=== PATIENT | female | born 2000 | race Caucasian/White ===

== ENCOUNTER 2021-05-30 15:13 | Inpatient (IN) | payer MEDICAID ==
[~2021-05-30] VITALS: Ht 157.5 cm; Wt 65.0 kg
[2021-05-30 16:25] LABS: HEMATOCRIT 42.2 % (36.0-47.0); MEAN CORPUSCULAR HEMOGLOBIN 28.6 pg (27.0-33.0); MEAN CORPUSCULAR HGB CONC 33.2 g/dl (32.0-36.5); MEAN CORPUSCULAR VOLUME 86.3 fl (80.0-96.0); PLATELET COUNT, AUTOMATED 237 10^3/uL (150-450); RED BLOOD COUNT 4.89 10^6/uL (4.00-5.40); WHITE BLOOD COUNT 12.9 10^3/uL (4.0-10.0)
[2021-05-30 16:57] LABS: AMPHETAMINES LEVEL URINE NEGATIVE (NEGATIVE); BARBITURATES URINE NEGATIVE (NEGATIVE); BENZODIAZEPINES URINE NEGATIVE (NEGATIVE); CANNABINOIDS URINE POSITIVE (NEGATIVE); COCAINE METABOLITE URINE NEGATIVE (NEGATIVE); METHADONE URINE NEGATIVE (NEGATIVE); OPIATES URINE NEGATIVE (NEGATIVE); PHENCYCLIDINE URINE NEGATIVE (NEGATIVE)
[2021-05-30 16:58] LABS: HCG, SERUM QUALITATIVE NEGATIVE (NEGATIVE)
[2021-05-30 17:11] LABS: ACETAMINOPHEN LEVEL < 2.0 UG/ML (10.0-30.0); ALBUMIN 3.9 GM/DL (3.2-5.2); ALT/SGPT 17 U/L (12-78); BILIRUBIN,DIRECT < 0.1 MG/DL (0.0-0.2); BILIRUBIN,TOTAL 0.2 MG/DL (0.2-1.0); BLOOD UREA NITROGEN 7 MG/DL (7-18); CALCIUM LEVEL 9.8 MG/DL (8.5-10.1); CARBON DIOXIDE LEVEL 23 MEQ/L (21-32); CHLORIDE LEVEL 108 MEQ/L (98-107); CREATININE FOR GFR 0.73 MG/DL (0.55-1.30); ETHYL ALCOHOL (ETHANOL) < 0.003 % (0.000-0.010); GLOMERULAR FILTRATION RATE > 60.0 (>60); GLUCOSE, FASTING 108 MG/DL (70-100); SALICYLATE LEVEL 5.1 MG/DL (5.0-30.0); SODIUM LEVEL 140 MEQ/L (136-145); TOTAL PROTEIN 7.3 GM/DL (6.4-8.2)
[2021-05-30 18:04] LABS: RSV AMPLIFICATION NEGATIVE (NEGATIVE)
[2021-05-30] MEDS ORDERED: HOME MED LIST COMPLETE! XX SCH (19:35)
[2021-05-30] MEDS ORDERED: CLAR10CA3 PO (19:35)
[2021-05-30] MEDS ORDERED: ZOLO100T PO (19:35)
[2021-05-30] MEDS ORDERED: D31000TA2 PO (19:35)
[2021-05-30] MEDS ORDERED: RISP3TAB20 PO (19:35)
[2021-05-30] MEDS ORDERED: PRAZ1CAP PO (19:35)
[2021-05-30] MEDS ORDERED: SENN-111 PO (19:35)
[2021-05-30] MEDS ORDERED: BENZ0.5T23 PO (19:35)
[2021-05-30] MEDS ORDERED: ACETAMINOPHEN TAB 650MG DOSE (2X325MG) PO PRN (22:35)
[2021-05-30] MEDS ORDERED: MAALOX 30 ML SUSP *UDC PO PRN (22:35)
[2021-05-30] MEDS ORDERED: MOM 30ML SUSPENSION UDC PO PRN (22:35)
[2021-05-30 23:12] VITALS: BP 136/77
[2021-05-30] MEDS: risperiDONE 3 MG TAB PO SCH (23:37)
[2021-05-30] MEDS: BENZTROPINE 0.5 MG TAB PO SCH (23:37)
[2021-05-30] MEDS: PRAZOSIN 1 MG CAP PO SCH (23:37)
[2021-05-30] MEDS: SENNA 8.6 MG TAB (SENOKOT) PO SCH (23:37)
[2021-05-31 06:55] VITALS: BP 120/77
[2021-05-31] MEDS: BENZTROPINE 0.5 MG TAB PO SCH ×2 (08:09→20:02)
[2021-05-31] MEDS: risperiDONE 3 MG TAB PO SCH ×2 (08:09→20:02)
[2021-05-31] MEDS: VITAMIN D 1,000 INTERNATIONAL UNITS TABLET PO SCH (08:09)
[2021-05-31] MEDS: LORATADINE 10 MG TAB PO SCH (08:10)
[2021-05-31] MEDS ORDERED: SERTRALINE HCL 50 MG TAB PO SCH (09:00)
[2021-05-31 12:34] LABS: HEMOGLOBIN 13.4 g/dl (12.0-15.5); MEAN CORPUSCULAR HEMOGLOBIN 28.2 pg (27.0-33.0); MEAN CORPUSCULAR HGB CONC 32.7 g/dl (32.0-36.5); MEAN CORPUSCULAR VOLUME 86.1 fl (80.0-96.0); PLATELET COUNT, AUTOMATED 241 10^3/uL (150-450); RED BLOOD COUNT 4.76 10^6/uL (4.00-5.40); WHITE BLOOD COUNT 7.3 10^3/uL (4.0-10.0)
[2021-05-31 16:45] VITALS: BP 139/87
[2021-05-31] MEDS: traZODone 50 MG TAB PO PRN (20:02)
[2021-05-31] MEDS: SENNA 8.6 MG TAB (SENOKOT) PO SCH (20:02)
[2021-05-31] MEDS: PRAZOSIN 1 MG CAP PO SCH (20:02)
[2021-06-01 06:52] VITALS: BP 116/66
[2021-06-01 07:39] LABS: CHOLESTEROL RISK RATIO 3.304 (<5)
[2021-06-01] MEDS: ESCITALOPRAM OXALATE 10 MG TAB (LEXAPRO) PO SCH (08:04)
[2021-06-01] MEDS: VITAMIN D 1,000 INTERNATIONAL UNITS TABLET PO SCH (08:04)
[2021-06-01] MEDS: risperiDONE 3 MG TAB PO SCH ×2 (08:04→20:44)
[2021-06-01] MEDS: LORATADINE 10 MG TAB PO SCH (08:04)
[2021-06-01] MEDS: BENZTROPINE 0.5 MG TAB PO SCH ×2 (08:04→20:43)
[2021-06-01 17:52] VITALS: BP 133/80
[2021-06-01 20:41] VITALS: BP 125/78
[2021-06-01] MEDS: PRAZOSIN 1 MG CAP PO SCH (20:41)
[2021-06-01] MEDS: SENNA 8.6 MG TAB (SENOKOT) PO SCH (20:43)
[2021-06-01] MEDS: traZODone 50 MG TAB PO PRN (20:44)
[2021-06-02 06:53] VITALS: BP 115/72
[2021-06-02] MEDS: BENZTROPINE 0.5 MG TAB PO SCH (08:30)
[2021-06-02] MEDS: LORATADINE 10 MG TAB PO SCH (08:30)
[2021-06-02] MEDS: VITAMIN D 1,000 INTERNATIONAL UNITS TABLET PO SCH (08:30)
[2021-06-02] MEDS: ESCITALOPRAM OXALATE 10 MG TAB (LEXAPRO) PO SCH (08:30)
[2021-06-02] MEDS: risperiDONE 3 MG TAB PO SCH (08:30)
[2021-06-02] MEDS ORDERED: TRAZ-252 PO (10:13)
[2021-06-02] MEDS ORDERED: LEXA1TAB PO (13:33)
== END 2021-06-02 13:10 | disposition home or self-care (01) | DRG 755 ==
LOC: M ED 15:13 → M ED INP 15:14 → M PSY 23:02
PROVIDERS: ADMIT Psychiatry & Neurology Psychiatry; ATTEND Psychiatry & Neurology Psychiatry
DX: F43.23 Adjustment disorder with mixed anxiety and depressed mood (principal); F20.9 Schizophrenia, unspecified; F43.10 Post-traumatic stress disorder, unspecified; Z79.899 Other long term (current) drug therapy; F17.200 Nicotine dependence, unspecified, uncomplicated; F12.90 Cannabis use, unspecified, uncomplicated

== ENCOUNTER 2021-07-20 12:22 | Inpatient (IN) | payer MEDICAID, OTHER ==
[~2021-07-20] VITALS: Ht 152.4 cm; Wt 70.5 kg
[~2021-07-20 12:22] MED LIST: BENZ0.5T23 PO; CLAR10CA3 PO; LEXA1TAB PO; PRAZ1CAP PO; RISP3TAB20 PO; SENN-111 PO; TRAZ-252 PO; VITA100093 PO; ZOLO100T PO
[2021-07-20] MEDS ORDERED: SERO1TAB3 (12:34)
[2021-07-20 13:32] LABS: HEMATOCRIT 44.4 % (36.0-47.0); HEMOGLOBIN 14.9 g/dl (12.0-15.5); MEAN CORPUSCULAR HEMOGLOBIN 29.2 pg (27.0-33.0); MEAN CORPUSCULAR HGB CONC 33.6 g/dl (32.0-36.5); MEAN CORPUSCULAR VOLUME 86.9 fl (80.0-96.0); PLATELET COUNT, AUTOMATED 231 10^3/uL (150-450); RED BLOOD COUNT 5.11 10^6/uL (4.00-5.40); WHITE BLOOD COUNT 9.7 10^3/uL (4.0-10.0)
[2021-07-20 14:07] LABS: ACETAMINOPHEN LEVEL < 2.0 UG/ML (10.0-30.0); ALT/SGPT 12 U/L (12-78); BILIRUBIN,DIRECT < 0.1 MG/DL (0.0-0.2); BILIRUBIN,TOTAL 0.2 MG/DL (0.2-1.0); BLOOD UREA NITROGEN 6 MG/DL (7-18); CARBON DIOXIDE LEVEL 25 MEQ/L (21-32); CHLORIDE LEVEL 111 MEQ/L (98-107); CREATININE FOR GFR 0.75 MG/DL (0.55-1.30); ETHYL ALCOHOL (ETHANOL) < 0.003 % (0.000-0.010); GLOMERULAR FILTRATION RATE > 60.0 (>60); GLUCOSE, FASTING 91 MG/DL (70-100); POTASSIUM SERUM 3.9 MEQ/L (3.5-5.1); SALICYLATE LEVEL 6.6 MG/DL (5.0-30.0); SODIUM LEVEL 141 MEQ/L (136-145); TOTAL PROTEIN 7.4 GM/DL (6.4-8.2)
[2021-07-20 14:13] LABS: AMPHETAMINES LEVEL URINE NEGATIVE (NEGATIVE); BARBITURATES URINE NEGATIVE (NEGATIVE); BENZODIAZEPINES URINE NEGATIVE (NEGATIVE); CANNABINOIDS URINE POSITIVE (NEGATIVE); COCAINE METABOLITE URINE NEGATIVE (NEGATIVE); METHADONE URINE NEGATIVE (NEGATIVE); OPIATES URINE NEGATIVE (NEGATIVE); PHENCYCLIDINE URINE NEGATIVE (NEGATIVE)
[2021-07-20] MEDS ORDERED: LORazepam 1 MG TAB PO STA (16:40)
[2021-07-20] MEDS ORDERED: MAALOX 30 ML SUSP *UDC PO PRN (17:35)
[2021-07-20] MEDS ORDERED: MOM 30ML SUSPENSION UDC PO PRN (17:35)
[2021-07-20] MEDS ORDERED: TRAZ-186 PO (19:14)
[2021-07-20] MEDS ORDERED: LEXA1TAB PO (19:14)
[2021-07-20] MEDS ORDERED: SERO1TAB3 PO (19:14)
[2021-07-20] MEDS ORDERED: HOME MED LIST COMPLETE! XX SCH (19:15)
[2021-07-20 20:59] LABS: RSV AMPLIFICATION NEGATIVE (NEGATIVE)
[2021-07-20 21:50] VITALS: BP 136/68
[2021-07-20] MEDS: QUEtiapine FUMARATE 25 MG TAB PO SCH (21:54)
[2021-07-21 06:40] VITALS: BP 120/73
[2021-07-21] MEDS ORDERED: BENZTROPINE 0.5 MG TAB PO PRN (12:10)
[2021-07-21] MEDS ORDERED: NICOTINE 21MG/24HR 1 EA TRANSDERMAL TD PRN (12:15)
[2021-07-21] MEDS: LORATADINE 10 MG TAB PO SCH (13:05)
[2021-07-21] MEDS: VITAMIN D 1,000 INTERNATIONAL UNITS TABLET PO SCH (13:05)
[2021-07-21] MEDS: traZODone 50 MG TAB PO PRN (20:32)
[2021-07-21] MEDS: QUEtiapine FUMARATE 25 MG TAB PO SCH (20:33)
[2021-07-21] MEDS ORDERED: BENZTROPINE 0.5 MG TAB PO ONE (21:00)
[2021-07-21] MEDS ORDERED: PRAZOSIN 1 MG CAP PO SCH (21:00)
[2021-07-22] MEDS: OLANZapine ORAL DISINTEGRATING TAB 5MG PO PRN (01:12)
[2021-07-22] MEDS ORDERED: LORazepam 2 MG TAB PO STA (01:56)
[2021-07-22] MEDS ORDERED: diphenhydrAMINE 50MG CAP PO STA (01:56)
[2021-07-22] MEDS: VITAMIN D 1,000 INTERNATIONAL UNITS TABLET PO SCH (09:13)
[2021-07-22] MEDS: LORATADINE 10 MG TAB PO SCH (09:13)
[2021-07-22] MEDS: ACETAMINOPHEN TAB 650MG DOSE (2X325MG) PO PRN (13:33)
[2021-07-22] MEDS: ESCITALOPRAM OXALATE 5MG TABLET (LEXAPRO) PO SCH (14:24)
[2021-07-22 18:55] VITALS: BP 140/80
[2021-07-22] MEDS: QUEtiapine FUMARATE 25 MG TAB PO SCH (20:13)
[2021-07-22] MEDS: traZODone 50 MG TAB PO PRN (20:13)
[2021-07-22] MEDS: PRAZOSIN 1 MG CAP PO SCH (20:14)
[2021-07-23 06:00] VITALS: BP 130/74
[2021-07-23] MEDS: ESCITALOPRAM OXALATE 5MG TABLET (LEXAPRO) PO SCH (09:29)
[2021-07-23] MEDS: VITAMIN D 1,000 INTERNATIONAL UNITS TABLET PO SCH (09:29)
[2021-07-23] MEDS: LORATADINE 10 MG TAB PO SCH (09:29)
[2021-07-23] MEDS ORDERED: diphenhydrAMINE 50MG CAP PO STA (14:14)
[2021-07-23] MEDS: OLANZapine ORAL DISINTEGRATING TAB 5MG PO PRN (14:14)
[2021-07-23] MEDS ORDERED: LORazepam 2 MG TAB PO STA (14:14)
[2021-07-23 18:58] VITALS: BP 140/80
[2021-07-23] MEDS: PRAZOSIN 1 MG CAP PO SCH (20:58)
[2021-07-23] MEDS: QUEtiapine FUMARATE 25 MG TAB PO SCH (20:58)
[2021-07-24 06:48] VITALS: BP 109/68
[2021-07-24] MEDS: ESCITALOPRAM OXALATE 5MG TABLET (LEXAPRO) PO SCH (08:51)
[2021-07-24] MEDS: VITAMIN D 1,000 INTERNATIONAL UNITS TABLET PO SCH (08:51)
[2021-07-24] MEDS: LORATADINE 10 MG TAB PO SCH (08:51)
[2021-07-24] MEDS: OLANZapine ORAL DISINTEGRATING TAB 5MG PO PRN (08:51)
[2021-07-24] MEDS: QUEtiapine FUMARATE 25 MG TAB PO SCH (20:43)
[2021-07-24 20:45] VITALS: BP 146/83
[2021-07-24] MEDS: PRAZOSIN 1 MG CAP PO SCH (20:45)
[2021-07-24] MEDS: ACETAMINOPHEN TAB 650MG DOSE (2X325MG) PO PRN (21:27)
[2021-07-25 06:33] VITALS: BP 145/83
[2021-07-25] MEDS: ESCITALOPRAM OXALATE 5MG TABLET (LEXAPRO) PO SCH (08:02)
[2021-07-25] MEDS: VITAMIN D 1,000 INTERNATIONAL UNITS TABLET PO SCH (08:02)
[2021-07-25] MEDS: LORATADINE 10 MG TAB PO SCH (08:02)
[2021-07-25] MEDS ORDERED: PRAZ2CAP PO (09:22)
[2021-07-25] MEDS ORDERED: LEXA5TAB13 PO (09:22)
[2021-07-25] MEDS ORDERED: NICO21PAT TD (09:22)
[2021-07-25] MEDS ORDERED: BENZ0.5T23 PO (09:22)
[2021-07-25] MEDS ORDERED: TRAZ-186 PO (09:22)
[2021-07-25] MEDS ORDERED: CLAR10TA7 PO (09:22)
[2021-07-25] MEDS ORDERED: QUET1TAB17 PO (09:22)
[2021-07-25] MEDS ORDERED: VITAD1000T PO (09:22)
== END 2021-07-25 10:45 | disposition home or self-care (01) | DRG 750 ==
LOC: M ED 12:22 → M ED INP 17:33 → M PSY 21:32
PROVIDERS: ADMIT Psychiatry & Neurology Psychiatry; ATTEND Psychiatry & Neurology Psychiatry
DX: F25.1 Schizoaffective disorder, depressive type (principal); F79 Unspecified intellectual disabilities; R45.851 Suicidal ideations; F32.9 Major depressive disorder, single episode, unspecified; F17.210 Nicotine dependence, cigarettes, uncomplicated; F12.90 Cannabis use, unspecified, uncomplicated; Z79.899 Other long term (current) drug therapy

== ENCOUNTER 2021-08-04 15:42 | Inpatient (IN) | payer MEDICAID, OTHER, SELFPAY ==
[~2021-08-04] VITALS: Ht 157.5 cm; Wt 72.9 kg
[~2021-08-04 15:42] MED LIST changes: +CLAR10TA7 PO; +LEXA5TAB13 PO; +NICO21PAT TD; +PRAZ2CAP PO; +QUET1TAB17 PO; +SERO1TAB3; +SERO1TAB3 PO; +TRAZ-186 PO; +VITAD1000T PO
[2021-08-04 16:33] LABS: HEMATOCRIT 41.5 % (36.0-47.0); HEMOGLOBIN 14.1 g/dl (12.0-15.5); MEAN CORPUSCULAR HEMOGLOBIN 29.6 pg (27.0-33.0); MEAN CORPUSCULAR VOLUME 87.2 fl (80.0-96.0); PLATELET COUNT, AUTOMATED 250 10^3/uL (150-450); RED BLOOD COUNT 4.76 10^6/uL (4.00-5.40); WHITE BLOOD COUNT 10.6 10^3/uL (4.0-10.0)
[2021-08-04 17:01] LABS: AMPHETAMINES LEVEL URINE NEGATIVE (NEGATIVE); BARBITURATES URINE NEGATIVE (NEGATIVE); BENZODIAZEPINES URINE NEGATIVE (NEGATIVE); CANNABINOIDS URINE NEGATIVE (NEGATIVE); COCAINE METABOLITE URINE NEGATIVE (NEGATIVE); METHADONE URINE NEGATIVE (NEGATIVE); OPIATES URINE NEGATIVE (NEGATIVE); PHENCYCLIDINE URINE NEGATIVE (NEGATIVE)
[2021-08-04 17:08] LABS: ACETAMINOPHEN LEVEL < 2.0 UG/ML (10.0-30.0); ALBUMIN 3.9 GM/DL (3.2-5.2); ALT/SGPT 13 U/L (12-78); BILIRUBIN,DIRECT < 0.1 MG/DL (0.0-0.2); BILIRUBIN,TOTAL 0.2 MG/DL (0.2-1.0); BLOOD UREA NITROGEN 8 MG/DL (7-18); CALCIUM LEVEL 9.8 MG/DL (8.5-10.1); CARBON DIOXIDE LEVEL 24 MEQ/L (21-32); CHLORIDE LEVEL 109 MEQ/L (98-107); CREATININE FOR GFR 0.74 MG/DL (0.55-1.30); ETHYL ALCOHOL (ETHANOL) < 0.003 % (0.000-0.010); GLOMERULAR FILTRATION RATE > 60.0 (>60); GLUCOSE, FASTING 112 MG/DL (70-100); POTASSIUM SERUM 3.7 MEQ/L (3.5-5.1); SALICYLATE LEVEL 4.8 MG/DL (5.0-30.0); SODIUM LEVEL 141 MEQ/L (136-145); THYROID STIMULATING HORMONE 0.523 uIU/ML (0.358-3.740); TOTAL PROTEIN 7.1 GM/DL (6.4-8.2)
[2021-08-04 17:13] LABS: HCG, SERUM QUALITATIVE NEGATIVE (NEGATIVE)
[2021-08-04 17:51] LABS: RSV AMPLIFICATION NEGATIVE (NEGATIVE)
[2021-08-04] MEDS ORDERED: OLANZapine ORAL DISINTEGRATING TAB 5MG PO ONE (20:40)
[2021-08-04] MEDS ORDERED: LORazepam 2 MG TAB PO STA (21:54)
[2021-08-04] MEDS ORDERED: LEXA5TAB13 PO (22:05)
[2021-08-04] MEDS ORDERED: PRAZ2CAP PO (22:05)
[2021-08-04] MEDS ORDERED: VITA100093 PO (22:05)
[2021-08-04] MEDS ORDERED: TRAZ-252 PO (22:05)
[2021-08-04] MEDS ORDERED: LORA-674 PO (22:05)
[2021-08-04] MEDS ORDERED: NICO21DI38 TOP (22:05)
[2021-08-04] MEDS ORDERED: BENZ0.5T23 PO (22:05)
[2021-08-04] MEDS ORDERED: QUET1TAB17 PO (22:05)
[2021-08-04] MEDS ORDERED: MED REC COMMENT (22:27)
[2021-08-04] MEDS ORDERED: HOME MED LIST COMPLETE! XX SCH (22:30)
[2021-08-05] MEDS ORDERED: OLANZapine 10 MG TAB PO ONE (19:50)
[2021-08-05] MEDS ORDERED: LORazepam 2 MG TAB PO STA (20:26)
[2021-08-06] MEDS ORDERED: OLANZapine ORAL DISINTEGRATING TAB 5MG PO ONE (18:05)
[2021-08-07] MEDS ORDERED: LORazepam 2 MG TAB PO STA (11:40)
[2021-08-07] MEDS ORDERED: LORazepam 1 MG TAB PO PRN (14:05)
[2021-08-07] MEDS ORDERED: diphenhydrAMINE 25MG CAP PO PRN (14:05)
[2021-08-07] MEDS ORDERED: traZODone 50 MG TAB PO PRN (14:05)
[2021-08-07] MEDS ORDERED: BENZTROPINE 0.5 MG TAB PO PRN (14:05)
[2021-08-07] MEDS: NICOTINE 14 MG/24 HR TRANSDERMAL TD SCH (16:38)
[2021-08-07] MEDS: LORATADINE 10 MG TAB PO SCH (16:38)
[2021-08-07] MEDS: VITAMIN D 1,000 INTERNATIONAL UNITS TABLET PO SCH (16:39)
[2021-08-07] MEDS ORDERED: QUEtiapine FUMARATE 25 MG TAB PO SCH (21:00)
[2021-08-08] MEDS: PRAZOSIN 1 MG CAP PO SCH ×2 (00:52→20:14)
[2021-08-08 01:04] VITALS: BP 138/79
[2021-08-08] MEDS: VITAMIN D 1,000 INTERNATIONAL UNITS TABLET PO SCH (10:56)
[2021-08-08] MEDS: NICOTINE 14 MG/24 HR TRANSDERMAL TD SCH (10:57)
[2021-08-08] MEDS: LORATADINE 10 MG TAB PO SCH (10:57)
[2021-08-08] MEDS: ESCITALOPRAM OXALATE 5MG TABLET (LEXAPRO) PO SCH (12:59)
[2021-08-08] MEDS: ACETAMINOPHEN TAB 650MG DOSE (2X325MG) PO PRN (15:45)
[2021-08-08 18:00] VITALS: BP 134/67
[2021-08-08] MEDS ORDERED: CETIRIZINE (ZyrTEC) 10 MG TAB PO ONE (20:05)
[2021-08-08] MEDS ORDERED: ALBUTEROL 90 MCG/ACT 8GM HFA INHALER INH PRN (20:05)
[2021-08-08] MEDS ORDERED: MONTELUKAST 10 MG TAB PO ONE (20:05)
[2021-08-08] MEDS: QUEtiapine FUMARATE 200 MG TAB PO SCH (20:14)
[2021-08-08] MEDS: MICONAZOLE-7 VAGINAL 2% CREAM 47.7GM PV SCH (22:43)
[2021-08-09 06:59] VITALS: BP 118/60
[2021-08-09] MEDS: ESCITALOPRAM OXALATE 5MG TABLET (LEXAPRO) PO SCH (07:49)
[2021-08-09] MEDS: LORATADINE 10 MG TAB PO SCH (07:49)
[2021-08-09] MEDS: CETIRIZINE (ZyrTEC) 10 MG TAB PO SCH (07:49)
[2021-08-09] MEDS: VITAMIN D 1,000 INTERNATIONAL UNITS TABLET PO SCH (07:49)
[2021-08-09 08:21] LABS: CHOLESTEROL RISK RATIO 5.692 (<5)
[2021-08-09 08:30] VITALS: BP 118/60
[2021-08-09] MEDS: NICOTINE 21MG/24HR 1 EA TRANSDERMAL TD SCH (12:10)
[2021-08-09 16:28] VITALS: BP 129/77
[2021-08-09] MEDS: QUEtiapine FUMARATE 200 MG TAB PO SCH (20:09)
[2021-08-09] MEDS: traZODone 50 MG TAB PO PRN (20:09)
[2021-08-09] MEDS: PRAZOSIN 1 MG CAP PO SCH (20:09)
[2021-08-09] MEDS: MICONAZOLE-7 VAGINAL 2% CREAM 47.7GM PV SCH (20:56)
[2021-08-10 06:28] VITALS: BP 136/60
[2021-08-10] MEDS: VITAMIN D 1,000 INTERNATIONAL UNITS TABLET PO SCH (08:17)
[2021-08-10] MEDS: LORATADINE 10 MG TAB PO SCH (08:18)
[2021-08-10] MEDS: ESCITALOPRAM OXALATE 5MG TABLET (LEXAPRO) PO SCH (08:18)
[2021-08-10] MEDS: CETIRIZINE (ZyrTEC) 10 MG TAB PO SCH (08:18)
[2021-08-10] MEDS: NICOTINE 21MG/24HR 1 EA TRANSDERMAL TD SCH (08:18)
[2021-08-10] MEDS: BENZTROPINE 0.5 MG TAB PO SCH ×2 (11:37→20:17)
[2021-08-10] MEDS: MOM 30ML SUSPENSION UDC PO PRN (12:40)
[2021-08-10 18:30] VITALS: BP 132/80
[2021-08-10] MEDS: traZODone 50 MG TAB PO PRN (20:17)
[2021-08-10] MEDS: PRAZOSIN 1 MG CAP PO SCH (20:17)
[2021-08-10] MEDS: QUEtiapine FUMARATE 200 MG TAB PO SCH (20:18)
[2021-08-10] MEDS: MICONAZOLE-7 VAGINAL 2% CREAM 47.7GM PV SCH (20:18)
[2021-08-11 07:09] VITALS: BP 131/64
[2021-08-11] MEDS: CETIRIZINE (ZyrTEC) 10 MG TAB PO SCH (08:32)
[2021-08-11] MEDS: NICOTINE 21MG/24HR 1 EA TRANSDERMAL TD SCH (08:32)
[2021-08-11] MEDS: BENZTROPINE 0.5 MG TAB PO SCH ×2 (08:33→20:09)
[2021-08-11] MEDS: ESCITALOPRAM OXALATE 5MG TABLET (LEXAPRO) PO SCH (08:33)
[2021-08-11] MEDS: VITAMIN D 1,000 INTERNATIONAL UNITS TABLET PO SCH (08:33)
[2021-08-11] MEDS: LORATADINE 10 MG TAB PO SCH (08:33)
[2021-08-11 16:17] VITALS: BP 124/79
[2021-08-11] MEDS: MOM 30ML SUSPENSION UDC PO PRN (19:02)
[2021-08-11] MEDS: PRAZOSIN 1 MG CAP PO SCH (20:09)
[2021-08-11] MEDS: MICONAZOLE-7 VAGINAL 2% CREAM 47.7GM PV SCH (20:09)
[2021-08-11] MEDS: QUEtiapine FUMARATE 200 MG TAB PO SCH (20:09)
[2021-08-12] MEDS: NICOTINE 21MG/24HR 1 EA TRANSDERMAL TD SCH (08:13)
[2021-08-12] MEDS: ESCITALOPRAM OXALATE 5MG TABLET (LEXAPRO) PO SCH (08:16)
[2021-08-12] MEDS: LORATADINE 10 MG TAB PO SCH (08:16)
[2021-08-12] MEDS: BENZTROPINE 0.5 MG TAB PO SCH ×2 (08:16→20:06)
[2021-08-12] MEDS: CETIRIZINE (ZyrTEC) 10 MG TAB PO SCH (08:16)
[2021-08-12] MEDS: VITAMIN D 1,000 INTERNATIONAL UNITS TABLET PO SCH (08:16)
[2021-08-12] MEDS: SENNA 8.6 MG TAB (SENOKOT) PO PRN ×2 (14:03→20:07)
[2021-08-12 17:06] VITALS: BP 124/56
[2021-08-12] MEDS: PRAZOSIN 1 MG CAP PO SCH (20:06)
[2021-08-12] MEDS: MICONAZOLE-7 VAGINAL 2% CREAM 47.7GM PV SCH (20:06)
[2021-08-12] MEDS: QUEtiapine FUMARATE 200 MG TAB PO SCH (20:06)
[2021-08-12] MEDS: traZODone 50 MG TAB PO PRN (20:09)
[2021-08-12] MEDS: ACETAMINOPHEN TAB 650MG DOSE (2X325MG) PO PRN (21:42)
[2021-08-13] MEDS: BENZTROPINE 0.5 MG TAB PO SCH ×2 (07:51→20:00)
[2021-08-13] MEDS: CETIRIZINE (ZyrTEC) 10 MG TAB PO SCH (07:51)
[2021-08-13] MEDS: LORATADINE 10 MG TAB PO SCH (07:51)
[2021-08-13] MEDS: VITAMIN D 1,000 INTERNATIONAL UNITS TABLET PO SCH (07:51)
[2021-08-13] MEDS: NICOTINE 21MG/24HR 1 EA TRANSDERMAL TD SCH (07:52)
[2021-08-13] MEDS: ESCITALOPRAM OXALATE 5MG TABLET (LEXAPRO) PO SCH (07:52)
[2021-08-13] MEDS: SENNA 8.6 MG TAB (SENOKOT) PO PRN (14:01)
[2021-08-13 16:41] VITALS: BP 135/68
[2021-08-13 20:01] VITALS: BP 134/73
[2021-08-13] MEDS: PRAZOSIN 1 MG CAP PO SCH (20:01)
[2021-08-13] MEDS: QUEtiapine FUMARATE 200 MG TAB PO SCH (20:01)
[2021-08-13] MEDS: traZODone 50 MG TAB PO PRN (20:02)
[2021-08-13] MEDS: MAALOX 30 ML SUSP *UDC PO PRN (20:37)
[2021-08-14 06:20] VITALS: BP 129/60
[2021-08-14] MEDS: CETIRIZINE (ZyrTEC) 10 MG TAB PO SCH (08:01)
[2021-08-14] MEDS: SENNA 8.6 MG TAB (SENOKOT) PO PRN (08:01)
[2021-08-14] MEDS: VITAMIN D 1,000 INTERNATIONAL UNITS TABLET PO SCH (08:03)
[2021-08-14] MEDS: BENZTROPINE 0.5 MG TAB PO SCH (08:03)
[2021-08-14] MEDS: LORATADINE 10 MG TAB PO SCH (08:03)
[2021-08-14] MEDS: NICOTINE 21MG/24HR 1 EA TRANSDERMAL TD SCH (08:03)
[2021-08-14] MEDS: ESCITALOPRAM OXALATE 5MG TABLET (LEXAPRO) PO SCH (08:03)
[2021-08-14] MEDS ORDERED: LEXA5TAB13 PO (08:56)
[2021-08-14] MEDS ORDERED: QUET200T2 PO (08:56)
[2021-08-14] MEDS ORDERED: BENZ0.5T23 PO (08:56)
[2021-08-14] MEDS ORDERED: SENN18TA PO (08:56)
[2021-08-14] MEDS ORDERED: HALO5TAB33 PO (08:56)
[2021-08-14] MEDS ORDERED: PRAZ2CAP PO (08:56)
[2021-08-14] MEDS ORDERED: TRAZ-252 PO (08:56)
[2021-08-14] MEDS ORDERED: LEXA1TAB PO (08:56)
[2021-08-14] MEDS: MAALOX 30 ML SUSP *UDC PO PRN (13:01)
== END 2021-08-14 14:00 | disposition home or self-care (01) | DRG 750 ==
LOC: M ED 15:42 → M ED INP 08-07 14:40 → M PSY 08-08 00:29
PROVIDERS: ADMIT Student in an Organized Health Care Education/Training Program; ATTEND Student in an Organized Health Care Education/Training Program
DX: F20.9 Schizophrenia, unspecified (principal); F79 Unspecified intellectual disabilities; R45.851 Suicidal ideations; F41.9 Anxiety disorder, unspecified; N76.0 Acute vaginitis; G24.01 Drug induced subacute dyskinesia; Z88.8 Allergy status to other drugs, medicaments and biological substances; F43.10 Post-traumatic stress disorder, unspecified; J45.909 Unspecified asthma, uncomplicated; F17.200 Nicotine dependence, unspecified, uncomplicated; Z79.899 Other long term (current) drug therapy; Z91.410 Personal history of adult physical and sexual abuse

== ENCOUNTER 2021-08-17 11:23 | Inpatient (IN) | payer MEDICAID, SELFPAY ==
[~2021-08-17] VITALS: Ht 157.5 cm; Wt 56.8 kg
[2021-08-17] MEDS: NICOTINE 21MG/24HR 1 EA TRANSDERMAL TD SCH (09:00)
[~2021-08-17 11:23] MED LIST changes: +HALO5TAB33 PO; +LORA-674 PO; +MED REC COMMENT; +NICO21DI38 TOP; +QUET200T2 PO; +SENN18TA PO
[2021-08-17] MEDS ORDERED: PRAZ1CAP (11:35)
[2021-08-17 12:02] LABS: HEMATOCRIT 40.8 % (36.0-47.0); HEMOGLOBIN 13.4 g/dl (12.0-15.5); MEAN CORPUSCULAR HEMOGLOBIN 28.6 pg (27.0-33.0); MEAN CORPUSCULAR HGB CONC 32.8 g/dl (32.0-36.5); PLATELET COUNT, AUTOMATED 216 10^3/uL (150-450); RED BLOOD COUNT 4.69 10^6/uL (4.00-5.40); WHITE BLOOD COUNT 8.3 10^3/uL (4.0-10.0)
[2021-08-17 12:26] LABS: AMPHETAMINES LEVEL URINE NEGATIVE (NEGATIVE); BARBITURATES URINE NEGATIVE (NEGATIVE); BENZODIAZEPINES URINE NEGATIVE (NEGATIVE); CANNABINOIDS URINE NEGATIVE (NEGATIVE); COCAINE METABOLITE URINE NEGATIVE (NEGATIVE); METHADONE URINE NEGATIVE (NEGATIVE); OPIATES URINE NEGATIVE (NEGATIVE); PHENCYCLIDINE URINE NEGATIVE (NEGATIVE)
[2021-08-17 12:36] LABS: ACETAMINOPHEN LEVEL < 2.0 UG/ML (10.0-30.0); ALBUMIN 3.6 GM/DL (3.2-5.2); ALT/SGPT 23 U/L (12-78); BILIRUBIN,DIRECT < 0.1 MG/DL (0.0-0.2); BILIRUBIN,TOTAL < 0.1 MG/DL (0.2-1.0); BLOOD UREA NITROGEN 11 MG/DL (7-18); CALCIUM LEVEL 9.9 MG/DL (8.5-10.1); CARBON DIOXIDE LEVEL 25 MEQ/L (21-32); CHLORIDE LEVEL 111 MEQ/L (98-107); CREATININE FOR GFR 0.58 MG/DL (0.55-1.30); ETHYL ALCOHOL (ETHANOL) < 0.003 % (0.000-0.010); GLOMERULAR FILTRATION RATE > 60.0 (>60); GLUCOSE, FASTING 86 MG/DL (70-100); POTASSIUM SERUM 4.1 MEQ/L (3.5-5.1); SALICYLATE LEVEL 2.3 MG/DL (5.0-30.0); SODIUM LEVEL 142 MEQ/L (136-145); TOTAL PROTEIN 6.6 GM/DL (6.4-8.2)
[2021-08-17 12:45] LABS: HCG, SERUM QUALITATIVE NEGATIVE (NEGATIVE)
[2021-08-17] MEDS ORDERED: MOM 30ML SUSPENSION UDC PO PRN (14:40)
[2021-08-17] MEDS ORDERED: MAALOX 30 ML SUSP *UDC PO PRN (14:40)
[2021-08-17] MEDS ORDERED: NICO21DI38 TD (14:46)
[2021-08-17] MEDS ORDERED: LORA-674 PO (14:46)
[2021-08-17] MEDS ORDERED: PRAZ2CAP PO (14:46)
[2021-08-17] MEDS ORDERED: VITA100093 PO (14:46)
[2021-08-17] MEDS ORDERED: BENZ0.5T23 PO (14:46)
[2021-08-17] MEDS ORDERED: LEXA5TAB13 PO (14:46)
[2021-08-17] MEDS ORDERED: SENN-80 PO (14:46)
[2021-08-17] MEDS ORDERED: TRAZ-186 PO (14:46)
[2021-08-17] MEDS ORDERED: HALO5TAB33 PO (14:46)
[2021-08-17] MEDS ORDERED: QUET200T2 PO (14:46)
[2021-08-17] MEDS ORDERED: HOME MED LIST COMPLETE! XX SCH (14:50)
[2021-08-17] MEDS ORDERED: BENZTROPINE 0.5 MG TAB PO PRN (15:15)
[2021-08-17 15:24] LABS: RSV AMPLIFICATION NEGATIVE (NEGATIVE)
[2021-08-17 17:10] VITALS: BP 132/63
[2021-08-17] MEDS: QUEtiapine FUMARATE 200 MG TAB PO SCH (20:03)
[2021-08-17] MEDS: PRAZOSIN 1 MG CAP PO SCH (20:04)
[2021-08-17] MEDS: traZODone 50 MG TAB PO PRN (22:12)
[2021-08-18 06:31] VITALS: BP 124/61
[2021-08-18] MEDS: SENNA 8.6 MG TAB (SENOKOT) PO PRN (08:15)
[2021-08-18] MEDS: ESCITALOPRAM OXALATE 5MG TABLET (LEXAPRO) PO SCH (08:16)
[2021-08-18] MEDS: VITAMIN D 1,000 INTERNATIONAL UNITS TABLET PO SCH (08:16)
[2021-08-18] MEDS: NICOTINE 21MG/24HR 1 EA TRANSDERMAL TD SCH (08:16)
[2021-08-18] MEDS: LORATADINE 10 MG TAB PO SCH (10:04)
[2021-08-18] MEDS: ACETAMINOPHEN TAB 650MG DOSE (2X325MG) PO PRN (16:58)
[2021-08-18 18:30] VITALS: BP 134/73
[2021-08-18] MEDS: QUEtiapine FUMARATE 200 MG TAB PO SCH (20:02)
[2021-08-18] MEDS: traZODone 50 MG TAB PO PRN (20:03)
[2021-08-18] MEDS: PRAZOSIN 1 MG CAP PO SCH (20:03)
[2021-08-19 07:08] VITALS: BP 117/64
[2021-08-19] MEDS: NICOTINE 21MG/24HR 1 EA TRANSDERMAL TD SCH (08:09)
[2021-08-19] MEDS: VITAMIN D 1,000 INTERNATIONAL UNITS TABLET PO SCH (08:09)
[2021-08-19] MEDS: LORATADINE 10 MG TAB PO SCH (08:10)
[2021-08-19] MEDS: ESCITALOPRAM OXALATE 5MG TABLET (LEXAPRO) PO SCH (08:10)
[2021-08-19] MEDS ORDERED: OLANZapine ORAL DISINTEGRATING TAB 5MG PO PRN (15:55)
[2021-08-19 18:09] VITALS: BP 124/66
[2021-08-19] MEDS: QUEtiapine FUMARATE 200 MG TAB PO SCH (21:22)
[2021-08-19] MEDS: traZODone 50 MG TAB PO PRN (21:22)
[2021-08-19] MEDS: PRAZOSIN 1 MG CAP PO SCH (21:22)
[2021-08-20 06:54] VITALS: BP 127/79
[2021-08-20] MEDS: ESCITALOPRAM OXALATE 5MG TABLET (LEXAPRO) PO SCH (08:17)
[2021-08-20] MEDS: LORATADINE 10 MG TAB PO SCH (08:17)
[2021-08-20] MEDS: VITAMIN D 1,000 INTERNATIONAL UNITS TABLET PO SCH (08:17)
[2021-08-20] MEDS: NICOTINE 21MG/24HR 1 EA TRANSDERMAL TD SCH (08:17)
[2021-08-20 08:50] VITALS: BP 140/88
[2021-08-20] MEDS ORDERED: HALOPERIDOL DECANOATE 100 MG/ML VIAL (J1631) IM SCH (09:00)
[2021-08-20] MEDS ORDERED: buPROPion **XL** TABLET 150MG (WELLBUTRIN XL) PO SCH (09:00)
[2021-08-20 18:12] VITALS: BP 143/61
[2021-08-20] MEDS: QUEtiapine FUMARATE 200 MG TAB PO SCH (20:08)
[2021-08-20] MEDS: traZODone 50 MG TAB PO PRN (20:08)
[2021-08-20] MEDS: PRAZOSIN 1 MG CAP PO SCH (20:08)
[2021-08-21 06:49] VITALS: BP 108/61
[2021-08-21] MEDS: VITAMIN D 1,000 INTERNATIONAL UNITS TABLET PO SCH (08:39)
[2021-08-21] MEDS: ESCITALOPRAM OXALATE 5MG TABLET (LEXAPRO) PO SCH (08:39)
[2021-08-21] MEDS: buPROPion **XL** TABLET 150MG (WELLBUTRIN XL) PO SCH (08:39)
[2021-08-21] MEDS: SENNA 8.6 MG TAB (SENOKOT) PO PRN (08:39)
[2021-08-21] MEDS: NICOTINE 21MG/24HR 1 EA TRANSDERMAL TD SCH ×2 (08:40→11:30)
[2021-08-21] MEDS: LORATADINE 10 MG TAB PO SCH ×2 (09:00→11:30)
[2021-08-21 16:08] VITALS: BP 130/73
[2021-08-21] MEDS: traZODone 50 MG TAB PO PRN (20:29)
[2021-08-21 20:30] VITALS: BP 124/76
[2021-08-21] MEDS: PRAZOSIN 1 MG CAP PO SCH (20:30)
[2021-08-21] MEDS: QUEtiapine FUMARATE 200 MG TAB PO SCH (20:30)
[2021-08-22 06:13] VITALS: BP 139/74
[2021-08-22] MEDS ORDERED: BUPR150T12 PO (08:07)
[2021-08-22] MEDS ORDERED: NICO21PAT TD (08:07)
[2021-08-22] MEDS ORDERED: NICO21DI38 TD (08:07)
[2021-08-22] MEDS ORDERED: TRAZ-186 PO (08:07)
[2021-08-22] MEDS ORDERED: HALO10AM IM (08:07)
[2021-08-22] MEDS ORDERED: BENZ0.5T23 PO (08:07)
[2021-08-22] MEDS ORDERED: QUET200T2 PO (08:07)
[2021-08-22] MEDS ORDERED: PRAZ2CAP PO (08:07)
[2021-08-22] MEDS ORDERED: LEXA5TAB13 PO (08:07)
[2021-08-22] MEDS: ESCITALOPRAM OXALATE 5MG TABLET (LEXAPRO) PO SCH (08:11)
[2021-08-22] MEDS: SENNA 8.6 MG TAB (SENOKOT) PO PRN (08:11)
[2021-08-22] MEDS: buPROPion **XL** TABLET 150MG (WELLBUTRIN XL) PO SCH (08:11)
[2021-08-22] MEDS: NICOTINE 21MG/24HR 1 EA TRANSDERMAL TD SCH (08:11)
[2021-08-22] MEDS: LORATADINE 10 MG TAB PO SCH (08:11)
[2021-08-22] MEDS: VITAMIN D 1,000 INTERNATIONAL UNITS TABLET PO SCH (08:11)
[2021-08-22] MEDS: ACETAMINOPHEN TAB 650MG DOSE (2X325MG) PO PRN (08:50)
== END 2021-08-22 12:01 | disposition home or self-care (01) | DRG 750 ==
LOC: M ED 11:23 → M ED INP 14:36 → M PSY 16:29
PROVIDERS: ADMIT Student in an Organized Health Care Education/Training Program; ATTEND Student in an Organized Health Care Education/Training Program
DX: F20.9 Schizophrenia, unspecified (principal); R45.851 Suicidal ideations; F43.10 Post-traumatic stress disorder, unspecified; F41.9 Anxiety disorder, unspecified; F17.200 Nicotine dependence, unspecified, uncomplicated; Z79.899 Other long term (current) drug therapy; Z88.8 Allergy status to other drugs, medicaments and biological substances; J45.909 Unspecified asthma, uncomplicated; F12.90 Cannabis use, unspecified, uncomplicated; E55.9 Vitamin D deficiency, unspecified

== ENCOUNTER 2021-08-25 16:53 | Inpatient (IN) | payer MEDICAID ==
[~2021-08-25] VITALS: Ht 157.5 cm; Wt 75.2 kg
[~2021-08-25 16:53] MED LIST changes: +BUPR150T12 PO; +HALO10AM IM; +NICO21DI38 TD; +PRAZ1CAP; +SENN-80 PO
[2021-08-25 18:21] LABS: HEMATOCRIT 40.2 % (36.0-47.0); HEMOGLOBIN 13.4 g/dl (12.0-15.5); MEAN CORPUSCULAR HEMOGLOBIN 28.8 pg (27.0-33.0); MEAN CORPUSCULAR HGB CONC 33.3 g/dl (32.0-36.5); MEAN CORPUSCULAR VOLUME 86.3 fl (80.0-96.0); PLATELET COUNT, AUTOMATED 224 10^3/uL (150-450); RED BLOOD COUNT 4.66 10^6/uL (4.00-5.40); WHITE BLOOD COUNT 8.3 10^3/uL (4.0-10.0)
[2021-08-25 18:46] LABS: AMPHETAMINES LEVEL URINE NEGATIVE (NEGATIVE); BARBITURATES URINE NEGATIVE (NEGATIVE); BENZODIAZEPINES URINE NEGATIVE (NEGATIVE); CANNABINOIDS URINE NEGATIVE (NEGATIVE); COCAINE METABOLITE URINE NEGATIVE (NEGATIVE); METHADONE URINE NEGATIVE (NEGATIVE); OPIATES URINE NEGATIVE (NEGATIVE); PHENCYCLIDINE URINE NEGATIVE (NEGATIVE)
[2021-08-25 19:02] LABS: HCG, SERUM QUALITATIVE NEGATIVE (NEGATIVE)
[2021-08-25 19:03] LABS: RSV AMPLIFICATION NEGATIVE (NEGATIVE)
[2021-08-25 19:09] LABS: ACETAMINOPHEN LEVEL < 2.0 UG/ML (10.0-30.0); ALBUMIN 3.5 GM/DL (3.2-5.2); ALT/SGPT 25 U/L (12-78); BILIRUBIN,DIRECT < 0.1 MG/DL (0.0-0.2); BILIRUBIN,TOTAL 0.2 MG/DL (0.2-1.0); BLOOD UREA NITROGEN 6 MG/DL (7-18); CALCIUM LEVEL 9.4 MG/DL (8.5-10.1); CARBON DIOXIDE LEVEL 28 MEQ/L (21-32); CHLORIDE LEVEL 107 MEQ/L (98-107); CREATININE FOR GFR 0.66 MG/DL (0.55-1.30); ETHYL ALCOHOL (ETHANOL) < 0.003 % (0.000-0.010); GLOMERULAR FILTRATION RATE > 60.0 (>60); GLUCOSE, FASTING 88 MG/DL (70-100); POTASSIUM SERUM 4.1 MEQ/L (3.5-5.1); SALICYLATE LEVEL 1.8 MG/DL (5.0-30.0); SODIUM LEVEL 139 MEQ/L (136-145); THYROID STIMULATING HORMONE 0.954 uIU/ML (0.358-3.740); TOTAL PROTEIN 6.6 GM/DL (6.4-8.2)
[2021-08-25] MEDS ORDERED: BENZ0.5T23 PO (20:06)
[2021-08-25] MEDS ORDERED: LEXA5TAB13 PO (20:06)
[2021-08-25] MEDS ORDERED: PRAZ2CAP PO (20:06)
[2021-08-25] MEDS ORDERED: QUET200T2 PO (20:06)
[2021-08-25] MEDS ORDERED: BUPR150T12 PO (20:06)
[2021-08-25] MEDS ORDERED: TRAZ-252 PO (20:07)
[2021-08-25] MEDS ORDERED: HOME MED LIST COMPLETE! XX SCH (20:10)
[2021-08-25] MEDS ORDERED: BENZTROPINE 0.5 MG TAB PO ONE (22:40)
[2021-08-25] MEDS ORDERED: QUEtiapine FUMARATE 200 MG TAB PO ONE (22:45)
[2021-08-25] MEDS ORDERED: PRAZOSIN 1 MG CAP PO ONE (22:45)
[2021-08-25] MEDS ORDERED: traZODone 50 MG TAB PO ONE (22:45)
[2021-08-26] MEDS ORDERED: buPROPion **XL** TABLET 150MG (WELLBUTRIN XL) PO SCH ×2 (08:55→09:00)
[2021-08-26] MEDS ORDERED: buPROPion 75 MG TAB PO SCH (09:00)
[2021-08-26] MEDS: LORATADINE 10 MG TAB PO SCH (09:28)
[2021-08-26] MEDS: buPROPion **XL** TABLET 150MG (WELLBUTRIN XL) PO SCH (09:29)
[2021-08-26] MEDS: SENNA 8.6 MG TAB (SENOKOT) PO SCH (09:29)
[2021-08-26] MEDS: ESCITALOPRAM OXALATE 5MG TABLET (LEXAPRO) PO SCH (09:29)
[2021-08-26] MEDS ORDERED: BENZTROPINE 0.5 MG TAB PO ONE (19:05)
[2021-08-26] MEDS ORDERED: QUEtiapine FUMARATE 200 MG TAB PO ONE (19:05)
[2021-08-26] MEDS ORDERED: traZODone 50 MG TAB PO ONE (19:05)
[2021-08-27] MEDS: SENNA 8.6 MG TAB (SENOKOT) PO SCH (09:17)
[2021-08-27] MEDS: ESCITALOPRAM OXALATE 5MG TABLET (LEXAPRO) PO SCH (09:17)
[2021-08-27] MEDS: buPROPion **XL** TABLET 150MG (WELLBUTRIN XL) PO SCH (09:17)
[2021-08-27] MEDS: LORATADINE 10 MG TAB PO SCH (09:17)
[2021-08-27] MEDS ORDERED: QUEtiapine FUMARATE 200 MG TAB PO ONE (20:40)
[2021-08-27] MEDS ORDERED: traZODone 50 MG TAB PO ONE (20:40)
[2021-08-27] MEDS ORDERED: PRAZOSIN 1 MG CAP PO SCH (21:00)
[2021-08-28] MEDS: ESCITALOPRAM OXALATE 5MG TABLET (LEXAPRO) PO SCH (09:45)
[2021-08-28] MEDS: SENNA 8.6 MG TAB (SENOKOT) PO SCH (09:45)
[2021-08-28] MEDS: buPROPion **XL** TABLET 150MG (WELLBUTRIN XL) PO SCH (09:45)
[2021-08-28] MEDS: LORATADINE 10 MG TAB PO SCH (09:45)
[2021-08-28] MEDS ORDERED: NICOTINE 21MG/24HR 1 EA TRANSDERMAL TD ONE (11:10)
[2021-08-28] MEDS ORDERED: LORazepam 1 MG TAB PO PRN (14:15)
[2021-08-28] MEDS ORDERED: MAALOX 30 ML SUSP *UDC PO PRN (14:15)
[2021-08-28] MEDS ORDERED: MOM 30ML SUSPENSION UDC PO PRN (14:15)
[2021-08-28] MEDS ORDERED: IBUPROFEN 400MG TAB PO PRN (14:15)
[2021-08-28] MEDS ORDERED: SENNA 8.6 MG TAB (SENOKOT) PO PRN (14:15)
[2021-08-28] MEDS: VITAMIN D 1,000 INTERNATIONAL UNITS TABLET PO SCH (16:37)
[2021-08-28] MEDS: traZODone 50 MG TAB PO SCH (20:44)
[2021-08-28] MEDS: BENZTROPINE 0.5 MG TAB PO SCH (20:44)
[2021-08-28] MEDS: QUEtiapine FUMARATE 200 MG TAB PO SCH (20:44)
[2021-08-28] MEDS: PRAZOSIN 1 MG CAP PO SCH (20:46)
[2021-08-28 22:07] VITALS: BP 131/80
[2021-08-29 07:08] VITALS: BP 138/64
[2021-08-29] MEDS: ESCITALOPRAM OXALATE 5MG TABLET (LEXAPRO) PO SCH (09:14)
[2021-08-29] MEDS: buPROPion **XL** TABLET 150MG (WELLBUTRIN XL) PO SCH (09:14)
[2021-08-29] MEDS: LORATADINE 10 MG TAB PO SCH (09:14)
[2021-08-29] MEDS: BENZTROPINE 0.5 MG TAB PO SCH ×2 (09:14→20:04)
[2021-08-29] MEDS: VITAMIN D 1,000 INTERNATIONAL UNITS TABLET PO SCH (09:14)
[2021-08-29] MEDS: NICOTINE 21MG/24HR 1 EA TRANSDERMAL TD SCH (09:15)
[2021-08-29 19:17] VITALS: BP 142/86
[2021-08-29] MEDS: QUEtiapine FUMARATE 200 MG TAB PO SCH (20:04)
[2021-08-29] MEDS: traZODone 50 MG TAB PO SCH (20:04)
[2021-08-29] MEDS: PRAZOSIN 1 MG CAP PO SCH (20:05)
[2021-08-30 06:45] VITALS: BP 124/68
[2021-08-30] MEDS ORDERED: PROPRANOLOL 10 MG TAB PO PRN (07:55)
[2021-08-30] MEDS: BENZTROPINE 0.5 MG TAB PO SCH ×2 (08:01→20:01)
[2021-08-30] MEDS: ESCITALOPRAM OXALATE 5MG TABLET (LEXAPRO) PO SCH (08:01)
[2021-08-30] MEDS: buPROPion **XL** TABLET 150MG (WELLBUTRIN XL) PO SCH (08:01)
[2021-08-30] MEDS: VITAMIN D 1,000 INTERNATIONAL UNITS TABLET PO SCH (08:01)
[2021-08-30] MEDS: NICOTINE 21MG/24HR 1 EA TRANSDERMAL TD SCH (08:01)
[2021-08-30] MEDS: LORATADINE 10 MG TAB PO SCH (08:01)
[2021-08-30 17:53] VITALS: BP 145/29
[2021-08-30 20:01] VITALS: BP 130/74
[2021-08-30] MEDS: traZODone 50 MG TAB PO SCH (20:01)
[2021-08-30] MEDS: PRAZOSIN 1 MG CAP PO SCH (20:01)
[2021-08-30] MEDS: QUEtiapine FUMARATE 200 MG TAB PO SCH (20:01)
[2021-08-31 06:19] VITALS: BP 131/64
[2021-08-31] MEDS: VITAMIN D 1,000 INTERNATIONAL UNITS TABLET PO SCH (08:20)
[2021-08-31] MEDS: LORATADINE 10 MG TAB PO SCH (08:20)
[2021-08-31] MEDS: buPROPion **XL** TABLET 150MG (WELLBUTRIN XL) PO SCH (08:20)
[2021-08-31] MEDS: NICOTINE 21MG/24HR 1 EA TRANSDERMAL TD SCH (08:21)
[2021-08-31] MEDS: ESCITALOPRAM OXALATE 5MG TABLET (LEXAPRO) PO SCH (08:21)
[2021-08-31] MEDS: BENZTROPINE 0.5 MG TAB PO SCH (08:21)
[2021-08-31] MEDS ORDERED: QUET200T2 PO (09:28)
[2021-08-31] MEDS ORDERED: HALO5TAB33 PO (09:28)
[2021-08-31] MEDS ORDERED: TRAZ-252 PO (09:28)
[2021-08-31] MEDS ORDERED: ATIV1TAB7 PO (09:28)
[2021-08-31] MEDS ORDERED: PROP10TA56 PO (09:28)
[2021-08-31] MEDS ORDERED: HALO10AM IM (09:28)
[2021-08-31] MEDS ORDERED: LEXA5TAB13 PO ×2 (09:28→15:30)
[2021-08-31] MEDS ORDERED: NICO21PAT TD (09:28)
[2021-08-31] MEDS ORDERED: BUPR150T12 PO (09:28)
[2021-08-31] MEDS ORDERED: BENZ0.5T23 PO (09:28)
[2021-08-31] MEDS ORDERED: PRAZ2CAP PO (09:28)
[2021-08-31] MEDS ORDERED: LEXA1TAB PO (15:30)
== END 2021-08-31 13:15 | disposition home or self-care (01) | DRG 750 ==
LOC: M ED 16:53 → M ED INP 08-28 14:14 → M PSY 08-28 22:00
PROVIDERS: ADMIT Student in an Organized Health Care Education/Training Program; ATTEND Student in an Organized Health Care Education/Training Program
DX: F20.9 Schizophrenia, unspecified (principal); F17.200 Nicotine dependence, unspecified, uncomplicated; F12.90 Cannabis use, unspecified, uncomplicated; F43.10 Post-traumatic stress disorder, unspecified; F60.89 Other specific personality disorders; Z79.899 Other long term (current) drug therapy; Z88.8 Allergy status to other drugs, medicaments and biological substances; J45.909 Unspecified asthma, uncomplicated

== ENCOUNTER 2021-09-16 13:46 | Inpatient (IN) | payer MEDICAID ==
[~2021-09-16] VITALS: Ht 157.5 cm; Wt 76.2 kg
[~2021-09-16 13:46] MED LIST changes: +ATIV1TAB7 PO; +PROP10TA56 PO
[2021-09-16 15:02] LABS: HEMATOCRIT 40.2 % (36.0-47.0); HEMOGLOBIN 13.4 g/dl (12.0-15.5); MEAN CORPUSCULAR HEMOGLOBIN 29.1 pg (27.0-33.0); MEAN CORPUSCULAR HGB CONC 33.3 g/dl (32.0-36.5); MEAN CORPUSCULAR VOLUME 87.2 fl (80.0-96.0); PLATELET COUNT, AUTOMATED 223 10^3/uL (150-450); RED BLOOD COUNT 4.61 10^6/uL (4.00-5.40); WHITE BLOOD COUNT 7.7 10^3/uL (4.0-10.0)
[2021-09-16 15:18] LABS: AMPHETAMINES LEVEL URINE NEGATIVE (NEGATIVE); BARBITURATES URINE NEGATIVE (NEGATIVE); BENZODIAZEPINES URINE NEGATIVE (NEGATIVE); CANNABINOIDS URINE NEGATIVE (NEGATIVE); COCAINE METABOLITE URINE NEGATIVE (NEGATIVE); METHADONE URINE NEGATIVE (NEGATIVE); OPIATES URINE NEGATIVE (NEGATIVE); PHENCYCLIDINE URINE NEGATIVE (NEGATIVE)
[2021-09-16 15:21] LABS: HCG, SERUM QUALITATIVE NEGATIVE (NEGATIVE)
[2021-09-16 15:28] LABS: RSV AMPLIFICATION NEGATIVE (NEGATIVE)
[2021-09-16 15:31] LABS: ACETAMINOPHEN LEVEL < 2.0 UG/ML (10.0-30.0); ALBUMIN 3.6 GM/DL (3.2-5.2); ALT/SGPT 14 U/L (12-78); BILIRUBIN,DIRECT < 0.1 MG/DL (0.0-0.2); BILIRUBIN,TOTAL 0.3 MG/DL (0.2-1.0); BLOOD UREA NITROGEN 8 MG/DL (7-18); CALCIUM LEVEL 9.2 MG/DL (8.5-10.1); CARBON DIOXIDE LEVEL 24 MEQ/L (21-32); CHLORIDE LEVEL 110 MEQ/L (98-107); CREATININE FOR GFR 0.68 MG/DL (0.55-1.30); ETHYL ALCOHOL (ETHANOL) < 0.003 % (0.000-0.010); GLOMERULAR FILTRATION RATE > 60.0 (>60); GLUCOSE, FASTING 90 MG/DL (70-100); POTASSIUM SERUM 4.1 MEQ/L (3.5-5.1); SALICYLATE LEVEL 2.1 MG/DL (5.0-30.0); SODIUM LEVEL 141 MEQ/L (136-145); TOTAL PROTEIN 7.1 GM/DL (6.4-8.2)
[2021-09-16] MEDS ORDERED: NICOTINE 7 MG/24 HR TRANSDERMAL TD ONE (18:10)
[2021-09-16] MEDS ORDERED: LEXA5TAB13 PO (18:41)
[2021-09-16] MEDS ORDERED: VITA100093 PO (18:41)
[2021-09-16] MEDS ORDERED: BUPR150T12 PO (18:41)
[2021-09-16] MEDS ORDERED: LORA1TAB4 PO (18:41)
[2021-09-16] MEDS ORDERED: QUET200T2 PO (18:41)
[2021-09-16] MEDS ORDERED: HALD100I2 IM (18:41)
[2021-09-16] MEDS ORDERED: PRAZ2CAP PO (18:41)
[2021-09-16] MEDS ORDERED: LORA-930 PO (18:41)
[2021-09-16] MEDS ORDERED: TRAZ-252 PO (18:41)
[2021-09-16] MEDS ORDERED: PROP10TA56 PO (18:41)
[2021-09-16] MEDS ORDERED: BENZ0.5T23 PO (18:41)
[2021-09-16] MEDS ORDERED: HALO5TAB33 PO (18:41)
[2021-09-16] MEDS ORDERED: HOME MED LIST COMPLETE! XX SCH (18:45)
[2021-09-16] MEDS ORDERED: OLANZapine ORAL DISINTEGRATING TAB 5MG PO PRN (20:15)
[2021-09-16] MEDS ORDERED: MAALOX 30 ML SUSP *UDC PO PRN (20:15)
[2021-09-16] MEDS ORDERED: MOM 30ML SUSPENSION UDC PO PRN (20:15)
[2021-09-16] MEDS ORDERED: ACETAMINOPHEN TAB 650MG DOSE (2X325MG) PO PRN (20:15)
[2021-09-16] MEDS ORDERED: QUEtiapine FUMARATE 200 MG TAB PO ONE (21:00)
[2021-09-16] MEDS ORDERED: traZODone 50 MG TAB PO ONE (21:00)
[2021-09-16] MEDS ORDERED: SENNA 8.6 MG TAB (SENOKOT) PO SCH (21:00)
[2021-09-16] MEDS ORDERED: PRAZOSIN 1 MG CAP PO SCH ×2 (21:00)
[2021-09-16] MEDS: BENZTROPINE 0.5 MG TAB PO SCH (21:00)
[2021-09-16] MEDS ORDERED: ESCITALOPRAM OXALATE 5MG TABLET (LEXAPRO) PO ONE (21:00)
[2021-09-16 21:02] VITALS: BP 134/86
[2021-09-16] MEDS ORDERED: PROPRANOLOL 10 MG TAB PO PRN (22:50)
[2021-09-17 07:06] VITALS: BP 136/84
[2021-09-17] MEDS: BENZTROPINE 0.5 MG TAB PO SCH ×2 (08:03→20:03)
[2021-09-17] MEDS: buPROPion **XL** TABLET 150MG (WELLBUTRIN XL) PO SCH (08:03)
[2021-09-17] MEDS: VITAMIN D 1,000 INTERNATIONAL UNITS TABLET PO SCH (08:03)
[2021-09-17] MEDS: NICOTINE 7 MG/24 HR TRANSDERMAL TD SCH (08:04)
[2021-09-17] MEDS ORDERED: SENNA 8.6 MG TAB (SENOKOT) PO PRN (09:00)
[2021-09-17] MEDS: LORATADINE 10 MG TAB PO SCH (14:07)
[2021-09-17 18:00] VITALS: BP 145/83
[2021-09-17] MEDS ORDERED: MIRALAX *UNIT DOSE* 17GM PACKET PO PRN (18:55)
[2021-09-17] MEDS: DOCUSATE SODIUM 100MG CAPSULE PO SCH (20:02)
[2021-09-17] MEDS: ESCITALOPRAM OXALATE 5MG TABLET (LEXAPRO) PO SCH (20:02)
[2021-09-17] MEDS: PRAZOSIN 1 MG CAP PO SCH (20:03)
[2021-09-17] MEDS: QUEtiapine FUMARATE 200 MG TAB PO SCH (20:03)
[2021-09-17] MEDS: traZODone 50 MG TAB PO PRN (20:06)
[2021-09-18 00:53] LABS: GC DNA AMPLIFICATION NEGATIVE (NEGATIVE)
[2021-09-18 07:08] VITALS: BP 141/82
[2021-09-18] MEDS: LORATADINE 10 MG TAB PO SCH (08:30)
[2021-09-18] MEDS: NICOTINE 7 MG/24 HR TRANSDERMAL TD SCH (08:31)
[2021-09-18] MEDS: buPROPion **XL** TABLET 150MG (WELLBUTRIN XL) PO SCH (08:31)
[2021-09-18] MEDS: DOCUSATE SODIUM 100MG CAPSULE PO SCH ×2 (08:31→20:03)
[2021-09-18] MEDS: VITAMIN D 1,000 INTERNATIONAL UNITS TABLET PO SCH (08:31)
[2021-09-18] MEDS: BENZTROPINE 0.5 MG TAB PO SCH ×2 (09:48→20:03)
[2021-09-18 11:50] LABS: HIV 1&2 SCREEN CENTAUR NEGATIVE (NEGATIVE)
[2021-09-18 16:15] VITALS: BP 124/73
[2021-09-18] MEDS: QUEtiapine FUMARATE 200 MG TAB PO SCH (20:03)
[2021-09-18] MEDS: ESCITALOPRAM OXALATE 5MG TABLET (LEXAPRO) PO SCH (20:03)
[2021-09-18] MEDS: traZODone 50 MG TAB PO PRN (20:03)
[2021-09-18] MEDS: PRAZOSIN 1 MG CAP PO SCH (20:04)
[2021-09-19 06:29] VITALS: BP 148/65
[2021-09-19] MEDS: LORATADINE 10 MG TAB PO SCH (08:27)
[2021-09-19] MEDS: NICOTINE 7 MG/24 HR TRANSDERMAL TD SCH (08:27)
[2021-09-19] MEDS: VITAMIN D 1,000 INTERNATIONAL UNITS TABLET PO SCH (08:27)
[2021-09-19] MEDS: buPROPion **XL** TABLET 150MG (WELLBUTRIN XL) PO SCH (08:27)
[2021-09-19] MEDS: DOCUSATE SODIUM 100MG CAPSULE PO SCH ×2 (08:27→20:05)
[2021-09-19] MEDS: BENZTROPINE 0.5 MG TAB PO SCH ×2 (08:27→20:05)
[2021-09-19 16:50] VITALS: BP 135/83
[2021-09-19] MEDS: LORazepam 1 MG TAB PO PRN (19:48)
[2021-09-19] MEDS: ESCITALOPRAM OXALATE 5MG TABLET (LEXAPRO) PO SCH (20:04)
[2021-09-19 20:05] VITALS: BP 148/90
[2021-09-19] MEDS: traZODone 50 MG TAB PO PRN (20:05)
[2021-09-19] MEDS: QUEtiapine FUMARATE 200 MG TAB PO SCH (20:05)
[2021-09-19] MEDS: PRAZOSIN 1 MG CAP PO SCH (20:05)
[2021-09-20 06:29] VITALS: BP 105/56
[2021-09-20] MEDS: DOCUSATE SODIUM 100MG CAPSULE PO SCH (07:57)
[2021-09-20] MEDS: BENZTROPINE 0.5 MG TAB PO SCH (07:57)
[2021-09-20] MEDS: VITAMIN D 1,000 INTERNATIONAL UNITS TABLET PO SCH (07:57)
[2021-09-20] MEDS: buPROPion **XL** TABLET 150MG (WELLBUTRIN XL) PO SCH (07:57)
[2021-09-20] MEDS: LORATADINE 10 MG TAB PO SCH (07:57)
[2021-09-20] MEDS: NICOTINE 7 MG/24 HR TRANSDERMAL TD SCH (07:57)
[2021-09-20] MEDS ORDERED: HALOPERIDOL DECANOATE 100 MG/ML VIAL (J1631) IM ONE (12:05)
[2021-09-20] MEDS ORDERED: LEXA5TAB13 PO (12:59)
[2021-09-20] MEDS ORDERED: BUPR150T12 PO (12:59)
[2021-09-20] MEDS ORDERED: PRAZ5CAP PO (12:59)
[2021-09-20] MEDS ORDERED: BENZ0.5T23 PO (12:59)
[2021-09-20] MEDS ORDERED: QUET200T2 PO (12:59)
[2021-09-20] MEDS ORDERED: SENN-80 PO (12:59)
[2021-09-20] MEDS ORDERED: PROP10TA56 PO (12:59)
[2021-09-20] MEDS ORDERED: NICO1KIT TOP (12:59)
[2021-09-20] MEDS ORDERED: TRAZ-252 PO (12:59)
[2021-09-20] MEDS ORDERED: HALO5TAB33 PO (12:59)
[2021-09-20] MEDS ORDERED: HALD100I2 IM (12:59)
[2021-09-20] MEDS ORDERED: VITA100093 PO (12:59)
[2021-09-20] MEDS ORDERED: LORA1TAB4 PO (12:59)
[2021-09-20] MEDS: LORazepam 1 MG TAB PO PRN (13:30)
[2021-09-22 07:09] LABS: HEPATITIS C QUANTITATION HCV Not Detected IU/mL (.); HSV-1 DNA Negative (Negative); HSV-2 DNA Negative (Negative)
== END 2021-09-20 14:00 | disposition home or self-care (01) | DRG 750 ==
LOC: M ED 13:46 → M ED INP 20:15 → M PSY 20:56
PROVIDERS: ADMIT Psychiatry & Neurology Psychiatry; ATTEND Psychiatry & Neurology Psychiatry
DX: F20.9 Schizophrenia, unspecified (principal); F12.90 Cannabis use, unspecified, uncomplicated; F79 Unspecified intellectual disabilities; F17.210 Nicotine dependence, cigarettes, uncomplicated; F60.89 Other specific personality disorders; R45.851 Suicidal ideations; R45.850 Homicidal ideations; F43.10 Post-traumatic stress disorder, unspecified; Z79.899 Other long term (current) drug therapy; Z88.8 Allergy status to other drugs, medicaments and biological substances; K59.00 Constipation, unspecified

== ENCOUNTER 2021-09-29 10:56 | Inpatient (IN) | payer MEDICAID ==
[~2021-09-29] VITALS: Ht 157.5 cm; Wt 54.5 kg
[~2021-09-29 10:56] MED LIST changes: +HALD100I2 IM; +LORA-930 PO; +LORA1TAB4 PO; +NICO1KIT TOP; +PRAZ5CAP PO
[2021-09-29 11:44] LABS: HEMATOCRIT 40.8 % (36.0-47.0); HEMOGLOBIN 13.7 g/dl (12.0-15.5); MEAN CORPUSCULAR HGB CONC 33.6 g/dl (32.0-36.5); MEAN CORPUSCULAR VOLUME 86.4 fl (80.0-96.0); PLATELET COUNT, AUTOMATED 227 10^3/uL (150-450); RED BLOOD COUNT 4.72 10^6/uL (4.00-5.40)
[2021-09-29 12:21] LABS: RSV AMPLIFICATION NEGATIVE (NEGATIVE)
[2021-09-29 12:22] LABS: ACETAMINOPHEN LEVEL < 2.0 UG/ML (10.0-30.0); ALBUMIN 3.6 GM/DL (3.2-5.2); ALT/SGPT 13 U/L (12-78); BILIRUBIN,DIRECT < 0.1 MG/DL (0.0-0.2); BILIRUBIN,TOTAL 0.3 MG/DL (0.2-1.0); BLOOD UREA NITROGEN 12 MG/DL (7-18); CALCIUM LEVEL 9.5 MG/DL (8.5-10.1); CARBON DIOXIDE LEVEL 23 MEQ/L (21-32); CHLORIDE LEVEL 107 MEQ/L (98-107); CREATININE FOR GFR 0.89 MG/DL (0.55-1.30); ETHYL ALCOHOL (ETHANOL) < 0.003 % (0.000-0.010); GLOMERULAR FILTRATION RATE > 60.0 (>60); GLUCOSE, FASTING 108 MG/DL (70-100); POTASSIUM SERUM 4.3 MEQ/L (3.5-5.1); SALICYLATE LEVEL < 1.7 MG/DL (5.0-30.0); SODIUM LEVEL 138 MEQ/L (136-145); THYROID STIMULATING HORMONE 0.559 uIU/ML (0.358-3.740)
[2021-09-29 12:23] LABS: HCG, SERUM QUALITATIVE NEGATIVE (NEGATIVE)
[2021-09-29 13:02] LABS: AMPHETAMINES LEVEL URINE NEGATIVE (NEGATIVE); BARBITURATES URINE NEGATIVE (NEGATIVE); BENZODIAZEPINES URINE NEGATIVE (NEGATIVE); CANNABINOIDS URINE NEGATIVE (NEGATIVE); COCAINE METABOLITE URINE NEGATIVE (NEGATIVE); METHADONE URINE NEGATIVE (NEGATIVE); OPIATES URINE NEGATIVE (NEGATIVE); PHENCYCLIDINE URINE NEGATIVE (NEGATIVE)
[2021-09-29 13:59] LABS: HIV 1&2 SCREEN CENTAUR NEGATIVE (NEGATIVE)
[2021-09-29 14:16] LABS: GC DNA AMPLIFICATION NEGATIVE (NEGATIVE)
[2021-09-29] MEDS ORDERED: MOM 30ML SUSPENSION UDC PO PRN (15:30)
[2021-09-29] MEDS ORDERED: traZODone 50 MG TAB PO PRN (15:30)
[2021-09-29] MEDS ORDERED: MAALOX 30 ML SUSP *UDC PO PRN (15:30)
[2021-09-29] MEDS ORDERED: HALO5TAB33 PO (18:24)
[2021-09-29] MEDS ORDERED: SENN-80 PO (18:24)
[2021-09-29] MEDS ORDERED: VITA100093 PO (18:24)
[2021-09-29] MEDS ORDERED: QUET200T2 PO (18:24)
[2021-09-29] MEDS ORDERED: HALD100I2 IM (18:24)
[2021-09-29] MEDS ORDERED: BUPR150T12 PO (18:24)
[2021-09-29] MEDS ORDERED: PRAZ5CAP PO (18:24)
[2021-09-29] MEDS ORDERED: LEXA5TAB13 PO (18:24)
[2021-09-29] MEDS ORDERED: BENZ0.5T23 PO (18:24)
[2021-09-29] MEDS ORDERED: LORA-930 PO (18:24)
[2021-09-29] MEDS ORDERED: TRAZ-252 PO (18:24)
[2021-09-29] MEDS ORDERED: PROP10TA56 PO (18:24)
[2021-09-29] MEDS ORDERED: LORA1TAB4 PO (18:24)
[2021-09-29] MEDS ORDERED: HOME MED LIST COMPLETE! XX SCH (18:25)
[2021-09-29 21:48] VITALS: BP 138/86
[2021-09-30] MEDS: LORazepam 1 MG TAB PO PRN ×2 (02:29→09:30)
[2021-09-30] MEDS: diphenhydrAMINE 25MG CAP PO PRN ×2 (02:29→21:12)
[2021-09-30] MEDS: IBUPROFEN 400MG TAB PO PRN (09:29)
[2021-09-30] MEDS ORDERED: traZODone 100 MG TAB PO PRN (15:10)
[2021-09-30] MEDS: VENLAFAXINE **XR** 75MG CAPSULE PO SCH (16:21)
[2021-09-30 18:00] VITALS: BP 139/78
[2021-09-30] MEDS: PRAZOSIN 1 MG CAP PO SCH (19:54)
[2021-09-30] MEDS ORDERED: ARIPiprazole 10 MG TAB PO SCH (21:00)
[2021-10-01 07:11] VITALS: BP 121/59
[2021-10-01] MEDS: VENLAFAXINE **XR** 75MG CAPSULE PO SCH (07:41)
[2021-10-01] MEDS ORDERED: traZODone 50 MG TAB PO PRN (11:10)
[2021-10-01] MEDS: LORATADINE 10 MG TAB PO SCH (11:28)
[2021-10-01] MEDS ORDERED: SENNA 8.6 MG TAB (SENOKOT) PO PRN (16:25)
[2021-10-01] MEDS: IBUPROFEN 400MG TAB PO PRN (19:17)
[2021-10-01] MEDS: DOCUSATE SODIUM 100MG CAPSULE PO SCH (20:00)
[2021-10-01] MEDS: PRAZOSIN 1 MG CAP PO SCH (20:01)
[2021-10-02] MEDS: CALCIUM CARBONATE 500 MG CHEW U/D PO PRN (00:23)
[2021-10-02 06:15] VITALS: BP 129/58
[2021-10-02] MEDS: LORATADINE 10 MG TAB PO SCH (07:50)
[2021-10-02] MEDS: VENLAFAXINE **XR** 75MG CAPSULE PO SCH (07:50)
[2021-10-02] MEDS: DOCUSATE SODIUM 100MG CAPSULE PO SCH ×2 (07:50→20:05)
[2021-10-02 16:14] VITALS: BP 115/58
[2021-10-02 16:16] VITALS: BP 142/66
[2021-10-02] MEDS: IBUPROFEN 400MG TAB PO PRN (17:04)
[2021-10-02] MEDS: diphenhydrAMINE 25MG CAP PO PRN (20:04)
[2021-10-02] MEDS: traZODone 100 MG TAB PO PRN (20:05)
[2021-10-02] MEDS: PRAZOSIN 1 MG CAP PO SCH (20:05)
[2021-10-03 06:19] VITALS: BP 107/55
[2021-10-03] MEDS: VENLAFAXINE **XR** 75MG CAPSULE PO SCH (08:15)
[2021-10-03] MEDS: LORATADINE 10 MG TAB PO SCH (08:15)
[2021-10-03] MEDS: DOCUSATE SODIUM 100MG CAPSULE PO SCH ×2 (08:15→21:14)
[2021-10-03] MEDS: IBUPROFEN 400MG TAB PO PRN (10:54)
[2021-10-03] MEDS: CALCIUM CARBONATE 500 MG CHEW U/D PO PRN ×2 (13:42→22:09)
[2021-10-03] MEDS: LORazepam 1 MG TAB PO PRN (13:43)
[2021-10-03 16:26] VITALS: BP 120/61
[2021-10-03 21:14] VITALS: BP 120/61
[2021-10-03] MEDS: PRAZOSIN 1 MG CAP PO SCH (21:14)
[2021-10-03] MEDS: diphenhydrAMINE 25MG CAP PO PRN (21:14)
[2021-10-03] MEDS: traZODone 100 MG TAB PO PRN (21:14)
[2021-10-04 06:40] VITALS: BP 118/53
[2021-10-04] MEDS ORDERED: MINI1CAP PO (08:17)
[2021-10-04] MEDS ORDERED: TRAZ-257 PO (08:17)
[2021-10-04] MEDS ORDERED: VENL75CA47 PO (08:17)
[2021-10-04] MEDS ORDERED: ABIL1TAB11 PO (08:17)
[2021-10-04] MEDS ORDERED: COLA100C5 PO (08:17)
[2021-10-04] MEDS: VENLAFAXINE **XR** 75MG CAPSULE PO SCH (08:59)
[2021-10-04] MEDS: DOCUSATE SODIUM 100MG CAPSULE PO SCH (08:59)
[2021-10-04] MEDS: LORATADINE 10 MG TAB PO SCH (08:59)
== END 2021-10-04 11:45 | disposition home or self-care (01) | DRG 750 ==
LOC: M ED 10:56 → M ED INP 15:28 → M PSY 21:44
PROVIDERS: ADMIT Psychiatry & Neurology Psychiatry; ATTEND Psychiatry & Neurology Psychiatry
DX: F20.9 Schizophrenia, unspecified (principal); F79 Unspecified intellectual disabilities; R45.851 Suicidal ideations; F43.10 Post-traumatic stress disorder, unspecified; Z79.899 Other long term (current) drug therapy; Z88.8 Allergy status to other drugs, medicaments and biological substances; F41.9 Anxiety disorder, unspecified; F12.90 Cannabis use, unspecified, uncomplicated; J45.909 Unspecified asthma, uncomplicated; F17.200 Nicotine dependence, unspecified, uncomplicated; K21.9 Gastro-esophageal reflux disease without esophagitis

== ENCOUNTER 2021-10-06 15:02 | Inpatient (IN) | payer MEDICAID ==
[~2021-10-06] VITALS: Ht 157.5 cm; Wt 54.5 kg
[~2021-10-06 15:02] MED LIST changes: +ABIL1TAB11 PO; +COLA100C5 PO; +MINI1CAP PO; +TRAZ-257 PO; +VENL75CA47 PO
[2021-10-06 16:32] LABS: HEMATOCRIT 40.9 % (36.0-47.0); HEMOGLOBIN 13.6 g/dl (12.0-15.5); MEAN CORPUSCULAR HEMOGLOBIN 29.1 pg (27.0-33.0); MEAN CORPUSCULAR HGB CONC 33.3 g/dl (32.0-36.5); MEAN CORPUSCULAR VOLUME 87.4 fl (80.0-96.0); PLATELET COUNT, AUTOMATED 278 10^3/uL (150-450); RED BLOOD COUNT 4.68 10^6/uL (4.00-5.40); WHITE BLOOD COUNT 13.6 10^3/uL (4.0-10.0)
[2021-10-06 16:48] LABS: AMPHETAMINES LEVEL URINE NEGATIVE (NEGATIVE); BARBITURATES URINE NEGATIVE (NEGATIVE); BENZODIAZEPINES URINE NEGATIVE (NEGATIVE); CANNABINOIDS URINE NEGATIVE (NEGATIVE); COCAINE METABOLITE URINE NEGATIVE (NEGATIVE); HCG, SERUM QUALITATIVE NEGATIVE (NEGATIVE); METHADONE URINE NEGATIVE (NEGATIVE); OPIATES URINE NEGATIVE (NEGATIVE); PHENCYCLIDINE URINE NEGATIVE (NEGATIVE)
[2021-10-06 16:57] LABS: RSV AMPLIFICATION NEGATIVE (NEGATIVE)
[2021-10-06 16:58] LABS: ALBUMIN 3.9 GM/DL (3.2-5.2); ALT/SGPT 9 U/L (12-78); BILIRUBIN,DIRECT < 0.1 MG/DL (0.0-0.2); BILIRUBIN,TOTAL 0.2 MG/DL (0.2-1.0); BLOOD UREA NITROGEN 8 MG/DL (7-18); CALCIUM LEVEL 9.8 MG/DL (8.5-10.1); CARBON DIOXIDE LEVEL 27 MEQ/L (21-32); CHLORIDE LEVEL 107 MEQ/L (98-107); CREATININE FOR GFR 0.78 MG/DL (0.55-1.30); ETHYL ALCOHOL (ETHANOL) 0.007 % (0.000-0.010); GLOMERULAR FILTRATION RATE > 60.0 (>60); GLUCOSE, FASTING 89 MG/DL (70-100); POTASSIUM SERUM 4.2 MEQ/L (3.5-5.1); SALICYLATE LEVEL < 1.7 MG/DL (5.0-30.0); SODIUM LEVEL 141 MEQ/L (136-145)
[2021-10-06 18:16] LABS: ACETAMINOPHEN LEVEL < 2.0 UG/ML (0.0-30.0)
[2021-10-06] MEDS ORDERED: ARIP1TAB10 PO (19:32)
[2021-10-06] MEDS ORDERED: TRAZ-189 PO (19:32)
[2021-10-06] MEDS ORDERED: COLA100C5 PO (19:32)
[2021-10-06] MEDS ORDERED: PRAZ1CAP PO (19:32)
[2021-10-06] MEDS ORDERED: VENL75CA2 PO (19:32)
[2021-10-06] MEDS ORDERED: HOME MED LIST COMPLETE! XX SCH (19:35)
[2021-10-06] MEDS ORDERED: BACITRACIN OINTMENT 30GM TUBE TOP ONE (22:30)
[2021-10-07] MEDS ORDERED: traZODone 100 MG TAB PO ONE (00:10)
[2021-10-07] MEDS: VITAMIN D 1,000 INTERNATIONAL UNITS TABLET PO SCH (11:05)
[2021-10-07] MEDS: LORATADINE 10 MG TAB PO SCH (11:05)
[2021-10-07] MEDS: VENLAFAXINE **XR** 75MG CAPSULE PO SCH (11:05)
[2021-10-07] MEDS ORDERED: LORazepam 2 MG TAB PO STA (13:22)
[2021-10-07] MEDS ORDERED: ARIPiprazole 15 MG TAB (AbiLIFY) PO SCH (21:00)
[2021-10-07] MEDS ORDERED: traZODone 100 MG TAB PO SCH (21:00)
[2021-10-07] MEDS ORDERED: PRAZOSIN 1 MG CAP PO SCH (21:00)
[2021-10-07] MEDS ORDERED: LORazepam 1 MG TAB PO STA (23:50)
[2021-10-08] MEDS: VITAMIN D 1,000 INTERNATIONAL UNITS TABLET PO SCH (11:33)
[2021-10-08] MEDS: VENLAFAXINE **XR** 75MG CAPSULE PO SCH (11:33)
[2021-10-08] MEDS: LORATADINE 10 MG TAB PO SCH (11:33)
[2021-10-08 12:17] VITALS: BP 167/97
[2021-10-08 12:30] VITALS: BP 127/64
[2021-10-08] MEDS ORDERED: SENNA 8.6 MG TAB (SENOKOT) PO PRN (16:40)
[2021-10-08] MEDS: DOCUSATE SODIUM 100MG CAPSULE PO SCH (20:13)
[2021-10-08] MEDS: ARIPiprazole 15 MG TAB (AbiLIFY) PO SCH (20:14)
[2021-10-08] MEDS: PRAZOSIN 1 MG CAP PO SCH (20:14)
[2021-10-08] MEDS ORDERED: traZODone 100 MG TAB PO SCH (21:00)
[2021-10-08] MEDS: FIORICET TAB PO PRN (22:02)
[2021-10-09] MEDS: LORazepam 1 MG TAB PO PRN (01:47)
[2021-10-09 07:13] VITALS: BP 145/92
[2021-10-09] MEDS: VENLAFAXINE **XR** 75MG CAPSULE PO SCH (09:46)
[2021-10-09] MEDS: LORATADINE 10 MG TAB PO SCH (09:46)
[2021-10-09] MEDS: DOCUSATE SODIUM 100MG CAPSULE PO SCH ×2 (09:46→20:02)
[2021-10-09] MEDS: VITAMIN D 1,000 INTERNATIONAL UNITS TABLET PO SCH (09:46)
[2021-10-09 18:00] VITALS: BP 136/86
[2021-10-09] MEDS: ARIPiprazole 15 MG TAB (AbiLIFY) PO SCH (20:02)
[2021-10-09] MEDS: traZODone 50 MG TAB PO PRN (20:02)
[2021-10-09] MEDS: PRAZOSIN 1 MG CAP PO SCH (20:02)
[2021-10-10 06:00] VITALS: BP 123/65
[2021-10-10] MEDS: LORATADINE 10 MG TAB PO SCH (08:08)
[2021-10-10] MEDS: VITAMIN D 1,000 INTERNATIONAL UNITS TABLET PO SCH (08:09)
[2021-10-10] MEDS: DOCUSATE SODIUM 100MG CAPSULE PO SCH ×2 (08:09→20:01)
[2021-10-10] MEDS: VENLAFAXINE **XR** 75MG CAPSULE PO SCH (08:09)
[2021-10-10 19:03] VITALS: BP 138/90
[2021-10-10] MEDS: traZODone 50 MG TAB PO PRN (20:01)
[2021-10-10] MEDS: PRAZOSIN 1 MG CAP PO SCH (20:01)
[2021-10-10] MEDS ORDERED: ARIPiprazole 15 MG TAB (AbiLIFY) PO SCH (21:00)
[2021-10-11] MEDS: LORazepam 1 MG TAB PO PRN ×2 (00:17→17:20)
[2021-10-11 06:00] VITALS: BP 143/73
[2021-10-11] MEDS: VITAMIN D 1,000 INTERNATIONAL UNITS TABLET PO SCH (10:13)
[2021-10-11] MEDS: DOCUSATE SODIUM 100MG CAPSULE PO SCH ×2 (10:13→20:06)
[2021-10-11] MEDS: VENLAFAXINE **XR** 75MG CAPSULE PO SCH (10:14)
[2021-10-11] MEDS: LORATADINE 10 MG TAB PO SCH (10:15)
[2021-10-11 18:05] VITALS: BP 146/84
[2021-10-11] MEDS: PRAZOSIN 1 MG CAP PO SCH (20:06)
[2021-10-11] MEDS: traZODone 50 MG TAB PO PRN (20:06)
[2021-10-11] MEDS: ARIPiprazole 10 MG TAB PO SCH (20:06)
[2021-10-12 06:57] VITALS: BP 96/55
[2021-10-12] MEDS: DOCUSATE SODIUM 100MG CAPSULE PO SCH ×2 (08:20→20:01)
[2021-10-12] MEDS: VENLAFAXINE **XR** 75MG CAPSULE PO SCH (08:20)
[2021-10-12] MEDS: LORATADINE 10 MG TAB PO SCH (08:20)
[2021-10-12] MEDS: VITAMIN D 1,000 INTERNATIONAL UNITS TABLET PO SCH (08:20)
[2021-10-12 18:10] VITALS: BP 154/80
[2021-10-12] MEDS: MIRTAZAPINE 7.5MG PER 1/2 TABLET PO SCH (20:01)
[2021-10-12] MEDS: traZODone 50 MG TAB PO PRN (20:02)
[2021-10-12] MEDS: PRAZOSIN 1 MG CAP PO SCH (20:02)
[2021-10-12] MEDS: ARIPiprazole 10 MG TAB PO SCH (20:02)
[2021-10-13 06:29] VITALS: BP 129/73
[2021-10-13] MEDS: LORATADINE 10 MG TAB PO SCH (09:19)
[2021-10-13] MEDS: VENLAFAXINE **XR** 75MG CAPSULE PO SCH (09:19)
[2021-10-13] MEDS: VITAMIN D 1,000 INTERNATIONAL UNITS TABLET PO SCH (09:19)
[2021-10-13] MEDS: DOCUSATE SODIUM 100MG CAPSULE PO SCH ×2 (09:19→20:03)
[2021-10-13 13:51] LABS: BASO # 0.1 10^3/uL (0.0-0.2); BASO % 0.6 % (0.0-1.0); EOS # 0.3 10^3/uL (0.0-0.5); HEMATOCRIT 39.2 % (36.0-47.0); HEMOGLOBIN 13.1 g/dl (12.0-15.5); LYMPH # 2.3 10^3/uL (1.5-5.0); LYMPH % 29.1 % (24.0-44.0); MEAN CORPUSCULAR HEMOGLOBIN 29.4 pg (27.0-33.0); MEAN CORPUSCULAR HGB CONC 33.4 g/dl (32.0-36.5); MEAN CORPUSCULAR VOLUME 87.9 fl (80.0-96.0); MONO # 0.5 10^3/uL (0.0-0.8); MONO % 6.7 % (2.0-8.0); NEUTROPHILS # 4.7 10^3/uL (1.5-8.5); NEUTROPHILS % 59.1 % (36.0-66.0); PLATELET COUNT, AUTOMATED 263 10^3/uL (150-450); RED BLOOD COUNT 4.46 10^6/uL (4.00-5.40); WHITE BLOOD COUNT 7.9 10^3/uL (4.0-10.0)
[2021-10-13] MEDS: CEFDINIR 300 MG CAP (OMNICEF) PO SCH (16:32)
[2021-10-13 18:00] VITALS: BP 130/78
[2021-10-13] MEDS: MIRTAZAPINE 7.5MG PER 1/2 TABLET PO SCH (20:02)
[2021-10-13] MEDS: ARIPiprazole 10 MG TAB PO SCH (20:03)
[2021-10-13] MEDS: PRAZOSIN 1 MG CAP PO SCH (20:03)
[2021-10-13] MEDS: traZODone 50 MG TAB PO PRN (20:03)
[2021-10-13] MEDS: FIORICET TAB PO PRN (20:57)
[2021-10-13] MEDS: LORazepam 1 MG TAB PO PRN (23:10)
[2021-10-14 07:09] VITALS: BP 126/60
[2021-10-14] MEDS: DOCUSATE SODIUM 100MG CAPSULE PO SCH ×2 (08:04→20:03)
[2021-10-14] MEDS: CEFDINIR 300 MG CAP (OMNICEF) PO SCH ×2 (08:04→20:02)
[2021-10-14] MEDS: VITAMIN D 1,000 INTERNATIONAL UNITS TABLET PO SCH (08:04)
[2021-10-14] MEDS: LORATADINE 10 MG TAB PO SCH (08:05)
[2021-10-14] MEDS: VENLAFAXINE **XR** 75MG CAPSULE PO SCH (08:05)
[2021-10-14] MEDS: LORazepam 1 MG TAB PO PRN (17:09)
[2021-10-14 18:08] VITALS: BP 144/73
[2021-10-14] MEDS: traZODone 50 MG TAB PO PRN (20:02)
[2021-10-14] MEDS: ARIPiprazole 10 MG TAB PO SCH (20:03)
[2021-10-14] MEDS: PRAZOSIN 1 MG CAP PO SCH (20:03)
[2021-10-14] MEDS: MIRTAZAPINE 7.5MG PER 1/2 TABLET PO SCH (20:03)
[2021-10-14] MEDS ORDERED: OLANZapine ORAL DISINTEGRATING TAB 5MG PO ONE (21:00)
[2021-10-15 06:00] VITALS: BP 104/58
[2021-10-15] MEDS: CEFDINIR 300 MG CAP (OMNICEF) PO SCH ×2 (08:26→20:02)
[2021-10-15] MEDS: VITAMIN D 1,000 INTERNATIONAL UNITS TABLET PO SCH (08:26)
[2021-10-15] MEDS: VENLAFAXINE **XR** 75MG CAPSULE PO SCH (08:26)
[2021-10-15] MEDS: LORATADINE 10 MG TAB PO SCH (08:26)
[2021-10-15] MEDS: DOCUSATE SODIUM 100MG CAPSULE PO SCH ×2 (08:26→20:02)
[2021-10-15 15:43] VITALS: BP 124/82
[2021-10-15] MEDS: LORazepam 1 MG TAB PO PRN (17:30)
[2021-10-15] MEDS: ARIPiprazole 10 MG TAB PO SCH (20:02)
[2021-10-15] MEDS: MIRTAZAPINE 7.5MG PER 1/2 TABLET PO SCH (20:02)
[2021-10-15] MEDS: PRAZOSIN 1 MG CAP PO SCH (20:02)
[2021-10-15] MEDS: traZODone 50 MG TAB PO PRN (20:04)
[2021-10-16 06:45] VITALS: BP 118/58
[2021-10-16] MEDS: DOCUSATE SODIUM 100MG CAPSULE PO SCH ×2 (08:01→20:33)
[2021-10-16] MEDS: VITAMIN D 1,000 INTERNATIONAL UNITS TABLET PO SCH (08:01)
[2021-10-16] MEDS: LORATADINE 10 MG TAB PO SCH (08:01)
[2021-10-16] MEDS: VENLAFAXINE **XR** 75MG CAPSULE PO SCH (08:01)
[2021-10-16] MEDS: CEFDINIR 300 MG CAP (OMNICEF) PO SCH ×2 (08:01→20:33)
[2021-10-16] MEDS: LORazepam 1 MG TAB PO PRN (14:30)
[2021-10-16 18:28] VITALS: BP 131/70
[2021-10-16 20:33] VITALS: BP 131/70
[2021-10-16] MEDS: PRAZOSIN 1 MG CAP PO SCH (20:33)
[2021-10-16] MEDS: ARIPiprazole 10 MG TAB PO SCH (20:33)
[2021-10-16] MEDS: traZODone 50 MG TAB PO PRN (20:33)
[2021-10-16] MEDS: MIRTAZAPINE 7.5MG PER 1/2 TABLET PO SCH (20:33)
[2021-10-17 06:41] VITALS: BP 135/80
[2021-10-17] MEDS: CEFDINIR 300 MG CAP (OMNICEF) PO SCH (08:27)
[2021-10-17] MEDS: DOCUSATE SODIUM 100MG CAPSULE PO SCH (08:27)
[2021-10-17] MEDS: VITAMIN D 1,000 INTERNATIONAL UNITS TABLET PO SCH (08:27)
[2021-10-17] MEDS: LORATADINE 10 MG TAB PO SCH (08:27)
[2021-10-17] MEDS: VENLAFAXINE **XR** 75MG CAPSULE PO SCH (08:27)
[2021-10-17] MEDS ORDERED: TRAZ-252 PO (08:55)
[2021-10-17] MEDS ORDERED: ABIL10TA9 PO (08:55)
[2021-10-17] MEDS ORDERED: MIRT-10 PO (08:55)
[2021-10-17] MEDS ORDERED: CEFD300CAP PO (08:55)
[2021-10-17] MEDS ORDERED: MIRT1TAB PO (09:00)
[2021-10-17] MEDS: LORazepam 1 MG TAB PO PRN (12:27)
== END 2021-10-17 13:10 | disposition home or self-care (01) | DRG 750 ==
LOC: M ED 15:02 → M ED INP 10-08 09:58 → M PSY 10-08 12:09
PROVIDERS: ADMIT Psychiatry & Neurology Psychiatry; ATTEND Psychiatry & Neurology Psychiatry
DX: F20.9 Schizophrenia, unspecified (principal); R45.850 Homicidal ideations; R45.851 Suicidal ideations; F43.10 Post-traumatic stress disorder, unspecified; Z88.8 Allergy status to other drugs, medicaments and biological substances; Z79.899 Other long term (current) drug therapy; F41.9 Anxiety disorder, unspecified; J45.909 Unspecified asthma, uncomplicated; F17.200 Nicotine dependence, unspecified, uncomplicated; F12.90 Cannabis use, unspecified, uncomplicated; K21.9 Gastro-esophageal reflux disease without esophagitis; F32.A Depression, unspecified; D72.829 Elevated white blood cell count, unspecified

== ENCOUNTER 2021-10-23 13:11 | Inpatient (IN) | payer MEDICAID ==
[~2021-10-23] VITALS: Ht 157.5 cm; Wt 76.2 kg
[~2021-10-23 13:11] MED LIST changes: +ABIL10TA9 PO; +ARIP1TAB10 PO; +CEFD300CAP PO; +MIRT-10 PO; +MIRT1TAB PO; +TRAZ-189 PO; +VENL75CA2 PO
[2021-10-23 13:54] LABS: HEMATOCRIT 39.3 % (36.0-47.0); MEAN CORPUSCULAR HEMOGLOBIN 28.9 pg (27.0-33.0); MEAN CORPUSCULAR HGB CONC 33.1 g/dl (32.0-36.5); MEAN CORPUSCULAR VOLUME 87.3 fl (80.0-96.0); PLATELET COUNT, AUTOMATED 271 10^3/uL (150-450); WHITE BLOOD COUNT 8.2 10^3/uL (4.0-10.0)
[2021-10-23 14:32] LABS: HCG, SERUM QUALITATIVE NEGATIVE (NEGATIVE)
[2021-10-23 14:33] LABS: RSV AMPLIFICATION NEGATIVE (NEGATIVE)
[2021-10-23] MEDS ORDERED: LORazepam 1 MG TAB PO ONE ×2 (15:00→23:05)
[2021-10-23 15:01] LABS: ACETAMINOPHEN LEVEL < 2.0 UG/ML (10.0-30.0); ALBUMIN 3.6 GM/DL (3.2-5.2); ALT/SGPT 12 U/L (12-78); BILIRUBIN,DIRECT < 0.1 MG/DL (0.0-0.2); BILIRUBIN,TOTAL 0.2 MG/DL (0.2-1.0); BLOOD UREA NITROGEN 7 MG/DL (7-18); CALCIUM LEVEL 9.1 MG/DL (8.5-10.1); CARBON DIOXIDE LEVEL 24 MEQ/L (21-32); CHLORIDE LEVEL 110 MEQ/L (98-107); CREATININE FOR GFR 0.63 MG/DL (0.55-1.30); ETHYL ALCOHOL (ETHANOL) < 0.003 % (0.000-0.010); GLOMERULAR FILTRATION RATE > 60.0 (>60); GLUCOSE, FASTING 94 MG/DL (70-100); SALICYLATE LEVEL < 1.7 MG/DL (5.0-30.0); SODIUM LEVEL 138 MEQ/L (136-145); THYROID STIMULATING HORMONE 0.781 uIU/ML (0.358-3.740); TOTAL PROTEIN 6.9 GM/DL (6.4-8.2)
[2021-10-23 18:21] LABS: AMPHETAMINES LEVEL URINE NEGATIVE (NEGATIVE); BARBITURATES URINE NEGATIVE (NEGATIVE); BENZODIAZEPINES URINE NEGATIVE (NEGATIVE); CANNABINOIDS URINE NEGATIVE (NEGATIVE); COCAINE METABOLITE URINE NEGATIVE (NEGATIVE); METHADONE URINE NEGATIVE (NEGATIVE); OPIATES URINE NEGATIVE (NEGATIVE); PHENCYCLIDINE URINE NEGATIVE (NEGATIVE)
[2021-10-23] MEDS ORDERED: MIRT1TAB PO (20:51)
[2021-10-23] MEDS ORDERED: TRAZ-252 PO (20:51)
[2021-10-23] MEDS ORDERED: ARIP1TAB43 PO (20:51)
[2021-10-23] MEDS ORDERED: HOME MED LIST COMPLETE! XX SCH ×2 (20:55)
[2021-10-23] MEDS: ARIPiprazole 10 MG TAB PO SCH (21:00)
[2021-10-23] MEDS: PRAZOSIN 1 MG CAP PO SCH (21:00)
[2021-10-23] MEDS: MIRTAZAPINE 7.5MG PER 1/2 TABLET PO SCH (21:00)
[2021-10-23] MEDS ORDERED: traZODone 50 MG TAB PO ONE (23:05)
[2021-10-23] MEDS ORDERED: SENNA 8.6 MG TAB (SENOKOT) PO PRN (23:20)
[2021-10-23] MEDS ORDERED: MOM 30ML SUSPENSION UDC PO PRN (23:55)
[2021-10-23] MEDS ORDERED: MAALOX 30 ML SUSP *UDC PO PRN (23:55)
[2021-10-23] MEDS ORDERED: ACETAMINOPHEN TAB 650MG DOSE (2X325MG) PO PRN (23:55)
[2021-10-24 04:33] VITALS: BP 147/96
[2021-10-24 05:27] VITALS: BP 133/92
[2021-10-24] MEDS: VITAMIN D 1,000 INTERNATIONAL UNITS TABLET PO SCH (09:43)
[2021-10-24] MEDS: DOCUSATE SODIUM 100MG CAPSULE PO SCH ×2 (09:43→20:02)
[2021-10-24] MEDS: VENLAFAXINE **XR** 75MG CAPSULE PO SCH (09:43)
[2021-10-24] MEDS: LORATADINE 10 MG TAB PO SCH (09:43)
[2021-10-24 18:22] VITALS: BP 136/75
[2021-10-24] MEDS: ARIPiprazole 10 MG TAB PO SCH (20:01)
[2021-10-24] MEDS: traZODone 50 MG TAB PO SCH (20:02)
[2021-10-24] MEDS: PRAZOSIN 1 MG CAP PO SCH (20:02)
[2021-10-24] MEDS: MIRTAZAPINE 7.5MG PER 1/2 TABLET PO SCH (20:02)
[2021-10-25 06:44] VITALS: BP 138/83
[2021-10-25] MEDS: LORATADINE 10 MG TAB PO SCH (08:51)
[2021-10-25] MEDS: DOCUSATE SODIUM 100MG CAPSULE PO SCH ×2 (08:52→20:31)
[2021-10-25] MEDS: VENLAFAXINE **XR** 75MG CAPSULE PO SCH (08:52)
[2021-10-25] MEDS: VITAMIN D 1,000 INTERNATIONAL UNITS TABLET PO SCH (08:52)
[2021-10-25 19:20] VITALS: BP 127/89
[2021-10-25] MEDS: traZODone 50 MG TAB PO SCH (20:31)
[2021-10-25] MEDS: ARIPiprazole 10 MG TAB PO SCH (20:31)
[2021-10-25] MEDS: PRAZOSIN 1 MG CAP PO SCH (20:31)
[2021-10-25] MEDS: MIRTAZAPINE 7.5MG PER 1/2 TABLET PO SCH (20:31)
[2021-10-25] MEDS: LORazepam 1 MG TAB PO PRN (22:07)
[2021-10-26 06:32] VITALS: BP 115/65
[2021-10-26] MEDS: DOCUSATE SODIUM 100MG CAPSULE PO SCH ×2 (08:15→20:03)
[2021-10-26] MEDS: VENLAFAXINE **XR** 37.5 MG CAPSULE PO SCH (08:15)
[2021-10-26] MEDS: LORATADINE 10 MG TAB PO SCH (08:15)
[2021-10-26] MEDS: VITAMIN D 1,000 INTERNATIONAL UNITS TABLET PO SCH (08:15)
[2021-10-26] MEDS: LORazepam 1 MG TAB PO PRN (15:30)
[2021-10-26] MEDS: ARIPiprazole 10 MG TAB PO SCH (20:05)
[2021-10-26] MEDS: PRAZOSIN 1 MG CAP PO SCH (20:05)
[2021-10-26] MEDS: traZODone 50 MG TAB PO SCH (20:06)
[2021-10-26] MEDS: MIRTAZAPINE 7.5MG PER 1/2 TABLET PO SCH (20:06)
[2021-10-27 06:35] VITALS: BP 136/67
[2021-10-27] MEDS: LORATADINE 10 MG TAB PO SCH (07:58)
[2021-10-27] MEDS: VITAMIN D 1,000 INTERNATIONAL UNITS TABLET PO SCH (07:58)
[2021-10-27] MEDS: DOCUSATE SODIUM 100MG CAPSULE PO SCH ×2 (07:58→20:02)
[2021-10-27] MEDS: VENLAFAXINE **XR** 37.5 MG CAPSULE PO SCH (07:59)
[2021-10-27 17:48] VITALS: BP 146/81
[2021-10-27] MEDS: traZODone 50 MG TAB PO SCH (20:03)
[2021-10-27] MEDS: MIRTAZAPINE 7.5MG PER 1/2 TABLET PO SCH (20:03)
[2021-10-27] MEDS: PRAZOSIN 1 MG CAP PO SCH (20:03)
[2021-10-27] MEDS: ARIPiprazole 10 MG TAB PO SCH (20:03)
[2021-10-28 06:50] VITALS: BP 130/59
[2021-10-28] MEDS: DOCUSATE SODIUM 100MG CAPSULE PO SCH ×2 (08:09→20:02)
[2021-10-28] MEDS: VENLAFAXINE **XR** 37.5 MG CAPSULE PO SCH (08:10)
[2021-10-28] MEDS: VITAMIN D 1,000 INTERNATIONAL UNITS TABLET PO SCH (08:10)
[2021-10-28] MEDS: LORATADINE 10 MG TAB PO SCH (08:10)
[2021-10-28] MEDS: LORazepam 1 MG TAB PO PRN (14:02)
[2021-10-28 17:24] VITALS: BP 142/76
[2021-10-28] MEDS: PRAZOSIN 1 MG CAP PO SCH (20:02)
[2021-10-28] MEDS: traZODone 50 MG TAB PO SCH (20:03)
[2021-10-28] MEDS: MIRTAZAPINE 7.5MG PER 1/2 TABLET PO SCH (20:03)
[2021-10-28] MEDS: ARIPiprazole 10 MG TAB PO SCH (20:03)
[2021-10-29 06:39] VITALS: BP 135/79
[2021-10-29] MEDS: VITAMIN D 1,000 INTERNATIONAL UNITS TABLET PO SCH (07:58)
[2021-10-29] MEDS: DOCUSATE SODIUM 100MG CAPSULE PO SCH ×2 (07:58→20:14)
[2021-10-29] MEDS: VENLAFAXINE **XR** 37.5 MG CAPSULE PO SCH (07:58)
[2021-10-29] MEDS: LORATADINE 10 MG TAB PO SCH (07:58)
[2021-10-29 18:39] VITALS: BP 132/68
[2021-10-29 20:15] VITALS: BP 132/68
[2021-10-29] MEDS: traZODone 50 MG TAB PO SCH (20:15)
[2021-10-29] MEDS: PRAZOSIN 1 MG CAP PO SCH (20:15)
[2021-10-29] MEDS: ARIPiprazole 10 MG TAB PO SCH (20:15)
[2021-10-29] MEDS: MIRTAZAPINE 7.5MG PER 1/2 TABLET PO SCH (20:16)
[2021-10-29] MEDS: LORazepam 1 MG TAB PO PRN (23:27)
[2021-10-30 07:13] VITALS: BP 123/69
[2021-10-30] MEDS: VITAMIN D 1,000 INTERNATIONAL UNITS TABLET PO SCH (08:27)
[2021-10-30] MEDS: DOCUSATE SODIUM 100MG CAPSULE PO SCH (08:27)
[2021-10-30] MEDS: VENLAFAXINE **XR** 37.5 MG CAPSULE PO SCH (08:27)
[2021-10-30] MEDS: LORATADINE 10 MG TAB PO SCH (08:27)
[2021-10-30] MEDS ORDERED: VENL37.598 PO (09:15)
[2021-10-30] MEDS ORDERED: ABIL10TA9 PO (09:15)
[2021-10-30] MEDS: LORazepam 1 MG TAB PO PRN (10:48)
== END 2021-10-30 13:14 | disposition home or self-care (01) | DRG 750 ==
LOC: M ED 13:11 → M ED INP 23:52 → M PSY 10-24 04:35
PROVIDERS: ADMIT Student in an Organized Health Care Education/Training Program; ATTEND Psychiatry & Neurology Psychiatry
DX: F20.9 Schizophrenia, unspecified (principal); F41.9 Anxiety disorder, unspecified; F43.10 Post-traumatic stress disorder, unspecified; Z79.899 Other long term (current) drug therapy; Z88.8 Allergy status to other drugs, medicaments and biological substances; J45.909 Unspecified asthma, uncomplicated; F12.90 Cannabis use, unspecified, uncomplicated; K21.9 Gastro-esophageal reflux disease without esophagitis; F17.200 Nicotine dependence, unspecified, uncomplicated

== ENCOUNTER 2021-11-15 09:36 | Emergency (ER) | payer MEDICAID, OTHER ==
[~2021-11-15] VITALS: Ht 157.5 cm; Wt 54.5 kg
[~2021-11-15 09:36] MED LIST changes: +ARIP1TAB43 PO; +VENL37.598 PO
[2021-11-15 10:08] VITALS: BP 130/84
[2021-11-15 11:10] LABS: HEMATOCRIT 42.5 % (36.0-47.0); HEMOGLOBIN 14.1 g/dl (12.0-15.5); MEAN CORPUSCULAR HGB CONC 33.2 g/dl (32.0-36.5); MEAN CORPUSCULAR VOLUME 87.3 fl (80.0-96.0); PLATELET COUNT, AUTOMATED 312 10^3/uL (150-450); RED BLOOD COUNT 4.87 10^6/uL (4.00-5.40); WHITE BLOOD COUNT 9.6 10^3/uL (4.0-10.0)
[2021-11-15 11:44] LABS: RSV AMPLIFICATION NEGATIVE (NEGATIVE)
[2021-11-15 13:05] LABS: AMPHETAMINES LEVEL URINE NEGATIVE (NEGATIVE); BARBITURATES URINE NEGATIVE (NEGATIVE); BENZODIAZEPINES URINE NEGATIVE (NEGATIVE); CANNABINOIDS URINE NEGATIVE (NEGATIVE); COCAINE METABOLITE URINE NEGATIVE (NEGATIVE); METHADONE URINE NEGATIVE (NEGATIVE); OPIATES URINE NEGATIVE (NEGATIVE); PHENCYCLIDINE URINE NEGATIVE (NEGATIVE)
[2021-11-15 13:35] LABS: ACETAMINOPHEN LEVEL < 2.0 UG/ML (10.0-30.0); ALBUMIN 3.7 GM/DL (3.2-5.2); ALT/SGPT 13 U/L (12-78); BILIRUBIN,DIRECT < 0.1 MG/DL (0.0-0.2); BILIRUBIN,TOTAL 0.1 MG/DL (0.2-1.0); BLOOD UREA NITROGEN 8 MG/DL (7-18); CALCIUM LEVEL 9.4 MG/DL (8.5-10.1); CARBON DIOXIDE LEVEL 22 MEQ/L (21-32); CHLORIDE LEVEL 109 MEQ/L (98-107); CREATININE FOR GFR 0.94 MG/DL (0.55-1.30); ETHYL ALCOHOL (ETHANOL) < 0.003 % (0.000-0.010); GLOMERULAR FILTRATION RATE > 60.0 (>60); GLUCOSE, FASTING 118 MG/DL (70-100); HCG, SERUM QUANTITATIVE < 1.0 MIU/ML; POTASSIUM SERUM 4.1 MEQ/L (3.5-5.1); SALICYLATE LEVEL 4.5 MG/DL (5.0-30.0); SODIUM LEVEL 140 MEQ/L (136-145); TOTAL PROTEIN 7.5 GM/DL (6.4-8.2)
== END 2021-11-15 20:30 | disposition home or self-care (01) ==
LOC: M ED 09:36
DX: F43.0 Acute stress reaction (principal); J45.909 Unspecified asthma, uncomplicated; F43.10 Post-traumatic stress disorder, unspecified; F20.9 Schizophrenia, unspecified; F17.200 Nicotine dependence, unspecified, uncomplicated; Z88.8 Allergy status to other drugs, medicaments and biological substances; Z79.811 Long term (current) use of aromatase inhibitors; Z79.899 Other long term (current) drug therapy

== ENCOUNTER 2021-12-04 12:13 | Inpatient (IN) | payer OTHER ==
[~2021-12-04] VITALS: Ht 157.5 cm; Wt 76.6 kg
[2021-12-04 13:59] LABS: RSV AMPLIFICATION NEGATIVE (NEGATIVE)
[2021-12-04 14:12] LABS: AMPHETAMINES LEVEL URINE NEGATIVE (NEGATIVE); BARBITURATES URINE NEGATIVE (NEGATIVE); BENZODIAZEPINES URINE NEGATIVE (NEGATIVE); CANNABINOIDS URINE NEGATIVE (NEGATIVE); COCAINE METABOLITE URINE NEGATIVE (NEGATIVE); METHADONE URINE NEGATIVE (NEGATIVE); OPIATES URINE NEGATIVE (NEGATIVE); PHENCYCLIDINE URINE NEGATIVE (NEGATIVE)
[2021-12-04 15:41] LABS: MEAN CORPUSCULAR HEMOGLOBIN 28.8 pg (27.0-33.0); MEAN CORPUSCULAR HGB CONC 31.7 g/dl (32.0-36.5); MEAN CORPUSCULAR VOLUME 90.7 fl (80.0-96.0); PLATELET COUNT, AUTOMATED 281 10^3/uL (150-450); RED BLOOD COUNT 4.52 10^6/uL (4.00-5.40); WHITE BLOOD COUNT 12.2 10^3/uL (4.0-10.0)
[2021-12-04 16:34] LABS: ACETAMINOPHEN LEVEL < 2.0 UG/ML (10.0-30.0); ALBUMIN 3.4 GM/DL (3.2-5.2); ALT/SGPT 13 U/L (12-78); BILIRUBIN,DIRECT < 0.1 MG/DL (0.0-0.2); BLOOD UREA NITROGEN 10 MG/DL (7-18); CALCIUM LEVEL 8.9 MG/DL (8.5-10.1); CARBON DIOXIDE LEVEL 28 MEQ/L (21-32); CHLORIDE LEVEL 109 MEQ/L (98-107); CREATININE FOR GFR 0.82 MG/DL (0.55-1.30); ETHYL ALCOHOL (ETHANOL) 0.005 % (0.000-0.010); GLOMERULAR FILTRATION RATE > 60.0 (>60); GLUCOSE, FASTING 82 MG/DL (70-100); POTASSIUM SERUM 4.1 MEQ/L (3.5-5.1); SALICYLATE LEVEL 4.4 MG/DL (5.0-30.0); SODIUM LEVEL 140 MEQ/L (136-145); THYROID STIMULATING HORMONE 0.668 uIU/ML (0.358-3.740); TOTAL PROTEIN 6.5 GM/DL (6.4-8.2)
[2021-12-04 16:39] LABS: HCG, SERUM QUALITATIVE NEGATIVE (NEGATIVE)
[2021-12-04 16:41] LABS: BILIRUBIN,TOTAL < 0.1 MG/DL (0.2-1.0)
[2021-12-04] MEDS ORDERED: SENNA 8.6 MG TAB (SENOKOT) PO SCH (20:00)
[2021-12-04] MEDS ORDERED: LORATADINE 10 MG TAB PO SCH (20:00)
[2021-12-04] MEDS ORDERED: PRAZOSIN 1 MG CAP PO SCH (20:00)
[2021-12-04] MEDS ORDERED: traZODone 50 MG TAB PO SCH (20:00)
[2021-12-04] MEDS ORDERED: ARIPiprazole 10 MG TAB PO SCH (20:00)
[2021-12-04] MEDS ORDERED: DOCUSATE SODIUM 100MG CAPSULE PO SCH (20:00)
[2021-12-04] MEDS ORDERED: MIRTAZAPINE 7.5MG PER 1/2 TABLET PO SCH (20:00)
[2021-12-04] MEDS: LORATADINE 10 MG TAB PO SCH (20:18)
[2021-12-04] MEDS: ARIPiprazole 10 MG TAB PO SCH (20:18)
[2021-12-04] MEDS: DOCUSATE SODIUM 100MG CAPSULE PO SCH (20:19)
[2021-12-04] MEDS: traZODone 50 MG TAB PO SCH (20:19)
[2021-12-04] MEDS: PRAZOSIN 1 MG CAP PO SCH (20:19)
[2021-12-04] MEDS: SENNA 8.6 MG TAB (SENOKOT) PO SCH (20:20)
[2021-12-04] MEDS: MIRTAZAPINE 7.5MG PER 1/2 TABLET PO SCH (20:51)
[2021-12-04] MEDS ORDERED: VENL37.598 PO (20:59)
[2021-12-04] MEDS ORDERED: ARIP1TAB6 PO (20:59)
[2021-12-04] MEDS ORDERED: ARIP1TAB43 PO (20:59)
[2021-12-04] MEDS ORDERED: HOME MED LIST COMPLETE! XX SCH (21:00)
[2021-12-05] MEDS ORDERED: VENLAFAXINE **XR** 37.5 MG CAPSULE PO ONE (09:00)
[2021-12-05] MEDS ORDERED: DOCUSATE SODIUM 100MG CAPSULE PO ONE (09:00)
[2021-12-05] MEDS: VITAMIN D 1,000 INTERNATIONAL UNITS TABLET PO SCH (09:08)
[2021-12-05] MEDS: ARIPiprazole 10 MG TAB PO SCH (21:23)
[2021-12-05] MEDS: DOCUSATE SODIUM 100MG CAPSULE PO SCH (21:24)
[2021-12-05] MEDS: SENNA 8.6 MG TAB (SENOKOT) PO SCH (21:24)
[2021-12-05 21:26] VITALS: BP 132/74
[2021-12-05] MEDS: MIRTAZAPINE 7.5MG PER 1/2 TABLET PO SCH (21:26)
[2021-12-05] MEDS: traZODone 50 MG TAB PO SCH (21:26)
[2021-12-05] MEDS: PRAZOSIN 1 MG CAP PO SCH (21:26)
[2021-12-05] MEDS: LORATADINE 10 MG TAB PO SCH (21:26)
[2021-12-06] MEDS ORDERED: VENLAFAXINE **XR** 37.5 MG CAPSULE PO SCH (09:00)
[2021-12-06] MEDS: VITAMIN D 1,000 INTERNATIONAL UNITS TABLET PO SCH (10:27)
[2021-12-06] MEDS: DOCUSATE SODIUM 100MG CAPSULE PO SCH ×2 (10:28→21:12)
[2021-12-06] MEDS ORDERED: LORazepam 2 MG TAB PO ONE (17:35)
[2021-12-06] MEDS: MIRTAZAPINE 7.5MG PER 1/2 TABLET PO SCH (21:11)
[2021-12-06] MEDS: ARIPiprazole 10 MG TAB PO SCH (21:11)
[2021-12-06] MEDS: LORATADINE 10 MG TAB PO SCH (21:11)
[2021-12-06] MEDS: PRAZOSIN 1 MG CAP PO SCH (21:12)
[2021-12-06] MEDS: SENNA 8.6 MG TAB (SENOKOT) PO SCH (21:12)
[2021-12-06] MEDS: traZODone 50 MG TAB PO SCH (21:12)
[2021-12-07] MEDS ORDERED: LORATADINE 10 MG TAB PO ONE (09:00)
[2021-12-07 10:58] LABS: RSV AMPLIFICATION NEGATIVE (NEGATIVE)
[2021-12-07] MEDS ORDERED: SENNA 8.6 MG TAB (SENOKOT) PO PRN (12:15)
[2021-12-07] MEDS ORDERED: MAALOX 30 ML SUSP *UDC PO PRN (12:15)
[2021-12-07] MEDS ORDERED: MOM 30ML SUSPENSION UDC PO PRN (12:15)
[2021-12-07 13:25] VITALS: BP 155/70
[2021-12-07] MEDS: NICOTINE 21MG/24HR 1 EA TRANSDERMAL TD SCH (15:08)
[2021-12-07] MEDS: traZODone 50 MG TAB PO SCH (20:08)
[2021-12-07] MEDS: DOCUSATE SODIUM 100MG CAPSULE PO SCH (20:08)
[2021-12-07] MEDS: ARIPiprazole 10 MG TAB PO SCH (20:08)
[2021-12-07] MEDS: MIRTAZAPINE 7.5MG PER 1/2 TABLET PO SCH (20:08)
[2021-12-08] MEDS: LORazepam 1 MG TAB PO PRN (00:14)
[2021-12-08 06:31] VITALS: BP 138/56
[2021-12-08] MEDS: VENLAFAXINE **XR** 37.5 MG CAPSULE PO SCH (08:12)
[2021-12-08] MEDS: DOCUSATE SODIUM 100MG CAPSULE PO SCH ×2 (08:12→20:04)
[2021-12-08] MEDS: LORATADINE 10 MG TAB PO SCH (08:12)
[2021-12-08] MEDS: VITAMIN D 1,000 INTERNATIONAL UNITS TABLET PO SCH (08:12)
[2021-12-08] MEDS: NICOTINE 21MG/24HR 1 EA TRANSDERMAL TD SCH (08:13)
[2021-12-08] MEDS ORDERED: NICOTINE 14 MG/24 HR TRANSDERMAL TD SCH (09:00)
[2021-12-08] MEDS ORDERED: NICOTINE 7 MG/24 HR TRANSDERMAL TD SCH (09:00)
[2021-12-08 13:43] LABS: HEPATITIS B SURFACE ANTIBODY NEGATIVE (POSITIVE); HEPATITIS B SURFACE ANTIGEN NEGATIVE (NEGATIVE); HEPATITIS C VIRUS ABY INDEX 0.1 INDEX (<0.8); HIV 1&2 SCREEN CENTAUR NEGATIVE (NEGATIVE)
[2021-12-08 14:43] LABS: GC DNA AMPLIFICATION NEGATIVE (NEGATIVE)
[2021-12-08 19:15] VITALS: BP 133/84
[2021-12-08] MEDS: traZODone 50 MG TAB PO SCH (20:04)
[2021-12-08] MEDS: MIRTAZAPINE 7.5MG PER 1/2 TABLET PO SCH (20:04)
[2021-12-08] MEDS: ARIPiprazole 10 MG TAB PO SCH (20:04)
[2021-12-09 06:37] VITALS: BP 127/59
[2021-12-09 07:58] LABS: CHOLESTEROL RISK RATIO 3.128 (<5)
[2021-12-09] MEDS: LORATADINE 10 MG TAB PO SCH (08:09)
[2021-12-09] MEDS: VITAMIN D 1,000 INTERNATIONAL UNITS TABLET PO SCH (08:09)
[2021-12-09] MEDS: NICOTINE 21MG/24HR 1 EA TRANSDERMAL TD SCH (08:10)
[2021-12-09] MEDS: VENLAFAXINE **XR** 37.5 MG CAPSULE PO SCH (08:10)
[2021-12-09] MEDS: DOCUSATE SODIUM 100MG CAPSULE PO SCH ×2 (08:10→19:59)
[2021-12-09] MEDS: LORazepam 1 MG TAB PO PRN (19:41)
[2021-12-09] MEDS: MIRTAZAPINE 7.5MG PER 1/2 TABLET PO SCH (19:59)
[2021-12-09] MEDS: ARIPiprazole 10 MG TAB PO SCH (19:59)
[2021-12-09] MEDS: traZODone 50 MG TAB PO SCH (19:59)
[2021-12-10 06:27] VITALS: BP 134/77
[2021-12-10] MEDS: DOCUSATE SODIUM 100MG CAPSULE PO SCH ×2 (08:20→20:26)
[2021-12-10] MEDS: VENLAFAXINE **XR** 37.5 MG CAPSULE PO SCH (08:20)
[2021-12-10] MEDS: LORATADINE 10 MG TAB PO SCH (08:20)
[2021-12-10] MEDS: VITAMIN D 1,000 INTERNATIONAL UNITS TABLET PO SCH (08:20)
[2021-12-10] MEDS: NICOTINE 21MG/24HR 1 EA TRANSDERMAL TD SCH (08:21)
[2021-12-10 20:01] VITALS: BP 133/81
[2021-12-10] MEDS: ARIPiprazole 10 MG TAB PO SCH (20:26)
[2021-12-10] MEDS: traZODone 50 MG TAB PO SCH (20:26)
[2021-12-10] MEDS: MIRTAZAPINE 7.5MG PER 1/2 TABLET PO SCH (20:26)
[2021-12-11 06:32] VITALS: BP 128/70
[2021-12-11] MEDS: VENLAFAXINE **XR** 37.5 MG CAPSULE PO SCH (08:19)
[2021-12-11] MEDS: NICOTINE 21MG/24HR 1 EA TRANSDERMAL TD SCH (08:19)
[2021-12-11] MEDS: DOCUSATE SODIUM 100MG CAPSULE PO SCH ×2 (08:19→20:14)
[2021-12-11] MEDS: VITAMIN D 1,000 INTERNATIONAL UNITS TABLET PO SCH (08:19)
[2021-12-11] MEDS: LORATADINE 10 MG TAB PO SCH (08:19)
[2021-12-11 16:56] VITALS: BP 124/78
[2021-12-11 17:02] VITALS: BP 124/78
[2021-12-11] MEDS: LORazepam 1 MG TAB PO PRN (19:44)
[2021-12-11] MEDS: traZODone 50 MG TAB PO SCH (20:14)
[2021-12-11] MEDS: MIRTAZAPINE 7.5MG PER 1/2 TABLET PO SCH (20:14)
[2021-12-11] MEDS: ARIPiprazole 10 MG TAB PO SCH (20:14)
[2021-12-12 06:13] VITALS: BP 115/56
[2021-12-12] MEDS: DOCUSATE SODIUM 100MG CAPSULE PO SCH ×2 (08:16→20:56)
[2021-12-12] MEDS: LORATADINE 10 MG TAB PO SCH (08:16)
[2021-12-12] MEDS: VITAMIN D 1,000 INTERNATIONAL UNITS TABLET PO SCH (08:16)
[2021-12-12] MEDS: VENLAFAXINE **XR** 37.5 MG CAPSULE PO SCH (08:16)
[2021-12-12] MEDS: NICOTINE 21MG/24HR 1 EA TRANSDERMAL TD SCH (08:30)
[2021-12-12 17:13] VITALS: BP 132/82
[2021-12-12] MEDS: MIRTAZAPINE 7.5MG PER 1/2 TABLET PO SCH (20:55)
[2021-12-12] MEDS: traZODone 50 MG TAB PO SCH (20:56)
[2021-12-12] MEDS: ARIPiprazole 10 MG TAB PO SCH (20:56)
[2021-12-13 07:33] VITALS: BP 103/79
[2021-12-13] MEDS: NICOTINE 21MG/24HR 1 EA TRANSDERMAL TD SCH (07:53)
[2021-12-13] MEDS: DOCUSATE SODIUM 100MG CAPSULE PO SCH ×2 (07:55→20:00)
[2021-12-13] MEDS: LORATADINE 10 MG TAB PO SCH (07:55)
[2021-12-13] MEDS: VENLAFAXINE **XR** 37.5 MG CAPSULE PO SCH (07:56)
[2021-12-13] MEDS: VITAMIN D 1,000 INTERNATIONAL UNITS TABLET PO SCH (07:57)
[2021-12-13 16:33] VITALS: BP 144/70
[2021-12-13] MEDS: ARIPiprazole 10 MG TAB PO SCH (20:01)
[2021-12-13] MEDS: traZODone 50 MG TAB PO SCH (20:01)
[2021-12-13] MEDS: MIRTAZAPINE 7.5MG PER 1/2 TABLET PO SCH (20:01)
[2021-12-14 07:09] VITALS: BP 104/56
[2021-12-14] MEDS: LORATADINE 10 MG TAB PO SCH (08:30)
[2021-12-14] MEDS: DOCUSATE SODIUM 100MG CAPSULE PO SCH ×2 (08:30→20:35)
[2021-12-14] MEDS: NICOTINE 21MG/24HR 1 EA TRANSDERMAL TD SCH (08:31)
[2021-12-14] MEDS: VENLAFAXINE **XR** 37.5 MG CAPSULE PO SCH (08:31)
[2021-12-14] MEDS: VITAMIN D 1,000 INTERNATIONAL UNITS TABLET PO SCH (08:31)
[2021-12-14] MEDS ORDERED: NICOTINE POLACRILEX 2 MG GUM PO PRN (11:35)
[2021-12-14 18:28] VITALS: BP 150/88
[2021-12-14] MEDS: ARIPiprazole 10 MG TAB PO SCH (20:35)
[2021-12-14] MEDS: traZODone 50 MG TAB PO SCH (20:35)
[2021-12-14] MEDS: MIRTAZAPINE 7.5MG PER 1/2 TABLET PO SCH (20:35)
[2021-12-15 06:34] VITALS: BP 124/58
[2021-12-15] MEDS: VENLAFAXINE **XR** 37.5 MG CAPSULE PO SCH (09:20)
[2021-12-15] MEDS: VITAMIN D 1,000 INTERNATIONAL UNITS TABLET PO SCH (09:20)
[2021-12-15] MEDS: DOCUSATE SODIUM 100MG CAPSULE PO SCH ×2 (09:20→19:59)
[2021-12-15] MEDS: LORATADINE 10 MG TAB PO SCH (09:20)
[2021-12-15 16:29] VITALS: BP 131/73
[2021-12-15] MEDS: LORazepam 1 MG TAB PO PRN (17:28)
[2021-12-15] MEDS: traZODone 50 MG TAB PO SCH (19:59)
[2021-12-15] MEDS: MIRTAZAPINE 7.5MG PER 1/2 TABLET PO SCH (19:59)
[2021-12-15] MEDS: ARIPiprazole 10 MG TAB PO SCH (19:59)
[2021-12-16 06:32] VITALS: BP 110/52
[2021-12-16] MEDS: DOCUSATE SODIUM 100MG CAPSULE PO SCH ×2 (08:59→20:01)
[2021-12-16] MEDS: VENLAFAXINE **XR** 37.5 MG CAPSULE PO SCH (08:59)
[2021-12-16] MEDS: LORATADINE 10 MG TAB PO SCH (08:59)
[2021-12-16] MEDS: VITAMIN D 1,000 INTERNATIONAL UNITS TABLET PO SCH (08:59)
[2021-12-16 16:18] VITALS: BP 128/70
[2021-12-16] MEDS: MIRTAZAPINE 7.5MG PER 1/2 TABLET PO SCH (20:01)
[2021-12-16] MEDS: ARIPiprazole 10 MG TAB PO SCH (20:01)
[2021-12-16] MEDS: traZODone 50 MG TAB PO SCH (20:01)
[2021-12-17 06:16] VITALS: BP 142/74
[2021-12-17] MEDS: LORATADINE 10 MG TAB PO SCH (07:52)
[2021-12-17] MEDS: VITAMIN D 1,000 INTERNATIONAL UNITS TABLET PO SCH (07:52)
[2021-12-17] MEDS: VENLAFAXINE **XR** 37.5 MG CAPSULE PO SCH (07:52)
[2021-12-17] MEDS: DOCUSATE SODIUM 100MG CAPSULE PO SCH ×2 (07:52→20:13)
[2021-12-17 16:21] VITALS: BP 135/80
[2021-12-17] MEDS: MIRTAZAPINE 7.5MG PER 1/2 TABLET PO SCH (20:13)
[2021-12-17] MEDS: ARIPiprazole 10 MG TAB PO SCH (20:13)
[2021-12-17] MEDS: traZODone 50 MG TAB PO SCH (20:13)
[2021-12-18 06:04] VITALS: BP 138/88
[2021-12-18] MEDS: LORATADINE 10 MG TAB PO SCH (07:53)
[2021-12-18] MEDS: DOCUSATE SODIUM 100MG CAPSULE PO SCH ×2 (07:53→20:07)
[2021-12-18] MEDS: VITAMIN D 1,000 INTERNATIONAL UNITS TABLET PO SCH (07:53)
[2021-12-18] MEDS: VENLAFAXINE **XR** 37.5 MG CAPSULE PO SCH (07:53)
[2021-12-18 18:22] VITALS: BP 138/72
[2021-12-18] MEDS: ARIPiprazole 10 MG TAB PO SCH (20:07)
[2021-12-18] MEDS: MIRTAZAPINE 7.5MG PER 1/2 TABLET PO SCH (20:07)
[2021-12-18] MEDS: traZODone 50 MG TAB PO SCH (20:07)
[2021-12-19] MEDS: IBUPROFEN 400MG TAB PO PRN (01:25)
[2021-12-19 06:08] VITALS: BP 116/58
[2021-12-19] MEDS: VENLAFAXINE **XR** 37.5 MG CAPSULE PO SCH (08:10)
[2021-12-19] MEDS: DOCUSATE SODIUM 100MG CAPSULE PO SCH ×2 (08:10→20:20)
[2021-12-19] MEDS: VITAMIN D 1,000 INTERNATIONAL UNITS TABLET PO SCH (08:10)
[2021-12-19] MEDS: LORATADINE 10 MG TAB PO SCH (08:10)
[2021-12-19] MEDS ORDERED: BENZTROPINE MESYLATE 2MG/2ML VIAL IM PRN (12:50)
[2021-12-19 17:50] VITALS: BP 120/79
[2021-12-19] MEDS: traZODone 50 MG TAB PO SCH (20:20)
[2021-12-19] MEDS: ARIPiprazole 10 MG TAB PO SCH (20:20)
[2021-12-20 06:12] VITALS: BP 126/56
[2021-12-20] MEDS: DOCUSATE SODIUM 100MG CAPSULE PO SCH ×2 (08:36→20:17)
[2021-12-20] MEDS: LORATADINE 10 MG TAB PO SCH (08:37)
[2021-12-20] MEDS: VITAMIN D 1,000 INTERNATIONAL UNITS TABLET PO SCH (08:37)
[2021-12-20] MEDS: VENLAFAXINE **XR** 75MG CAPSULE PO SCH (08:37)
[2021-12-20] MEDS: ARIPiprazole 10 MG TAB PO SCH (20:17)
[2021-12-20] MEDS: traZODone 50 MG TAB PO SCH (20:17)
[2021-12-21 06:22] VITALS: BP 107/61
[2021-12-21] MEDS: LORATADINE 10 MG TAB PO SCH (08:11)
[2021-12-21] MEDS: DOCUSATE SODIUM 100MG CAPSULE PO SCH ×2 (08:11→19:54)
[2021-12-21] MEDS: VENLAFAXINE **XR** 75MG CAPSULE PO SCH (08:11)
[2021-12-21] MEDS: VITAMIN D 1,000 INTERNATIONAL UNITS TABLET PO SCH (08:11)
[2021-12-21 18:00] VITALS: BP 132/74
[2021-12-21] MEDS: ARIPiprazole 10 MG TAB PO SCH (19:54)
[2021-12-21] MEDS: traZODone 50 MG TAB PO SCH (19:54)
[2021-12-22 06:21] VITALS: BP 140/63
[2021-12-22] MEDS: LORATADINE 10 MG TAB PO SCH (08:23)
[2021-12-22] MEDS: VITAMIN D 1,000 INTERNATIONAL UNITS TABLET PO SCH (08:23)
[2021-12-22] MEDS: VENLAFAXINE **XR** 75MG CAPSULE PO SCH (08:23)
[2021-12-22] MEDS: DOCUSATE SODIUM 100MG CAPSULE PO SCH ×2 (08:24→20:26)
[2021-12-22 16:30] VITALS: BP 161/78
[2021-12-22] MEDS: ARIPiprazole 10 MG TAB PO SCH (20:26)
[2021-12-22] MEDS: traZODone 50 MG TAB PO SCH (20:26)
[2021-12-23 07:06] VITALS: BP 98/54
[2021-12-23] MEDS: LORATADINE 10 MG TAB PO SCH (09:21)
[2021-12-23] MEDS: DOCUSATE SODIUM 100MG CAPSULE PO SCH ×2 (09:21→20:15)
[2021-12-23] MEDS: VENLAFAXINE **XR** 75MG CAPSULE PO SCH (09:21)
[2021-12-23] MEDS: VITAMIN D 1,000 INTERNATIONAL UNITS TABLET PO SCH (09:21)
[2021-12-23 18:22] VITALS: BP 141/83
[2021-12-23] MEDS: ARIPiprazole 10 MG TAB PO SCH (20:16)
[2021-12-23] MEDS: traZODone 50 MG TAB PO SCH (20:16)
[2021-12-24 06:24] VITALS: BP 131/66
[2021-12-24] MEDS: LORATADINE 10 MG TAB PO SCH (07:53)
[2021-12-24] MEDS: DOCUSATE SODIUM 100MG CAPSULE PO SCH ×2 (07:53→19:51)
[2021-12-24] MEDS: VENLAFAXINE **XR** 75MG CAPSULE PO SCH (07:54)
[2021-12-24] MEDS: VITAMIN D 1,000 INTERNATIONAL UNITS TABLET PO SCH (07:54)
[2021-12-24 17:47] VITALS: BP 120/78
[2021-12-24] MEDS: traZODone 50 MG TAB PO SCH (19:52)
[2021-12-24] MEDS: ARIPiprazole 10 MG TAB PO SCH (19:52)
[2021-12-25] MEDS: VITAMIN D 1,000 INTERNATIONAL UNITS TABLET PO SCH (08:04)
[2021-12-25] MEDS: LORATADINE 10 MG TAB PO SCH (08:04)
[2021-12-25] MEDS: DOCUSATE SODIUM 100MG CAPSULE PO SCH ×2 (08:04→20:09)
[2021-12-25] MEDS: VENLAFAXINE **XR** 75MG CAPSULE PO SCH (08:04)
[2021-12-25 08:23] VITALS: BP 146/63
[2021-12-25 16:30] VITALS: BP 123/71
[2021-12-25] MEDS: traZODone 100 MG TAB PO SCH (20:09)
[2021-12-25] MEDS: ARIPiprazole 10 MG TAB PO SCH (20:09)
[2021-12-26 06:44] VITALS: BP 118/57
[2021-12-26] MEDS: DOCUSATE SODIUM 100MG CAPSULE PO SCH ×2 (08:08→20:03)
[2021-12-26] MEDS: VITAMIN D 1,000 INTERNATIONAL UNITS TABLET PO SCH (08:09)
[2021-12-26] MEDS: LORATADINE 10 MG TAB PO SCH (08:09)
[2021-12-26] MEDS: VENLAFAXINE **XR** 75MG CAPSULE PO SCH (08:09)
[2021-12-26] MEDS ORDERED: ARIPiprazole MONOHYDRATE 400 MG INJ (ABILIFY)(FREE PSY INPT ONLY) IM ONE (14:00)
[2021-12-26 16:33] VITALS: BP 122/57
[2021-12-26] MEDS: traZODone 100 MG TAB PO SCH (20:03)
[2021-12-26] MEDS: ARIPiprazole 10 MG TAB PO SCH (20:03)
[2021-12-27 06:34] VITALS: BP 138/68
[2021-12-27] MEDS: VENLAFAXINE **XR** 75MG CAPSULE PO SCH (07:47)
[2021-12-27] MEDS: LORATADINE 10 MG TAB PO SCH (07:47)
[2021-12-27] MEDS: DOCUSATE SODIUM 100MG CAPSULE PO SCH ×2 (07:47→20:28)
[2021-12-27] MEDS: VITAMIN D 1,000 INTERNATIONAL UNITS TABLET PO SCH (07:47)
[2021-12-27 16:02] VITALS: BP 134/74
[2021-12-27] MEDS: ARIPiprazole 10 MG TAB PO SCH (20:28)
[2021-12-27] MEDS: traZODone 100 MG TAB PO SCH (20:28)
[2021-12-28 06:25] VITALS: BP 134/73
[2021-12-28] MEDS: DOCUSATE SODIUM 100MG CAPSULE PO SCH ×2 (08:15→21:12)
[2021-12-28] MEDS: VITAMIN D 1,000 INTERNATIONAL UNITS TABLET PO SCH (08:15)
[2021-12-28] MEDS: VENLAFAXINE **XR** 75MG CAPSULE PO SCH (08:16)
[2021-12-28] MEDS: LORATADINE 10 MG TAB PO SCH (08:16)
[2021-12-28 18:35] VITALS: BP 131/71
[2021-12-28] MEDS: ARIPiprazole 10 MG TAB PO SCH (21:12)
[2021-12-28] MEDS: traZODone 100 MG TAB PO SCH (21:12)
[2021-12-29 07:04] VITALS: BP 136/84
[2021-12-29] MEDS: LORATADINE 10 MG TAB PO SCH (09:21)
[2021-12-29] MEDS: DOCUSATE SODIUM 100MG CAPSULE PO SCH ×2 (09:21→20:18)
[2021-12-29] MEDS: VENLAFAXINE **XR** 75MG CAPSULE PO SCH (09:21)
[2021-12-29] MEDS: VITAMIN D 1,000 INTERNATIONAL UNITS TABLET PO SCH (09:22)
[2021-12-29 16:31] VITALS: BP 135/84
[2021-12-29] MEDS: ARIPiprazole 10 MG TAB PO SCH (20:18)
[2021-12-29] MEDS: traZODone 100 MG TAB PO SCH (20:18)
[2021-12-30 06:15] VITALS: BP 124/60
[2021-12-30] MEDS: DOCUSATE SODIUM 100MG CAPSULE PO SCH ×2 (07:59→20:05)
[2021-12-30] MEDS: VENLAFAXINE **XR** 75MG CAPSULE PO SCH (07:59)
[2021-12-30] MEDS: VITAMIN D 1,000 INTERNATIONAL UNITS TABLET PO SCH (08:00)
[2021-12-30] MEDS: LORATADINE 10 MG TAB PO SCH (08:00)
[2021-12-30 16:26] VITALS: BP 136/84
[2021-12-30] MEDS: traZODone 100 MG TAB PO SCH (20:05)
[2021-12-30] MEDS: ARIPiprazole 10 MG TAB PO SCH (20:05)
[2021-12-30] MEDS ORDERED: FLUTICASONE PROP 0.05% NASAL SPRAY 16 GM (FLONASE) NARES PRN (22:35)
[2021-12-30] MEDS: diphenhydrAMINE 25MG CAP PO PRN (23:09)
[2021-12-31 06:36] VITALS: BP 117/63
[2021-12-31] MEDS: LORATADINE 10 MG TAB PO SCH (08:05)
[2021-12-31] MEDS: VITAMIN D 1,000 INTERNATIONAL UNITS TABLET PO SCH (08:05)
[2021-12-31] MEDS: DOCUSATE SODIUM 100MG CAPSULE PO SCH ×2 (08:06→20:24)
[2021-12-31] MEDS: VENLAFAXINE **XR** 75MG CAPSULE PO SCH (08:06)
[2021-12-31 16:44] VITALS: BP 132/85
[2021-12-31] MEDS: ARIPiprazole 10 MG TAB PO SCH (20:24)
[2021-12-31] MEDS: traZODone 100 MG TAB PO SCH (20:24)
[2022-01-01] MEDS: diphenhydrAMINE 25MG CAP PO PRN (00:06)
[2022-01-01 06:25] VITALS: BP 106/65
[2022-01-01] MEDS: LORATADINE 10 MG TAB PO SCH (07:50)
[2022-01-01] MEDS: VITAMIN D 1,000 INTERNATIONAL UNITS TABLET PO SCH (07:50)
[2022-01-01] MEDS: VENLAFAXINE **XR** 75MG CAPSULE PO SCH (07:50)
[2022-01-01] MEDS: DOCUSATE SODIUM 100MG CAPSULE PO SCH ×2 (07:51→20:02)
[2022-01-01 17:39] VITALS: BP 133/76
[2022-01-01] MEDS: traZODone 100 MG TAB PO SCH (20:02)
[2022-01-01] MEDS: ARIPiprazole 10 MG TAB PO SCH (20:02)
[2022-01-01] MEDS: MIRTAZAPINE 7.5MG PER 1/2 TABLET PO SCH (20:02)
[2022-01-02 06:46] VITALS: BP 129/58
[2022-01-02] MEDS: VITAMIN D 1,000 INTERNATIONAL UNITS TABLET PO SCH (09:19)
[2022-01-02] MEDS: LORATADINE 10 MG TAB PO SCH (09:19)
[2022-01-02] MEDS: VENLAFAXINE **XR** 75MG CAPSULE PO SCH (09:19)
[2022-01-02] MEDS: DOCUSATE SODIUM 100MG CAPSULE PO SCH ×2 (09:19→20:37)
[2022-01-02 18:05] VITALS: BP 154/69
[2022-01-02] MEDS: diphenhydrAMINE 25MG CAP PO PRN (19:02)
[2022-01-02] MEDS: traZODone 100 MG TAB PO SCH (20:36)
[2022-01-02] MEDS: MIRTAZAPINE 7.5MG PER 1/2 TABLET PO SCH (20:36)
[2022-01-02] MEDS: ARIPiprazole 10 MG TAB PO SCH (20:37)
[2022-01-02] MEDS ORDERED: CETIRIZINE (ZyrTEC) 10 MG TAB PO PRN (23:00)
[2022-01-03 06:44] VITALS: BP 123/60
[2022-01-03] MEDS: VENLAFAXINE **XR** 75MG CAPSULE PO SCH (08:09)
[2022-01-03] MEDS: diphenhydrAMINE 25MG CAP PO PRN ×2 (08:10→20:29)
[2022-01-03] MEDS: VITAMIN D 1,000 INTERNATIONAL UNITS TABLET PO SCH (08:10)
[2022-01-03] MEDS: DOCUSATE SODIUM 100MG CAPSULE PO SCH ×2 (08:10→20:29)
[2022-01-03] MEDS: LORATADINE 10 MG TAB PO SCH (08:11)
[2022-01-03] MEDS: guaiFENesin ER 600 MG TAB PO SCH ×2 (12:01→20:29)
[2022-01-03 18:08] VITALS: BP 136/75
[2022-01-03] MEDS: ARIPiprazole 10 MG TAB PO SCH (20:28)
[2022-01-03] MEDS: MIRTAZAPINE 7.5MG PER 1/2 TABLET PO SCH (20:28)
[2022-01-03] MEDS: IBUPROFEN 400MG TAB PO PRN (20:29)
[2022-01-03] MEDS: traZODone 100 MG TAB PO SCH (20:29)
[2022-01-04] MEDS: diphenhydrAMINE 25MG CAP PO PRN ×2 (03:52→20:56)
[2022-01-04 06:17] VITALS: BP 144/78
[2022-01-04] MEDS: LORATADINE 10 MG TAB PO SCH (08:03)
[2022-01-04] MEDS: guaiFENesin ER 600 MG TAB PO SCH ×2 (08:07→20:00)
[2022-01-04] MEDS: VITAMIN D 1,000 INTERNATIONAL UNITS TABLET PO SCH (08:08)
[2022-01-04] MEDS: DOCUSATE SODIUM 100MG CAPSULE PO SCH ×2 (08:08→20:00)
[2022-01-04] MEDS: IBUPROFEN 400MG TAB PO PRN ×2 (08:08→09:21)
[2022-01-04] MEDS: VENLAFAXINE **XR** 75MG CAPSULE PO SCH (08:08)
[2022-01-04] MEDS ORDERED: CEPACOL LOZENGE PO PRN (12:50)
[2022-01-04 18:02] VITALS: BP 140/60
[2022-01-04] MEDS: MIRTAZAPINE 7.5MG PER 1/2 TABLET PO SCH (20:01)
[2022-01-04] MEDS: ARIPiprazole 10 MG TAB PO SCH (20:01)
[2022-01-04] MEDS: traZODone 100 MG TAB PO SCH (20:01)
[2022-01-05 06:30] VITALS: BP 131/76
[2022-01-05] MEDS: LORATADINE 10 MG TAB PO SCH (09:00)
[2022-01-05] MEDS: VITAMIN D 1,000 INTERNATIONAL UNITS TABLET PO SCH (09:07)
[2022-01-05] MEDS: guaiFENesin ER 600 MG TAB PO SCH ×2 (09:07→20:11)
[2022-01-05] MEDS: DOCUSATE SODIUM 100MG CAPSULE PO SCH ×2 (09:07→20:12)
[2022-01-05] MEDS: VENLAFAXINE **XR** 75MG CAPSULE PO SCH (09:07)
[2022-01-05 18:16] VITALS: BP 132/71
[2022-01-05] MEDS: traZODone 100 MG TAB PO SCH (20:11)
[2022-01-05] MEDS: diphenhydrAMINE 25MG CAP PO PRN (20:11)
[2022-01-05] MEDS: ARIPiprazole 10 MG TAB PO SCH (20:11)
[2022-01-05] MEDS: IBUPROFEN 400MG TAB PO PRN (20:12)
[2022-01-05] MEDS: MIRTAZAPINE 7.5MG PER 1/2 TABLET PO SCH (20:13)
[2022-01-06] MEDS: diphenhydrAMINE 25MG CAP PO PRN ×2 (08:40→21:01)
[2022-01-06] MEDS: guaiFENesin ER 600 MG TAB PO SCH ×2 (08:40→21:00)
[2022-01-06] MEDS: VITAMIN D 1,000 INTERNATIONAL UNITS TABLET PO SCH (08:40)
[2022-01-06] MEDS: VENLAFAXINE **XR** 75MG CAPSULE PO SCH (08:40)
[2022-01-06] MEDS: DOCUSATE SODIUM 100MG CAPSULE PO SCH ×2 (08:40→21:00)
[2022-01-06] MEDS: LORATADINE 10 MG TAB PO SCH (08:40)
[2022-01-06 18:10] VITALS: BP 152/87
[2022-01-06] MEDS: ARIPiprazole 10 MG TAB PO SCH (21:00)
[2022-01-06] MEDS: MIRTAZAPINE 7.5MG PER 1/2 TABLET PO SCH (21:00)
[2022-01-06] MEDS: traZODone 100 MG TAB PO SCH (21:00)
[2022-01-07 06:57] VITALS: BP 121/60
[2022-01-07] MEDS: DOCUSATE SODIUM 100MG CAPSULE PO SCH ×2 (08:09→20:08)
[2022-01-07] MEDS: LORATADINE 10 MG TAB PO SCH (08:09)
[2022-01-07] MEDS: VITAMIN D 1,000 INTERNATIONAL UNITS TABLET PO SCH (08:09)
[2022-01-07] MEDS: guaiFENesin ER 600 MG TAB PO SCH ×2 (08:09→20:08)
[2022-01-07] MEDS: VENLAFAXINE **XR** 75MG CAPSULE PO SCH (08:09)
[2022-01-07 18:14] VITALS: BP 117/70
[2022-01-07] MEDS: ARIPiprazole 10 MG TAB PO SCH (20:08)
[2022-01-07] MEDS: diphenhydrAMINE 25MG CAP PO PRN (20:08)
[2022-01-07] MEDS: MIRTAZAPINE 7.5MG PER 1/2 TABLET PO SCH (20:08)
[2022-01-07] MEDS: traZODone 100 MG TAB PO SCH (20:08)
[2022-01-08 06:19] VITALS: BP 118/64
[2022-01-08] MEDS: DOCUSATE SODIUM 100MG CAPSULE PO SCH (07:57)
[2022-01-08] MEDS: guaiFENesin ER 600 MG TAB PO SCH (07:58)
[2022-01-08] MEDS: VITAMIN D 1,000 INTERNATIONAL UNITS TABLET PO SCH (07:58)
[2022-01-08] MEDS: VENLAFAXINE **XR** 75MG CAPSULE PO SCH (07:58)
[2022-01-08] MEDS: LORATADINE 10 MG TAB PO SCH (07:58)
[2022-01-08] MEDS ORDERED: PRAZ1CAP PO ×2 (08:59→11:53)
[2022-01-08] MEDS ORDERED: ARIP1TAB6 PO (08:59)
[2022-01-08] MEDS ORDERED: HALO5TAB33 PO ×2 (08:59→11:53)
[2022-01-08] MEDS ORDERED: MIRT1TAB PO ×2 (08:59→11:53)
[2022-01-08] MEDS ORDERED: NICO2GUM PO ×2 (08:59→11:53)
[2022-01-08] MEDS ORDERED: VENL75CA47 PO ×2 (08:59→11:53)
[2022-01-08] MEDS ORDERED: TRAZ-257 PO ×2 (08:59→11:53)
[2022-01-08] MEDS ORDERED: ARIP1TAB43 PO ×2 (08:59→11:53)
[2022-01-09] MEDS ORDERED: SENN-80 PO (09:16)
[2022-01-09] MEDS ORDERED: LORA-930 PO (09:16)
[2022-01-09] MEDS ORDERED: COLA100C5 PO (09:16)
[2022-01-09] MEDS ORDERED: VITA100093 PO (09:16)
== END 2022-01-08 11:47 | disposition home or self-care (01) | DRG 750 ==
LOC: M ED 12:13 → M ED INP 12-07 12:11 → M PSY 12-07 13:03
PROVIDERS: ADMIT Student in an Organized Health Care Education/Training Program; ATTEND Student in an Organized Health Care Education/Training Program
DX: F20.9 Schizophrenia, unspecified (principal); F17.210 Nicotine dependence, cigarettes, uncomplicated; F41.8 Other specified anxiety disorders; F43.10 Post-traumatic stress disorder, unspecified; F84.9 Pervasive developmental disorder, unspecified; Z91.14 Patient's other noncompliance with medication regimen; Z79.899 Other long term (current) drug therapy; Z88.8 Allergy status to other drugs, medicaments and biological substances; K21.9 Gastro-esophageal reflux disease without esophagitis; F70 Mild intellectual disabilities; J45.909 Unspecified asthma, uncomplicated; F12.90 Cannabis use, unspecified, uncomplicated; Z62.810 Personal history of physical and sexual abuse in childhood

== ENCOUNTER 2022-04-22 16:00 | Inpatient (IN) | payer OTHER ==
[~2022-04-22] VITALS: Ht 162.6 cm; Wt 81.0 kg
[~2022-04-22 16:00] MED LIST changes: +ARIP1TAB6 PO; +NICO2GUM PO
[2022-04-22] MEDS ORDERED: OLANZapine INTRAMUSCULAR 10MG VIAL IM ONE (16:30)
[2022-04-22 17:25] LABS: HEMATOCRIT 40.4 % (36.0-47.0); HEMOGLOBIN 13.4 g/dl (12.0-15.5); MEAN CORPUSCULAR HGB CONC 33.2 g/dl (32.0-36.5); MEAN CORPUSCULAR VOLUME 84.3 fl (80.0-96.0); PLATELET COUNT, AUTOMATED 271 10^3/uL (150-450); RED BLOOD COUNT 4.79 10^6/uL (4.00-5.40); WHITE BLOOD COUNT 10.6 10^3/uL (4.0-10.0)
[2022-04-22 17:38] LABS: ETHYL ALCOHOL (ETHANOL) 0.003 % (0.000-0.010)
[2022-04-22 17:39] LABS: ACETAMINOPHEN LEVEL < 2.0 UG/ML (10.0-20.0)
[2022-04-22 17:40] LABS: ALBUMIN 4.2 G/DL (3.2-5.2); ALKALINE PHOSPHATASE 88 U/L (46-116); ALT/SGPT 12 U/L (7.0-40); AST/SGOT 21 U/L (<34); BILIRUBIN,DIRECT < 0.1 MG/DL (<0.4); BILIRUBIN,TOTAL < 0.2 MG/DL (0.3-1.2); BLOOD UREA NITROGEN 16 MG/DL (9-23); CALCIUM LEVEL 10.1 MG/DL (8.5-10.1); CARBON DIOXIDE LEVEL 24 MMOL/L (20-31); CHLORIDE LEVEL 105 MMOL/L (98-107); CREATININE FOR GFR 0.73 MG/DL (0.55-1.30); GLOMERULAR FILTRATION RATE > 60.0 (>60); GLUCOSE, FASTING 104 MG/DL (60-100); POTASSIUM SERUM 4.2 MMOL/L (3.5-5.1); SALICYLATE LEVEL < 3.0 MG/DL (<30); SODIUM LEVEL 138 MMOL/L (136-145); TOTAL PROTEIN 7.6 G/DL (5.7-8.2)
[2022-04-22 17:42] LABS: THYROID STIMULATING HORMONE 0.795 uIU/ML (0.55-4.78)
[2022-04-22 17:47] LABS: HCG, SERUM QUALITATIVE NEGATIVE (NEGATIVE); RSV AMPLIFICATION NEGATIVE (NEGATIVE)
[2022-04-22] MEDS ORDERED: LORazepam 2 MG TAB PO ONE (18:20)
[2022-04-22 18:41] LABS: AMPHETAMINES LEVEL URINE NEGATIVE (NEGATIVE); BARBITURATES URINE NEGATIVE (NEGATIVE); BENZODIAZEPINES URINE NEGATIVE (NEGATIVE); COCAINE METABOLITE URINE NEGATIVE (NEGATIVE); METHADONE URINE NEGATIVE (NEGATIVE); OPIATES URINE NEGATIVE (NEGATIVE); PHENCYCLIDINE URINE NEGATIVE (NEGATIVE)
[2022-04-22 18:50] LABS: CANNABINOIDS URINE POSITIVE (NEGATIVE)
[2022-04-22] MEDS ORDERED: diphenhydrAMINE 50MG/ML VIAL IM ONE (18:50)
[2022-04-22] MEDS ORDERED: HALOPERIDOL 5MG/ML 1ML VIAL IM ONE (18:50)
[2022-04-22] MEDS ORDERED: MIDAZOLAM INJ 2MG/2ML VIAL IM ONE (18:50)
[2022-04-22] MEDS ORDERED: VENL75CA47 PO (19:21)
[2022-04-22] MEDS ORDERED: MIRT1TAB PO (19:21)
[2022-04-22] MEDS ORDERED: TRAZ-257 PO (19:21)
[2022-04-22] MEDS ORDERED: HALO5TAB33 PO (19:21)
[2022-04-22] MEDS ORDERED: PRAZ2CAP PO (19:21)
[2022-04-22] MEDS ORDERED: ARIP1TAB43 PO (19:21)
[2022-04-22] MEDS ORDERED: LORA-674 PO (19:21)
[2022-04-22] MEDS ORDERED: ABIL300I INJ (19:23)
[2022-04-22] MEDS ORDERED: DOCU100C16 PO (19:23)
[2022-04-22] MEDS ORDERED: HOME MED LIST COMPLETE! XX SCH (19:25)
[2022-04-23] MEDS: VENLAFAXINE **XR** 75MG CAPSULE PO SCH (09:00)
[2022-04-23] MEDS ORDERED: VENLAFAXINE **XR** 75MG CAPSULE PO SCH (09:00)
[2022-04-23] MEDS: LORATADINE 10 MG TAB PO SCH (09:00)
[2022-04-23] MEDS ORDERED: traZODone 50 MG TAB PO PRN (12:35)
[2022-04-23] MEDS ORDERED: MAALOX 30 ML SUSP *UDC PO PRN (12:35)
[2022-04-23] MEDS ORDERED: MOM 30ML SUSPENSION UDC PO PRN (12:35)
[2022-04-23] MEDS ORDERED: LORazepam 1 MG TAB PO PRN (12:35)
[2022-04-23] MEDS ORDERED: IBUPROFEN 400MG TAB PO PRN (12:35)
[2022-04-23] MEDS: NICOTINE 21MG/24HR 1 EA TRANSDERMAL TD SCH (13:37)
[2022-04-23 16:47] VITALS: BP 121/62
[2022-04-23] MEDS ORDERED: NICOTINE POLACRILEX 2 MG GUM PO PRN (17:45)
[2022-04-23] MEDS: DOCUSATE SODIUM 100MG CAPSULE PO SCH (20:41)
[2022-04-23] MEDS: traZODone 100 MG TAB PO SCH (20:42)
[2022-04-23] MEDS: PRAZOSIN 1 MG CAP PO SCH (20:42)
[2022-04-23] MEDS: MIRTAZAPINE 7.5MG PER 1/2 TABLET PO SCH (20:42)
[2022-04-23] MEDS ORDERED: PRAZOSIN 1 MG CAP PO SCH (21:00)
[2022-04-23] MEDS ORDERED: traZODone 100 MG TAB PO SCH (21:00)
[2022-04-23] MEDS ORDERED: MIRTAZAPINE 7.5MG PER 1/2 TABLET PO SCH (21:00)
[2022-04-23] MEDS ORDERED: ARIPiprazole 10 MG TAB PO SCH (21:00)
[2022-04-24] MEDS: diphenhydrAMINE 25MG CAP PO PRN (00:22)
[2022-04-24 06:42] VITALS: BP 117/63
[2022-04-24] MEDS: NICOTINE 21MG/24HR 1 EA TRANSDERMAL TD SCH (09:00)
[2022-04-24] MEDS: LORATADINE 10 MG TAB PO SCH (09:08)
[2022-04-24] MEDS: DOCUSATE SODIUM 100MG CAPSULE PO SCH ×2 (09:08→20:46)
[2022-04-24] MEDS: VENLAFAXINE **XR** 75MG CAPSULE PO SCH (09:08)
[2022-04-24] MEDS ORDERED: HALOPERIDOL 5MG/ML 1ML VIAL IM STA ×2 (14:18)
[2022-04-24] MEDS ORDERED: diphenhydrAMINE 50MG/ML VIAL IM STA ×2 (14:18)
[2022-04-24] MEDS ORDERED: LORazepam 2 MG/ML VIAL IM STA ×2 (14:18)
[2022-04-24] MEDS: PRAZOSIN 1 MG CAP PO SCH (20:46)
[2022-04-24] MEDS: traZODone 100 MG TAB PO SCH (20:46)
[2022-04-24] MEDS: MIRTAZAPINE 7.5MG PER 1/2 TABLET PO SCH (20:46)
[2022-04-25 06:08] VITALS: BP 124/81
[2022-04-25] MEDS: DOCUSATE SODIUM 100MG CAPSULE PO SCH ×2 (08:14→19:56)
[2022-04-25] MEDS: NICOTINE 21MG/24HR 1 EA TRANSDERMAL TD SCH (08:15)
[2022-04-25] MEDS: LORATADINE 10 MG TAB PO SCH (08:15)
[2022-04-25] MEDS: VENLAFAXINE **XR** 75MG CAPSULE PO SCH (08:15)
[2022-04-25 18:35] VITALS: BP 150/80
[2022-04-25 19:57] VITALS: BP 150/80
[2022-04-25] MEDS: diphenhydrAMINE 25MG CAP PO PRN (19:57)
[2022-04-25] MEDS: traZODone 100 MG TAB PO SCH (19:57)
[2022-04-25] MEDS: MIRTAZAPINE 7.5MG PER 1/2 TABLET PO SCH (19:57)
[2022-04-25] MEDS: PRAZOSIN 1 MG CAP PO SCH (19:57)
[2022-04-25] MEDS ORDERED: ARIPiprazole 10 MG TAB PO SCH (21:00)
[2022-04-26 06:38] VITALS: BP 131/77
[2022-04-26] MEDS: LORATADINE 10 MG TAB PO SCH (07:49)
[2022-04-26] MEDS: VENLAFAXINE **XR** 75MG CAPSULE PO SCH (07:49)
[2022-04-26] MEDS: NICOTINE 21MG/24HR 1 EA TRANSDERMAL TD SCH (07:49)
[2022-04-26] MEDS: DOCUSATE SODIUM 100MG CAPSULE PO SCH (07:49)
[2022-04-26] MEDS ORDERED: BENA25CA4 PO (10:43)
[2022-04-26] MEDS ORDERED: ABIL20TA5 PO (10:46)
[2022-04-26] MEDS ORDERED: D 1010004 PO (10:48)
== END 2022-04-26 12:10 | disposition home or self-care (01) | DRG 750 ==
LOC: M ED 16:00 → M ED INP 04-23 12:35 → M PSY 04-23 16:45
PROVIDERS: ADMIT Student in an Organized Health Care Education/Training Program; ATTEND Psychiatry & Neurology Psychiatry
DX: F20.9 Schizophrenia, unspecified (principal); F43.10 Post-traumatic stress disorder, unspecified; F84.9 Pervasive developmental disorder, unspecified; F12.90 Cannabis use, unspecified, uncomplicated; R45.851 Suicidal ideations; K21.9 Gastro-esophageal reflux disease without esophagitis; Z91.51 Personal history of suicidal behavior; Z62.810 Personal history of physical and sexual abuse in childhood; Z20.822 Contact with and (suspected) exposure to COVID-19; Z79.899 Other long term (current) drug therapy; Z88.8 Allergy status to other drugs, medicaments and biological substances; Z78.1 Physical restraint status

== ENCOUNTER 2022-05-01 19:23 | Emergency (ER) | payer OTHER ==
[~2022-05-01] VITALS: Ht 162.6 cm; Wt 81.0 kg
[~2022-05-01 19:23] MED LIST changes: +ABIL20TA5 PO; +ABIL300I INJ; +BENA25CA4 PO; +D 1010004 PO; +DOCU100C16 PO
[2022-05-01] MEDS ORDERED: LORazepam 2 MG TAB PO STA (20:16)
[2022-05-01] MEDS ORDERED: OLANZapine ORAL DISINTEGRATING TAB 5MG PO ONE (20:20)
[2022-05-01 20:28] LABS: HEMATOCRIT 40.9 % (36.0-47.0); HEMOGLOBIN 13.2 g/dl (12.0-15.5); MEAN CORPUSCULAR HEMOGLOBIN 27.4 pg (27.0-33.0); MEAN CORPUSCULAR HGB CONC 32.3 g/dl (32.0-36.5); PLATELET COUNT, AUTOMATED 300 10^3/uL (150-450); RED BLOOD COUNT 4.81 10^6/uL (4.00-5.40); WHITE BLOOD COUNT 11.4 10^3/uL (4.0-10.0)
[2022-05-01 20:54] LABS: ETHYL ALCOHOL (ETHANOL) 0.004 % (0.000-0.010)
[2022-05-01 20:55] LABS: BILIRUBIN,DIRECT < 0.1 MG/DL (<0.4)
[2022-05-01 20:56] LABS: ACETAMINOPHEN LEVEL < 2.0 UG/ML (10.0-20.0); ALBUMIN 3.9 G/DL (3.2-5.2); ALKALINE PHOSPHATASE 92 U/L (46-116); ALT/SGPT 14 U/L (7.0-40); AST/SGOT 15 U/L (<34); BILIRUBIN,TOTAL 0.2 MG/DL (0.3-1.2); BLOOD UREA NITROGEN 13 MG/DL (9-23); CALCIUM LEVEL 9.7 MG/DL (8.5-10.1); CARBON DIOXIDE LEVEL 21 MMOL/L (20-31); CHLORIDE LEVEL 106 MMOL/L (98-107); CREATININE FOR GFR 0.67 MG/DL (0.55-1.30); GLOMERULAR FILTRATION RATE > 60.0 (>60); GLUCOSE, FASTING 92 MG/DL (60-100); POTASSIUM SERUM 4.2 MMOL/L (3.5-5.1); SALICYLATE LEVEL < 3.0 MG/DL (<30); SODIUM LEVEL 138 MMOL/L (136-145); TOTAL PROTEIN 7.1 G/DL (5.7-8.2)
[2022-05-01 20:58] LABS: THYROID STIMULATING HORMONE 0.926 uIU/ML (0.55-4.78)
[2022-05-01 21:04] LABS: HCG, SERUM QUALITATIVE NEGATIVE (NEGATIVE)
[2022-05-01 22:24] LABS: AMPHETAMINES LEVEL URINE NEGATIVE (NEGATIVE); BARBITURATES URINE NEGATIVE (NEGATIVE); BENZODIAZEPINES URINE NEGATIVE (NEGATIVE); COCAINE METABOLITE URINE NEGATIVE (NEGATIVE)
[2022-05-01 22:25] LABS: METHADONE URINE NEGATIVE (NEGATIVE); OPIATES URINE NEGATIVE (NEGATIVE); PHENCYCLIDINE URINE NEGATIVE (NEGATIVE)
[2022-05-01 22:30] LABS: CANNABINOIDS URINE POSITIVE (NEGATIVE)
[2022-05-02] MEDS ORDERED: D 101000 PO (06:23)
[2022-05-02] MEDS ORDERED: ARIP1TAB43 PO (06:23)
[2022-05-02] MEDS ORDERED: BENA25CA4 PO (06:23)
[2022-05-02] MEDS ORDERED: HOME MED LIST COMPLETE! XX SCH (06:25)
[2022-05-02] MEDS ORDERED: diphenhydrAMINE 25MG CAP PO PRN (07:30)
[2022-05-02] MEDS ORDERED: LORATADINE 10 MG TAB PO SCH (09:00)
[2022-05-02] MEDS ORDERED: DOCUSATE SODIUM 100MG CAPSULE PO SCH (09:00)
[2022-05-02] MEDS ORDERED: VENLAFAXINE **XR** 75MG CAPSULE PO SCH (09:00)
[2022-05-02] MEDS ORDERED: ENTER DRUG NAME HERE (PATIENT'S OWN MED) IM ONE (15:25)
[2022-05-02] MEDS ORDERED: ARIPIPRAZOLE 300 MG IM ONE (15:30)
[2022-05-02 15:50] VITALS: BP 146/75
[2022-05-02] MEDS ORDERED: traZODone 100 MG TAB PO SCH (21:00)
[2022-05-02] MEDS ORDERED: ARIPiprazole 10 MG TAB PO SCH (21:00)
[2022-05-02] MEDS ORDERED: MIRTAZAPINE 7.5MG PER 1/2 TABLET PO SCH (21:00)
[2022-05-02] MEDS ORDERED: PRAZOSIN 1 MG CAP PO SCH (21:00)
== END 2022-05-02 15:52 | disposition home or self-care (01) ==
LOC: M ED 19:43
DX: F20.9 Schizophrenia, unspecified (principal); R45.851 Suicidal ideations; F43.10 Post-traumatic stress disorder, unspecified; F32.A Depression, unspecified; J45.909 Unspecified asthma, uncomplicated; F17.200 Nicotine dependence, unspecified, uncomplicated; F12.10 Cannabis abuse, uncomplicated; Z88.2 Allergy status to sulfonamides; Z79.83 Long term (current) use of bisphosphonates; Z79.2 Long term (current) use of antibiotics; Z79.899 Other long term (current) drug therapy

== ENCOUNTER 2022-05-11 17:48 | Emergency (ER) | payer OTHER ==
[~2022-05-11 17:48] MED LIST changes: +D 101000 PO
[2022-05-11 18:49] LABS: BASO # 0.1 10^3/uL (0.0-0.2); BASO % 0.6 % (0.0-1.0); EOS # 0.1 10^3/uL (0.0-0.5); EOS % 1.3 % (0.0-3.0); HEMATOCRIT 40.8 % (36.0-47.0); HEMOGLOBIN 13.2 g/dl (12.0-15.5); LYMPH # 2.1 10^3/uL (1.5-5.0); MEAN CORPUSCULAR HEMOGLOBIN 27.9 pg (27.0-33.0); MEAN CORPUSCULAR HGB CONC 32.4 g/dl (32.0-36.5); MEAN CORPUSCULAR VOLUME 86.3 fl (80.0-96.0); MONO # 0.5 10^3/uL (0.0-0.8); NEUTROPHILS # 7.5 10^3/uL (1.5-8.5); NEUTROPHILS % 72.6 % (36.0-66.0); PLATELET COUNT, AUTOMATED 258 10^3/uL (150-450); RED BLOOD COUNT 4.73 10^6/uL (4.00-5.40); WHITE BLOOD COUNT 10.4 10^3/uL (4.0-10.0)
[2022-05-11 19:16] LABS: BLOOD UREA NITROGEN 14 MG/DL (9-23); CALCIUM LEVEL 9.4 MG/DL (8.5-10.1); CARBON DIOXIDE LEVEL 24 MMOL/L (20-31); CHLORIDE LEVEL 110 MMOL/L (98-107); CREATININE FOR GFR 0.79 MG/DL (0.55-1.30); GLOMERULAR FILTRATION RATE > 60.0 (>60); GLUCOSE, FASTING 77 MG/DL (60-100); POTASSIUM SERUM 4.1 MMOL/L (3.5-5.1); SODIUM LEVEL 145 MMOL/L (136-145)
[2022-05-11 20:35] VITALS: BP 143/92
== END 2022-05-11 23:28 | disposition home or self-care (01) ==
LOC: M ED 17:48
DX: N64.4 Mastodynia (principal); J45.909 Unspecified asthma, uncomplicated; F43.10 Post-traumatic stress disorder, unspecified; F20.9 Schizophrenia, unspecified; F17.200 Nicotine dependence, unspecified, uncomplicated; Z88.2 Allergy status to sulfonamides; Z79.899 Other long term (current) drug therapy; Z79.2 Long term (current) use of antibiotics; Z79.83 Long term (current) use of bisphosphonates

== ENCOUNTER 2022-05-17 15:16 | Inpatient (IN) | payer MEDICAID, OTHER ==
[~2022-05-17] VITALS: Ht 177.8 cm; Wt 100.0 kg
[2022-05-17 16:53] LABS: HEMATOCRIT 41.2 % (36.0-47.0); HEMOGLOBIN 13.3 g/dl (12.0-15.5); MEAN CORPUSCULAR HGB CONC 32.3 g/dl (32.0-36.5); MEAN CORPUSCULAR VOLUME 86.7 fl (80.0-96.0); PLATELET COUNT, AUTOMATED 236 10^3/uL (150-450); RED BLOOD COUNT 4.75 10^6/uL (4.00-5.40); WHITE BLOOD COUNT 8.5 10^3/uL (4.0-10.0)
[2022-05-17] MEDS ORDERED: OLANZapine ORAL DISINTEGRATING TAB 5MG PO ONE (17:25)
[2022-05-17 17:30] LABS: THYROID STIMULATING HORMONE 0.623 uIU/ML (0.55-4.78)
[2022-05-17 17:34] LABS: HCG, SERUM QUALITATIVE NEGATIVE (NEGATIVE)
[2022-05-17 17:40] LABS: ETHYL ALCOHOL (ETHANOL) 0.004 % (0.000-0.010)
[2022-05-17 17:42] LABS: SALICYLATE LEVEL < 3.0 MG/DL (<30)
[2022-05-17 17:43] LABS: ACETAMINOPHEN LEVEL < 2.0 UG/ML (10.0-20.0); ALBUMIN 3.8 G/DL (3.2-5.2); ALKALINE PHOSPHATASE 89 U/L (46-116); ALT/SGPT 14 U/L (7.0-40); AST/SGOT 18 U/L (<34); BILIRUBIN,DIRECT < 0.1 MG/DL (<0.4); BILIRUBIN,TOTAL < 0.2 MG/DL (0.3-1.2); BLOOD UREA NITROGEN 9 MG/DL (9-23); CALCIUM LEVEL 9.2 MG/DL (8.5-10.1); CARBON DIOXIDE LEVEL 22 MMOL/L (20-31); CHLORIDE LEVEL 107 MMOL/L (98-107); CREATININE FOR GFR 0.62 MG/DL (0.55-1.30); GLOMERULAR FILTRATION RATE > 60.0 (>60); GLUCOSE, FASTING 90 MG/DL (60-100); SODIUM LEVEL 139 MMOL/L (136-145)
[2022-05-17] MEDS ORDERED: ARIP1TAB10 PO (20:47)
[2022-05-17] MEDS ORDERED: HOME MED LIST COMPLETE! XX SCH (20:50)
[2022-05-18 06:04] LABS: AMPHETAMINES LEVEL URINE NEGATIVE (NEGATIVE); BARBITURATES URINE NEGATIVE (NEGATIVE); BENZODIAZEPINES URINE NEGATIVE (NEGATIVE); COCAINE METABOLITE URINE NEGATIVE (NEGATIVE)
[2022-05-18 06:05] LABS: CANNABINOIDS URINE NEGATIVE (NEGATIVE); METHADONE URINE NEGATIVE (NEGATIVE); OPIATES URINE NEGATIVE (NEGATIVE); PHENCYCLIDINE URINE NEGATIVE (NEGATIVE)
[2022-05-18] MEDS: LORATADINE 10 MG TAB PO SCH (09:24)
[2022-05-18] MEDS: VENLAFAXINE **XR** 75MG CAPSULE PO SCH (09:24)
[2022-05-18] MEDS ORDERED: LORazepam 1 MG TAB PO ONE (12:05)
[2022-05-18] MEDS: diphenhydrAMINE 25MG CAP PO PRN (12:49)
[2022-05-18] MEDS: OLANZapine ORAL DISINTEGRATING TAB 5MG PO PRN (16:02)
[2022-05-18] MEDS: ARIPiprazole 15 MG TAB (AbiLIFY) PO SCH (20:48)
[2022-05-18] MEDS: MIRTAZAPINE 7.5MG PER 1/2 TABLET PO SCH (20:48)
[2022-05-18] MEDS: traZODone 100 MG TAB PO SCH (20:48)
[2022-05-18] MEDS: PRAZOSIN 1 MG CAP PO SCH (20:49)
[2022-05-18] MEDS ORDERED: IBUPROFEN 600MG TAB PO ONE (21:00)
[2022-05-19] MEDS: VENLAFAXINE **XR** 75MG CAPSULE PO SCH (08:12)
[2022-05-19] MEDS: LORATADINE 10 MG TAB PO SCH (08:12)
[2022-05-19] MEDS: OLANZapine ORAL DISINTEGRATING TAB 5MG PO PRN (11:36)
[2022-05-19] MEDS: diphenhydrAMINE 25MG CAP PO PRN (15:25)
[2022-05-19] MEDS ORDERED: OLANZapine INTRAMUSCULAR 10MG VIAL IM ONE (18:10)
[2022-05-19] MEDS: ARIPiprazole 15 MG TAB (AbiLIFY) PO SCH (20:56)
[2022-05-19] MEDS: PRAZOSIN 1 MG CAP PO SCH (20:56)
[2022-05-19] MEDS: traZODone 100 MG TAB PO SCH (20:56)
[2022-05-19] MEDS: MIRTAZAPINE 7.5MG PER 1/2 TABLET PO SCH (20:56)
[2022-05-20] MEDS: LORATADINE 10 MG TAB PO SCH (08:50)
[2022-05-20] MEDS: VENLAFAXINE **XR** 75MG CAPSULE PO SCH (08:50)
[2022-05-20] MEDS: diphenhydrAMINE 25MG CAP PO PRN ×2 (08:50→17:21)
[2022-05-20] MEDS: OLANZapine ORAL DISINTEGRATING TAB 5MG PO PRN ×2 (08:51→17:21)
[2022-05-20] MEDS: ARIPiprazole 15 MG TAB (AbiLIFY) PO SCH (21:08)
[2022-05-20] MEDS: MIRTAZAPINE 7.5MG PER 1/2 TABLET PO SCH (21:08)
[2022-05-20] MEDS: PRAZOSIN 1 MG CAP PO SCH (21:09)
[2022-05-20] MEDS: traZODone 100 MG TAB PO SCH (21:09)
[2022-05-21] MEDS: VENLAFAXINE **XR** 75MG CAPSULE PO SCH (08:40)
[2022-05-21] MEDS: LORATADINE 10 MG TAB PO SCH (08:40)
[2022-05-21] MEDS: NICOTINE 21MG/24HR 1 EA TRANSDERMAL TD SCH (09:00)
[2022-05-21] MEDS ORDERED: MOM 30ML SUSPENSION UDC PO PRN (09:55)
[2022-05-21] MEDS ORDERED: IBUPROFEN 400MG TAB PO PRN (09:55)
[2022-05-21] MEDS ORDERED: MAALOX 30 ML SUSP *UDC PO PRN (09:55)
[2022-05-21] MEDS ORDERED: traZODone 50 MG TAB PO PRN (09:55)
[2022-05-21] MEDS: diphenhydrAMINE 25MG CAP PO PRN (11:05)
[2022-05-21 12:50] LABS: RSV AMPLIFICATION NEGATIVE (NEGATIVE)
[2022-05-21 13:26] VITALS: BP 129/69
[2022-05-21] MEDS: VITAMIN D 1,000 INTERNATIONAL UNITS TABLET PO SCH (14:30)
[2022-05-21] MEDS: traZODone 100 MG TAB PO SCH (20:16)
[2022-05-21] MEDS: MIRTAZAPINE 7.5MG PER 1/2 TABLET PO SCH (20:16)
[2022-05-21] MEDS: ARIPiprazole 15 MG TAB (AbiLIFY) PO SCH (20:16)
[2022-05-21] MEDS: PRAZOSIN 1 MG CAP PO SCH (20:18)
[2022-05-21] MEDS: LORazepam 1 MG TAB PO PRN (21:52)
[2022-05-22 06:05] VITALS: BP 108/61
[2022-05-22] MEDS: VITAMIN D 1,000 INTERNATIONAL UNITS TABLET PO SCH (08:17)
[2022-05-22] MEDS: VENLAFAXINE **XR** 75MG CAPSULE PO SCH (08:17)
[2022-05-22] MEDS: LORATADINE 10 MG TAB PO SCH (08:18)
[2022-05-22] MEDS: diphenhydrAMINE 25MG CAP PO PRN ×2 (08:51→21:06)
[2022-05-22] MEDS: LORazepam 1 MG TAB PO PRN (08:52)
[2022-05-22] MEDS ORDERED: LORATADINE 10 MG TAB PO SCH (09:00)
[2022-05-22] MEDS: NICOTINE 21MG/24HR 1 EA TRANSDERMAL TD SCH (09:00)
[2022-05-22] MEDS: OLANZapine ORAL DISINTEGRATING TAB 5MG PO PRN (13:40)
[2022-05-22 18:12] VITALS: BP 132/90
[2022-05-22] MEDS ORDERED: OLANZapine 5 MG TAB PO SCH (21:00)
[2022-05-22] MEDS: MIRTAZAPINE 7.5MG PER 1/2 TABLET PO SCH (21:06)
[2022-05-22] MEDS: traZODone 100 MG TAB PO SCH (21:06)
[2022-05-22] MEDS: PRAZOSIN 1 MG CAP PO SCH (21:06)
[2022-05-22] MEDS: ARIPiprazole 15 MG TAB (AbiLIFY) PO SCH (21:06)
[2022-05-23 07:18] LABS: CHOLESTEROL RISK RATIO 3.71 (<5); HDL CHOLESTEROL 32.8 MG/DL (>40); LDL CHOLESTEROL 73.8 MG/DL (<100)
[2022-05-23] MEDS: LORATADINE 10 MG TAB PO SCH (10:10)
[2022-05-23] MEDS: VENLAFAXINE **XR** 75MG CAPSULE PO SCH (10:10)
[2022-05-23] MEDS: VITAMIN D 1,000 INTERNATIONAL UNITS TABLET PO SCH (10:10)
[2022-05-23] MEDS: OLANZapine 5 MG TAB PO SCH (11:53)
[2022-05-23 12:19] VITALS: BP 132/90
[2022-05-23] MEDS: LORazepam 1 MG TAB PO PRN (15:30)
[2022-05-23] MEDS: ARIPiprazole 15 MG TAB (AbiLIFY) PO SCH (21:55)
[2022-05-23] MEDS: traZODone 100 MG TAB PO SCH (21:55)
[2022-05-23] MEDS: MIRTAZAPINE 7.5MG PER 1/2 TABLET PO SCH (21:55)
[2022-05-23] MEDS: PRAZOSIN 1 MG CAP PO SCH (21:55)
[2022-05-23] MEDS: OLANZapine 10 MG TAB PO SCH (21:55)
[2022-05-24 07:04] VITALS: BP 118/63
[2022-05-24] MEDS: VENLAFAXINE **XR** 75MG CAPSULE PO SCH ×2 (09:00→09:24)
[2022-05-24] MEDS: OLANZapine 5 MG TAB PO SCH ×2 (09:00→09:24)
[2022-05-24] MEDS: LORATADINE 10 MG TAB PO SCH ×2 (09:00→09:24)
[2022-05-24] MEDS: VITAMIN D 1,000 INTERNATIONAL UNITS TABLET PO SCH ×2 (09:00→09:24)
[2022-05-24] MEDS ORDERED: ARIPiprazole MONOHYDRATE 400 MG INJ (ABILIFY)(FREE PSY INPT ONLY) IM ONE (11:00)
[2022-05-24] MEDS: ARIPiprazole 15 MG TAB (AbiLIFY) PO SCH (20:13)
[2022-05-24] MEDS: MIRTAZAPINE 7.5MG PER 1/2 TABLET PO SCH (20:13)
[2022-05-24] MEDS: PRAZOSIN 1 MG CAP PO SCH (20:13)
[2022-05-24] MEDS: traZODone 100 MG TAB PO SCH (20:13)
[2022-05-24] MEDS: OLANZapine 10 MG TAB PO SCH (20:13)
[2022-05-24] MEDS: diphenhydrAMINE 25MG CAP PO PRN (20:14)
[2022-05-25] MEDS: LORATADINE 10 MG TAB PO SCH (09:45)
[2022-05-25] MEDS: OLANZapine 5 MG TAB PO SCH (09:45)
[2022-05-25] MEDS: VITAMIN D 1,000 INTERNATIONAL UNITS TABLET PO SCH (09:45)
[2022-05-25] MEDS: VENLAFAXINE **XR** 75MG CAPSULE PO SCH (09:45)
[2022-05-25] MEDS: diphenhydrAMINE 25MG CAP PO PRN ×2 (10:26→23:27)
[2022-05-25] MEDS: LORazepam 1 MG TAB PO PRN (10:52)
[2022-05-25] MEDS: MIRTAZAPINE 7.5MG PER 1/2 TABLET PO SCH (20:44)
[2022-05-25] MEDS: ARIPiprazole 15 MG TAB (AbiLIFY) PO SCH (20:45)
[2022-05-25] MEDS: OLANZapine 10 MG TAB PO SCH (20:45)
[2022-05-25] MEDS: traZODone 100 MG TAB PO SCH (20:45)
[2022-05-25] MEDS: PRAZOSIN 1 MG CAP PO SCH (20:46)
[2022-05-26] MEDS: LORATADINE 10 MG TAB PO SCH (08:09)
[2022-05-26] MEDS: OLANZapine 5 MG TAB PO SCH (08:09)
[2022-05-26] MEDS: VENLAFAXINE **XR** 75MG CAPSULE PO SCH (08:09)
[2022-05-26] MEDS: VITAMIN D 1,000 INTERNATIONAL UNITS TABLET PO SCH (08:09)
[2022-05-26] MEDS: LORazepam 1 MG TAB PO PRN (15:50)
[2022-05-26 18:28] VITALS: BP 130/70
[2022-05-26] MEDS: MIRTAZAPINE 7.5MG PER 1/2 TABLET PO SCH (20:29)
[2022-05-26] MEDS: diphenhydrAMINE 25MG CAP PO PRN (20:29)
[2022-05-26] MEDS: traZODone 100 MG TAB PO SCH (20:29)
[2022-05-26] MEDS: OLANZapine 10 MG TAB PO SCH (20:29)
[2022-05-26] MEDS: ARIPiprazole 15 MG TAB (AbiLIFY) PO SCH (20:29)
[2022-05-26] MEDS: PRAZOSIN 1 MG CAP PO SCH (20:29)
[2022-05-27] MEDS: VITAMIN D 1,000 INTERNATIONAL UNITS TABLET PO SCH (07:32)
[2022-05-27] MEDS: LORATADINE 10 MG TAB PO SCH (07:32)
[2022-05-27] MEDS: VENLAFAXINE **XR** 75MG CAPSULE PO SCH (07:32)
[2022-05-27] MEDS: OLANZapine 5 MG TAB PO SCH (07:33)
[2022-05-27] MEDS: diphenhydrAMINE 25MG CAP PO PRN ×2 (07:33→20:25)
[2022-05-27] MEDS: LORazepam 1 MG TAB PO PRN (07:41)
[2022-05-27] MEDS: MIRTAZAPINE 7.5MG PER 1/2 TABLET PO SCH (20:25)
[2022-05-27] MEDS: OLANZapine 10 MG TAB PO SCH (20:25)
[2022-05-27] MEDS: traZODone 100 MG TAB PO SCH (20:25)
[2022-05-27] MEDS: ARIPiprazole 15 MG TAB (AbiLIFY) PO SCH (20:25)
[2022-05-27] MEDS: PRAZOSIN 1 MG CAP PO SCH (20:26)
[2022-05-28 06:27] VITALS: BP 121/70
[2022-05-28] MEDS: LORATADINE 10 MG TAB PO SCH (08:08)
[2022-05-28] MEDS: VITAMIN D 1,000 INTERNATIONAL UNITS TABLET PO SCH (08:08)
[2022-05-28] MEDS: VENLAFAXINE **XR** 75MG CAPSULE PO SCH (08:08)
[2022-05-28] MEDS: OLANZapine 5 MG TAB PO SCH (08:08)
[2022-05-28] MEDS ORDERED: LORazepam 2 MG TAB PO PRN (12:30)
[2022-05-28] MEDS: diphenhydrAMINE 25MG CAP PO PRN (14:27)
[2022-05-28] MEDS: OLANZapine ORAL DISINTEGRATING TAB 5MG PO PRN (15:05)
[2022-05-28 21:16] VITALS: BP 121/70
[2022-05-28] MEDS: traZODone 100 MG TAB PO SCH (21:16)
[2022-05-28] MEDS: OLANZapine 10 MG TAB PO SCH (21:16)
[2022-05-28] MEDS: PRAZOSIN 1 MG CAP PO SCH (21:16)
[2022-05-28] MEDS: ARIPiprazole 15 MG TAB (AbiLIFY) PO SCH (21:16)
[2022-05-28] MEDS: MIRTAZAPINE 7.5MG PER 1/2 TABLET PO SCH (21:16)
[2022-05-29 06:46] VITALS: BP 108/60
[2022-05-29] MEDS ORDERED: DIVALPROEX 250MG *ER* TAB PO SCH (09:00)
[2022-05-29] MEDS ORDERED: OLANZapine 10 MG TAB PO SCH ×2 (09:00→09:29)
[2022-05-29] MEDS ORDERED: OLANZapine 5 MG TAB PO SCH (09:00)
[2022-05-29] MEDS: LORATADINE 10 MG TAB PO SCH (09:26)
[2022-05-29] MEDS: VENLAFAXINE **XR** 75MG CAPSULE PO SCH (09:26)
[2022-05-29] MEDS: VITAMIN D 1,000 INTERNATIONAL UNITS TABLET PO SCH (09:26)
[2022-05-29] MEDS ORDERED: OLAN1TAB20 PO (10:51)
[2022-05-29] MEDS ORDERED: DEPA250T2 PO (10:51)
[2022-05-29] MEDS ORDERED: HALO5TAB33 PO (10:51)
[2022-05-29] MEDS ORDERED: ABIL1INJ2 IM (10:51)
[2022-05-29] MEDS ORDERED: ARIP1TAB10 PO ×2 (10:51→12:01)
[2022-05-29] MEDS ORDERED: VENL75CA47 PO (10:51)
== END 2022-05-29 12:13 | disposition home or self-care (01) | DRG 750 ==
LOC: M ED 15:16 → M ED INP 05-21 09:55 → M PSY 05-21 14:05
PROVIDERS: ADMIT Student in an Organized Health Care Education/Training Program; ATTEND Psychiatry & Neurology Psychiatry
DX: F20.9 Schizophrenia, unspecified (principal); F84.9 Pervasive developmental disorder, unspecified; F43.10 Post-traumatic stress disorder, unspecified; F17.200 Nicotine dependence, unspecified, uncomplicated; F60.3 Borderline personality disorder; Z88.8 Allergy status to other drugs, medicaments and biological substances; Z79.899 Other long term (current) drug therapy; Z62.810 Personal history of physical and sexual abuse in childhood; K21.9 Gastro-esophageal reflux disease without esophagitis; J45.909 Unspecified asthma, uncomplicated

== ENCOUNTER → 2022-07-11 | Outpatient (CLI) | payer OTHER ==
[~2022-07-11] MED LIST changes: +ABIL1INJ2 IM; +DEPA250T2 PO; +OLAN1TAB20 PO
== END ==
LOC: M PLALAB 12:00
PROVIDERS: ATTEND Psychiatry & Neurology Psychiatry
DX: F43.10 Post-traumatic stress disorder, unspecified (principal)

== ENCOUNTER 2022-10-23 11:10 | Emergency (ER) | payer OTHER ==
[~2022-10-23] VITALS: Ht 154.9 cm; Wt 89.5 kg
[~2022-10-23 11:10] MED LIST changes: +BENZ0.5T2 PO; -BENZ0.5T23 PO; +LORA1TAB23 PO; -LORA1TAB4 PO; +SENN-186 PO; +SENN-188 PO; -SENN-80 PO; -SENN18TA PO
[2022-10-23 13:25] LABS: HEMATOCRIT 39.3 % (36.0-47.0); HEMOGLOBIN 12.8 g/dl (12.0-15.5); MEAN CORPUSCULAR HEMOGLOBIN 28.1 pg (27.0-33.0); MEAN CORPUSCULAR HGB CONC 32.6 g/dl (32.0-36.5); MEAN CORPUSCULAR VOLUME 86.2 fl (80.0-96.0); PLATELET COUNT, AUTOMATED 205 10^3/uL (150-450); RED BLOOD COUNT 4.56 10^6/uL (4.00-5.40); WHITE BLOOD COUNT 8.4 10^3/uL (4.0-10.0)
[2022-10-23 13:51] LABS: ALBUMIN 3.5 G/DL (3.2-5.2); ALKALINE PHOSPHATASE 65 U/L (46-116); ALT/SGPT 9 U/L (7.0-40); AST/SGOT < 8 U/L (<34); BILIRUBIN,DIRECT < 0.1 MG/DL (<0.4); BILIRUBIN,TOTAL 0.3 MG/DL (0.3-1.2); BLOOD UREA NITROGEN 8 MG/DL (9-23); CALCIUM LEVEL 9.5 MG/DL (8.5-10.1); CARBON DIOXIDE LEVEL 22 MMOL/L (20-31); CHLORIDE LEVEL 111 MMOL/L (98-107); GLOMERULAR FILTRATION RATE > 60.0 (>60); GLUCOSE, FASTING 89 MG/DL (60-100); POTASSIUM SERUM 4.3 MMOL/L (3.5-5.1); SALICYLATE LEVEL < 3.0 MG/DL (<30); SODIUM LEVEL 138 MMOL/L (136-145); TOTAL PROTEIN 6.3 G/DL (5.7-8.2)
[2022-10-23 13:53] LABS: THYROID STIMULATING HORMONE 0.884 uIU/ML (0.55-4.78)
[2022-10-23 13:57] LABS: HCG, SERUM QUALITATIVE NEGATIVE (NEGATIVE)
[2022-10-23 14:20] LABS: ACETAMINOPHEN LEVEL < 2.0 UG/ML (10.0-20.0); ETHYL ALCOHOL (ETHANOL) < 0.003 % (0.000-0.010)
[2022-10-23 15:16] LABS: AMPHETAMINES LEVEL URINE NEGATIVE (NEGATIVE)
[2022-10-23 15:17] LABS: BARBITURATES URINE NEGATIVE (NEGATIVE); BENZODIAZEPINES URINE NEGATIVE (NEGATIVE); COCAINE METABOLITE URINE NEGATIVE (NEGATIVE); METHADONE URINE NEGATIVE (NEGATIVE); OPIATES URINE NEGATIVE (NEGATIVE); PHENCYCLIDINE URINE NEGATIVE (NEGATIVE)
[2022-10-23 15:23] LABS: CANNABINOIDS URINE POSITIVE (NEGATIVE)
[2022-10-23] MEDS ORDERED: HALO5TAB33 PO (15:31)
[2022-10-23] MEDS ORDERED: MIRT1TAB PO (15:31)
[2022-10-23] MEDS ORDERED: ABIL1INJ2 IM (15:31)
[2022-10-23] MEDS ORDERED: VENL75CA2 PO (15:31)
[2022-10-23] MEDS ORDERED: PRAZ2CAP PO (15:31)
[2022-10-23] MEDS ORDERED: DIVA250T7 PO (15:31)
[2022-10-23] MEDS ORDERED: ABIL1TAB12 PO (15:31)
[2022-10-23] MEDS ORDERED: TRAZ-189 PO (15:31)
[2022-10-23] MEDS ORDERED: OLAN20TA14 PO (15:31)
[2022-10-23] MEDS ORDERED: HOME MED LIST COMPLETE! XX SCH (15:35)
[2022-10-23] MEDS ORDERED: PROHANCE 279.3MG/ML 5ML VIAL As Ordered ONE (15:46)
[2022-10-23] MEDS ORDERED: PROHANCE 279.3MG/ML 15ML VIAL As Ordered ONE (15:46)
[2022-10-23 19:39] LABS: VALPROIC ACID (DEPAKOTE) 28.8 UG/ML (50.0-100.0)
[2022-10-23] MEDS ORDERED: PRAZOSIN 1 MG CAP PO SCH (21:00)
[2022-10-23] MEDS ORDERED: MIRTAZAPINE 7.5MG PER 1/2 TABLET PO SCH (21:00)
[2022-10-23] MEDS: DIVALPROEX 250MG *ER* TAB PO SCH (21:25)
[2022-10-23 21:26] VITALS: BP 139/92
[2022-10-24] MEDS ORDERED: OLANZapine 10 MG TAB PO SCH (09:00)
[2022-10-24] MEDS ORDERED: VENLAFAXINE **XR** 75MG CAPSULE PO SCH (09:00)
[2022-10-24] MEDS: DIVALPROEX 250MG *ER* TAB PO SCH (09:32)
[2022-10-24 12:45] VITALS: BP 135/80; TEMP 97.9; O2SAT 98
== END 2022-10-24 12:50 | disposition home or self-care (01) ==
LOC: M ED 11:10
DX: F32.A Depression, unspecified (principal); R45.851 Suicidal ideations; J45.909 Unspecified asthma, uncomplicated; F20.9 Schizophrenia, unspecified; F43.10 Post-traumatic stress disorder, unspecified; F41.9 Anxiety disorder, unspecified; K21.9 Gastro-esophageal reflux disease without esophagitis; F79 Unspecified intellectual disabilities; F17.200 Nicotine dependence, unspecified, uncomplicated; F12.10 Cannabis abuse, uncomplicated; Z88.8 Allergy status to other drugs, medicaments and biological substances; Z79.811 Long term (current) use of aromatase inhibitors; Z79.899 Other long term (current) drug therapy
CPT/HCPCS: 36415; 70450; 70553; 80048; 80076; 80143; 80164; 80307; 82077; 84443; 84703; 85027; 87635; 99284; A9576

== ENCOUNTER 2023-01-19 00:23 | Emergency (ER) | payer OTHER ==
[~2023-01-19] VITALS: Ht 154.9 cm; Wt 89.0 kg
[~2023-01-19 00:23] MED LIST changes: +ABIL1TAB12 PO; +DIVA250T7 PO; +LORA-1041 PO; -LORA-674 PO; +OLAN20TA14 PO
[2023-01-19 01:21] LABS: HEMATOCRIT 37.9 % (36.0-47.0); MEAN CORPUSCULAR HEMOGLOBIN 29.5 pg (27.0-33.0); MEAN CORPUSCULAR HGB CONC 34.3 g/dl (32.0-36.5); MEAN CORPUSCULAR VOLUME 85.9 fl (80.0-96.0); PLATELET COUNT, AUTOMATED 225 10^3/uL (150-450); RED BLOOD COUNT 4.41 10^6/uL (4.00-5.40); WHITE BLOOD COUNT 11.5 10^3/uL (4.0-10.0)
[2023-01-19 01:55] LABS: ETHYL ALCOHOL (ETHANOL) 0.004 % (0.000-0.010)
[2023-01-19 01:57] LABS: ACETAMINOPHEN LEVEL < 2.0 UG/ML (10.0-20.0); ALBUMIN 3.8 G/DL (3.2-5.2); ALKALINE PHOSPHATASE 69 U/L (46-116); ALT/SGPT < 9 U/L (7.0-40); AST/SGOT 13 U/L (<34); BILIRUBIN,DIRECT 0.1 MG/DL (<0.4); BILIRUBIN,TOTAL 0.2 MG/DL (0.3-1.2); BLOOD UREA NITROGEN 9 MG/DL (9-23); CALCIUM LEVEL 8.8 MG/DL (8.5-10.1); CARBON DIOXIDE LEVEL 24 MMOL/L (20-31); CHLORIDE LEVEL 109 MMOL/L (98-107); CREATININE FOR GFR 0.66 MG/DL (0.55-1.30); GLOMERULAR FILTRATION RATE > 60.0 (>60); GLUCOSE, FASTING 91 MG/DL (60-100); POTASSIUM SERUM 3.8 MMOL/L (3.5-5.1); SALICYLATE LEVEL < 3.0 MG/DL (<30); SODIUM LEVEL 139 MMOL/L (136-145); TOTAL PROTEIN 6.6 G/DL (5.7-8.2)
[2023-01-19 01:59] LABS: THYROID STIMULATING HORMONE 2.028 uIU/ML (0.55-4.78)
[2023-01-19 02:30] LABS: HCG, SERUM QUALITATIVE NEGATIVE (NEGATIVE)
[2023-01-19] MEDS ORDERED: ARIP10TA32 PO (03:54)
[2023-01-19] MEDS ORDERED: SENO8.6T5 PO (04:02)
[2023-01-19] MEDS ORDERED: OLAN1TAB20 PO (04:02)
[2023-01-19] MEDS ORDERED: LORA1TAB23 PO (04:02)
[2023-01-19] MEDS ORDERED: VITA100093 PO (04:02)
[2023-01-19] MEDS ORDERED: LORA-622 PO (04:02)
[2023-01-19] MEDS ORDERED: BANO25TA PO (04:02)
[2023-01-19] MEDS ORDERED: MM S100C PO (04:02)
[2023-01-19] MEDS ORDERED: DIVA250T67 PO (04:03)
[2023-01-19] MEDS ORDERED: HOME MED LIST COMPLETE! XX SCH (04:05)
[2023-01-19 07:54] LABS: AMPHETAMINES LEVEL URINE NEGATIVE (NEGATIVE); BARBITURATES URINE NEGATIVE (NEGATIVE); BENZODIAZEPINES URINE NEGATIVE (NEGATIVE); COCAINE METABOLITE URINE NEGATIVE (NEGATIVE); METHADONE URINE NEGATIVE (NEGATIVE); OPIATES URINE NEGATIVE (NEGATIVE); PHENCYCLIDINE URINE NEGATIVE (NEGATIVE)
[2023-01-19 08:00] LABS: CANNABINOIDS URINE POSITIVE (NEGATIVE)
[2023-01-19 08:41] LABS: VALPROIC ACID (DEPAKOTE) 6.6 UG/ML (50.0-100.0)
[2023-01-19 14:15] VITALS: BP 165/68; TEMP 98.6; O2SAT 98
== END 2023-01-19 14:20 | disposition home or self-care (01) ==
LOC: M ED 00:23
DX: F20.9 Schizophrenia, unspecified (principal); F32.A Depression, unspecified; R45.851 Suicidal ideations; F17.200 Nicotine dependence, unspecified, uncomplicated; Z79.83 Long term (current) use of bisphosphonates; Z79.899 Other long term (current) drug therapy; Z88.8 Allergy status to other drugs, medicaments and biological substances

== ENCOUNTER 2023-02-18 01:01 | Inpatient (IN) | payer OTHER ==
[~2023-02-18] VITALS: Ht 152.4 cm; Wt 78.5 kg
[~2023-02-18 01:01] MED LIST changes: +ARIP10TA32 PO; +BANO25TA PO; +DIVA250T67 PO; +LORA-622 PO; +MM S100C PO; +SENO8.6T5 PO
[2023-02-18 01:57] LABS: HEMATOCRIT 44.6 % (36.0-47.0); MEAN CORPUSCULAR HEMOGLOBIN 29.7 pg (27.0-33.0); MEAN CORPUSCULAR HGB CONC 33.6 g/dl (32.0-36.5); MEAN CORPUSCULAR VOLUME 88.3 fl (80.0-96.0); PLATELET COUNT, AUTOMATED 290 10^3/uL (150-450); RED BLOOD COUNT 5.05 10^6/uL (4.00-5.40); WHITE BLOOD COUNT 13.1 10^3/uL (4.0-10.0)
[2023-02-18] MEDS ORDERED: LORazepam 2 MG/ML 1ML VIAL IM STA (02:01)
[2023-02-18] MEDS ORDERED: diphenhydrAMINE 50MG/ML VIAL IM ONE (02:05)
[2023-02-18 02:20] LABS: ETHYL ALCOHOL (ETHANOL) < 0.003 % (0.000-0.010)
[2023-02-18 02:22] LABS: ALKALINE PHOSPHATASE 77 U/L (46-116); ALT/SGPT < 9 U/L (7.0-40); AST/SGOT 12 U/L (<34); BILIRUBIN,DIRECT < 0.1 MG/DL (<0.4); BILIRUBIN,TOTAL 0.2 MG/DL (0.3-1.2); BLOOD UREA NITROGEN 8 MG/DL (9-23); CARBON DIOXIDE LEVEL 22 MMOL/L (20-31); CHLORIDE LEVEL 106 MMOL/L (98-107); CREATININE FOR GFR 0.64 MG/DL (0.55-1.30); GLOMERULAR FILTRATION RATE > 60.0 (>60); GLUCOSE, FASTING 110 MG/DL (60-100); POTASSIUM SERUM 3.9 MMOL/L (3.5-5.1); SALICYLATE LEVEL < 3.0 MG/DL (<30); SODIUM LEVEL 140 MMOL/L (136-145); TOTAL PROTEIN 7.2 G/DL (5.7-8.2)
[2023-02-18 02:24] LABS: THYROID STIMULATING HORMONE 1.881 uIU/ML (0.55-4.78)
[2023-02-18] MEDS ORDERED: HALOPERIDOL 5MG/ML 1ML VIAL IM ONE (03:00)
[2023-02-18] MEDS ORDERED: med rec comment (03:02)
[2023-02-18] MEDS ORDERED: HOME MED LIST COMPLETE! XX SCH (03:05)
[2023-02-18 03:23] LABS: HCG, SERUM QUALITATIVE NEGATIVE (NEGATIVE)
[2023-02-18] MEDS: VITAMIN D 1,000 INTERNATIONAL UNITS TABLET PO SCH (10:42)
[2023-02-18] MEDS: VENLAFAXINE **XR** 75MG CAPSULE PO SCH (10:43)
[2023-02-18] MEDS: DOCUSATE SODIUM 100MG CAPSULE PO SCH ×2 (10:43→20:04)
[2023-02-18] MEDS: ARIPiprazole 10 MG TAB PO SCH (10:43)
[2023-02-18] MEDS: DIVALPROEX 250MG TAB PO SCH ×2 (10:43→20:04)
[2023-02-18 11:22] LABS: AMPHETAMINES LEVEL URINE NEGATIVE (NEGATIVE); BARBITURATES URINE NEGATIVE (NEGATIVE); BENZODIAZEPINES URINE NEGATIVE (NEGATIVE); COCAINE METABOLITE URINE NEGATIVE (NEGATIVE); METHADONE URINE NEGATIVE (NEGATIVE)
[2023-02-18 11:23] LABS: OPIATES URINE NEGATIVE (NEGATIVE); PHENCYCLIDINE URINE NEGATIVE (NEGATIVE)
[2023-02-18 11:24] LABS: CANNABINOIDS URINE POSITIVE (NEGATIVE)
[2023-02-18] MEDS ORDERED: diphenhydrAMINE 25MG CAP PO PRN (12:40)
[2023-02-18] MEDS ORDERED: MOM 30ML SUSPENSION UDC PO PRN ×2 (12:40→13:00)
[2023-02-18] MEDS ORDERED: IBUPROFEN 400MG TAB PO PRN ×2 (12:40→13:00)
[2023-02-18] MEDS ORDERED: MAALOX 30 ML SUSP *UDC PO PRN ×2 (12:40→13:00)
[2023-02-18] MEDS ORDERED: OLANZapine 5 MG TAB PO PRN (12:40)
[2023-02-18] MEDS ORDERED: traZODone 50 MG TAB PO PRN (12:40)
[2023-02-18] MEDS ORDERED: ACETAMINOPHEN TAB 650MG DOSE (2X325MG) PO PRN ×2 (12:40→13:00)
[2023-02-18 16:02] LABS: RSV AMPLIFICATION NEGATIVE (NEGATIVE)
[2023-02-18 16:53] VITALS: BP 138/68; TEMP 98; O2SAT 96
[2023-02-18] MEDS: MIRTAZAPINE 7.5MG PER 1/2 TABLET PO SCH (20:04)
[2023-02-18] MEDS: OLANZapine 10 MG TAB PO SCH (20:04)
[2023-02-18] MEDS: traZODone 50 MG TAB PO PRN (20:05)
[2023-02-18] MEDS: LORATADINE 10 MG TAB PO SCH (20:05)
[2023-02-18] MEDS: PRAZOSIN 1 MG CAP PO SCH (20:06)
[2023-02-19 06:44] VITALS: BP 138/81; TEMP 97.1; O2SAT 96
[2023-02-19 08:37] LABS: BASO % 0.5 % (0.0-1.0); EOS # 0.2 10^3/uL (0.0-0.5); EOS % 2.6 % (0.0-3.0); HEMATOCRIT 40.7 % (36.0-47.0); LYMPH # 2.4 10^3/uL (1.5-5.0); LYMPH % 28.5 % (24.0-44.0); MEAN CORPUSCULAR HEMOGLOBIN 29.9 pg (27.0-33.0); MEAN CORPUSCULAR HGB CONC 34.4 g/dl (32.0-36.5); MONO # 0.5 10^3/uL (0.0-0.8); MONO % 6.2 % (2.0-8.0); NEUTROPHILS # 5.2 10^3/uL (1.5-8.5); NEUTROPHILS % 61.7 % (36.0-66.0); PLATELET COUNT, AUTOMATED 234 10^3/uL (150-450); RED BLOOD COUNT 4.68 10^6/uL (4.00-5.40); WHITE BLOOD COUNT 8.4 10^3/uL (4.0-10.0)
[2023-02-19] MEDS: VITAMIN D 1,000 INTERNATIONAL UNITS TABLET PO SCH (08:58)
[2023-02-19] MEDS: ARIPiprazole 10 MG TAB PO SCH (08:59)
[2023-02-19] MEDS: VENLAFAXINE **XR** 75MG CAPSULE PO SCH (09:00)
[2023-02-19] MEDS: DOCUSATE SODIUM 100MG CAPSULE PO SCH ×2 (09:00→20:09)
[2023-02-19] MEDS: DIVALPROEX 250MG TAB PO SCH ×2 (09:00→20:09)
[2023-02-19] MEDS ORDERED: INFLUENZA QUADRIVALENT PF VACCINE 0.5ML SYRINGE IM.IMMUN ONE (12:00)
[2023-02-19] MEDS: OLANZapine 5 MG TAB PO PRN ×2 (12:01→15:47)
[2023-02-19] MEDS: diphenhydrAMINE 25MG CAP PO PRN (15:47)
[2023-02-19 16:25] VITALS: BP 130/70; TEMP 97.6; O2SAT 97
[2023-02-19] MEDS: LORATADINE 10 MG TAB PO SCH (20:09)
[2023-02-19] MEDS: traZODone 50 MG TAB PO PRN (20:09)
[2023-02-19] MEDS: OLANZapine 10 MG TAB PO SCH (20:09)
[2023-02-19] MEDS: PRAZOSIN 1 MG CAP PO SCH (20:09)
[2023-02-19] MEDS: MIRTAZAPINE 7.5MG PER 1/2 TABLET PO SCH (20:09)
[2023-02-20 06:29] VITALS: BP 147/82; TEMP 97.3; O2SAT 95
[2023-02-20] MEDS: VENLAFAXINE **XR** 75MG CAPSULE PO SCH (08:36)
[2023-02-20] MEDS: DOCUSATE SODIUM 100MG CAPSULE PO SCH ×2 (08:36→20:05)
[2023-02-20] MEDS: VITAMIN D 1,000 INTERNATIONAL UNITS TABLET PO SCH (08:36)
[2023-02-20] MEDS: ARIPiprazole 10 MG TAB PO SCH ×2 (08:36→20:05)
[2023-02-20] MEDS: DIVALPROEX 250MG TAB PO SCH ×2 (08:37→20:05)
[2023-02-20] MEDS ORDERED: BENZTROPINE 0.5 MG TAB PO PRN (09:50)
[2023-02-20] MEDS: PANTOPRAZOLE 20 MG TAB PO SCH (11:09)
[2023-02-20 18:01] VITALS: BP 143/74; TEMP 96.6; O2SAT 97
[2023-02-20] MEDS: traZODone 50 MG TAB PO PRN (20:05)
[2023-02-20] MEDS: LORATADINE 10 MG TAB PO SCH (20:05)
[2023-02-20] MEDS: MIRTAZAPINE 7.5MG PER 1/2 TABLET PO SCH (20:05)
[2023-02-20] MEDS: PRAZOSIN 1 MG CAP PO SCH (20:05)
[2023-02-21 06:56] VITALS: BP 143/68; TEMP 98.1; O2SAT 96
[2023-02-21] MEDS: PANTOPRAZOLE 20 MG TAB PO SCH (07:37)
[2023-02-21] MEDS: VITAMIN D 1,000 INTERNATIONAL UNITS TABLET PO SCH (09:21)
[2023-02-21] MEDS: ARIPiprazole 10 MG TAB PO SCH ×2 (09:23→20:08)
[2023-02-21] MEDS: VENLAFAXINE **XR** 75MG CAPSULE PO SCH (09:23)
[2023-02-21] MEDS: DIVALPROEX 250MG TAB PO SCH ×2 (09:23→20:08)
[2023-02-21] MEDS: DOCUSATE SODIUM 100MG CAPSULE PO SCH ×2 (09:23→20:08)
[2023-02-21 18:28] VITALS: BP 145/82; TEMP 97.3; O2SAT 97
[2023-02-21] MEDS: OLANZapine 5 MG TAB PO PRN (19:19)
[2023-02-21] MEDS: LORATADINE 10 MG TAB PO SCH (20:08)
[2023-02-21] MEDS: traZODone 50 MG TAB PO PRN (20:08)
[2023-02-21] MEDS: MIRTAZAPINE 7.5MG PER 1/2 TABLET PO SCH (20:08)
[2023-02-21] MEDS: PRAZOSIN 1 MG CAP PO SCH (20:10)
[2023-02-22] MEDS: PANTOPRAZOLE 20 MG TAB PO SCH (05:59)
[2023-02-22 06:35] VITALS: BP 122/83; TEMP 97.8; O2SAT 99
[2023-02-22] MEDS: VENLAFAXINE **XR** 75MG CAPSULE PO SCH (09:08)
[2023-02-22] MEDS: DIVALPROEX 250MG TAB PO SCH ×2 (09:08→20:21)
[2023-02-22] MEDS: ARIPiprazole 10 MG TAB PO SCH ×2 (09:08→20:25)
[2023-02-22] MEDS: VITAMIN D 1,000 INTERNATIONAL UNITS TABLET PO SCH (09:08)
[2023-02-22] MEDS: DOCUSATE SODIUM 100MG CAPSULE PO SCH ×2 (09:08→20:21)
[2023-02-22] MEDS ORDERED: diphenhydrAMINE 50MG CAP PO STA (09:30)
[2023-02-22] MEDS ORDERED: LORazepam 2 MG TAB PO STA (09:30)
[2023-02-22] MEDS ORDERED: LORazepam 1 MG TAB PO STA (10:03)
[2023-02-22] MEDS ORDERED: chlorproMAZINE INJ 50MG/2ML AMP IM STA (10:18)
[2023-02-22 10:45] VITALS: BP 173/105; TEMP 98; O2SAT 100
[2023-02-22 11:00] VITALS: BP_SYST 174; BP_DIAS 90; BP_DIAS 96; TEMP 98.3; O2SAT 97
[2023-02-22 17:43] VITALS: BP 141/78; TEMP 97.1; O2SAT 97
[2023-02-22] MEDS: MIRTAZAPINE 7.5MG PER 1/2 TABLET PO SCH (20:21)
[2023-02-22] MEDS: LORATADINE 10 MG TAB PO SCH (20:21)
[2023-02-22] MEDS: traZODone 50 MG TAB PO PRN (20:21)
[2023-02-22] MEDS: PRAZOSIN 1 MG CAP PO SCH (20:25)
[2023-02-23] MEDS: PANTOPRAZOLE 20 MG TAB PO SCH (05:41)
[2023-02-23] MEDS: OLANZapine 5 MG TAB PO PRN (07:31)
[2023-02-23] MEDS: diphenhydrAMINE 25MG CAP PO PRN ×2 (07:31→18:29)
[2023-02-23] MEDS: VENLAFAXINE **XR** 75MG CAPSULE PO SCH (08:51)
[2023-02-23] MEDS: DOCUSATE SODIUM 100MG CAPSULE PO SCH ×2 (08:51→20:24)
[2023-02-23] MEDS: DIVALPROEX 250MG TAB PO SCH ×2 (08:52→20:23)
[2023-02-23] MEDS: ARIPiprazole 10 MG TAB PO SCH ×2 (08:52→20:23)
[2023-02-23] MEDS: VITAMIN D 1,000 INTERNATIONAL UNITS TABLET PO SCH (08:52)
[2023-02-23 18:18] VITALS: BP 127/74; TEMP 97.7; O2SAT 97
[2023-02-23 20:20] VITALS: BP 132/79
[2023-02-23] MEDS: LORATADINE 10 MG TAB PO SCH (20:23)
[2023-02-23] MEDS: MIRTAZAPINE 7.5MG PER 1/2 TABLET PO SCH (20:24)
[2023-02-23] MEDS: PRAZOSIN 1 MG CAP PO SCH (20:24)
[2023-02-23] MEDS: traZODone 50 MG TAB PO PRN (20:24)
[2023-02-24] MEDS ORDERED: LORazepam 2 MG/ML 1ML VIAL IM ONE (01:05)
[2023-02-24] MEDS ORDERED: diphenhydrAMINE 50MG/ML VIAL IM ONE (01:05)
[2023-02-24] MEDS ORDERED: HALOPERIDOL 5MG/ML 1ML VIAL IM ONE (01:05)
[2023-02-24] MEDS: PANTOPRAZOLE 20 MG TAB PO SCH (05:43)
[2023-02-24] MEDS: DIVALPROEX 250MG TAB PO SCH ×2 (08:30→20:42)
[2023-02-24] MEDS: DOCUSATE SODIUM 100MG CAPSULE PO SCH ×2 (08:30→20:41)
[2023-02-24] MEDS: VENLAFAXINE **XR** 75MG CAPSULE PO SCH (08:30)
[2023-02-24] MEDS: VITAMIN D 1,000 INTERNATIONAL UNITS TABLET PO SCH (08:31)
[2023-02-24] MEDS: ARIPiprazole 10 MG TAB PO SCH ×2 (08:31→20:41)
[2023-02-24] MEDS: metroNIDAZOLE (FLAGYL) 500MG TABLET PO SCH ×2 (16:21→20:42)
[2023-02-24 18:10] VITALS: BP 130/70; TEMP 97.6; O2SAT 99
[2023-02-24] MEDS: MIRTAZAPINE 7.5MG PER 1/2 TABLET PO SCH (20:41)
[2023-02-24] MEDS: PRAZOSIN 1 MG CAP PO SCH (20:42)
[2023-02-24] MEDS: LORATADINE 10 MG TAB PO SCH (20:42)
[2023-02-25] MEDS: PANTOPRAZOLE 20 MG TAB PO SCH (05:38)
[2023-02-25 06:32] VITALS: BP 129/80; TEMP 97.8; O2SAT 96
[2023-02-25] MEDS: DIVALPROEX 250MG TAB PO SCH ×2 (08:07→20:04)
[2023-02-25] MEDS: VENLAFAXINE **XR** 75MG CAPSULE PO SCH (08:07)
[2023-02-25] MEDS: VITAMIN D 1,000 INTERNATIONAL UNITS TABLET PO SCH (08:07)
[2023-02-25] MEDS: ARIPiprazole 10 MG TAB PO SCH ×2 (08:07→20:04)
[2023-02-25] MEDS: DOCUSATE SODIUM 100MG CAPSULE PO SCH ×2 (08:07→20:02)
[2023-02-25] MEDS: metroNIDAZOLE (FLAGYL) 500MG TABLET PO SCH ×2 (08:08→20:04)
[2023-02-25] MEDS ORDERED: ARIPiprazole MONOHYDRATE 400 MG INJ (ABILIFY)(FREE PSY INPT ONLY) IM ONE (09:00)
[2023-02-25 18:34] VITALS: BP 136/80; TEMP 97.5; O2SAT 98
[2023-02-25] MEDS: PRAZOSIN 1 MG CAP PO SCH (20:04)
[2023-02-25] MEDS: LORATADINE 10 MG TAB PO SCH (20:04)
[2023-02-25] MEDS: MIRTAZAPINE 7.5MG PER 1/2 TABLET PO SCH (20:04)
[2023-02-26] MEDS: PANTOPRAZOLE 20 MG TAB PO SCH (05:34)
[2023-02-26 06:52] VITALS: BP 134/72; TEMP 97.9; O2SAT 97
[2023-02-26] MEDS: DIVALPROEX 250MG TAB PO SCH ×2 (08:35→20:04)
[2023-02-26] MEDS: ARIPiprazole 10 MG TAB PO SCH ×2 (08:35→20:04)
[2023-02-26] MEDS: DOCUSATE SODIUM 100MG CAPSULE PO SCH ×2 (08:35→20:04)
[2023-02-26] MEDS: VENLAFAXINE **XR** 75MG CAPSULE PO SCH (08:35)
[2023-02-26] MEDS: VITAMIN D 1,000 INTERNATIONAL UNITS TABLET PO SCH (08:35)
[2023-02-26] MEDS: metroNIDAZOLE (FLAGYL) 500MG TABLET PO SCH ×2 (08:35→20:03)
[2023-02-26] MEDS ORDERED: PRAZ2CAP PO (10:54)
[2023-02-26] MEDS ORDERED: BENZ0.5T2 PO (10:54)
[2023-02-26] MEDS ORDERED: DIVA250T67 PO (10:54)
[2023-02-26] MEDS ORDERED: ABIL1INJ2 IM (10:54)
[2023-02-26] MEDS ORDERED: HALO5TAB33 PO (10:54)
[2023-02-26] MEDS ORDERED: VITA100093 PO (10:54)
[2023-02-26] MEDS ORDERED: MIRT1TAB PO (10:54)
[2023-02-26] MEDS ORDERED: PANT20TA6 PO (10:54)
[2023-02-26] MEDS ORDERED: METR-265 PO (10:54)
[2023-02-26] MEDS ORDERED: TRAZ-252 PO (10:54)
[2023-02-26] MEDS ORDERED: VENL150C43 PO (10:54)
[2023-02-26] MEDS ORDERED: BANO25TA PO (10:54)
[2023-02-26 14:46] VITALS: BP 132/61; TEMP 98.9; O2SAT 98
[2023-02-26 20:04] VITALS: BP 133/78
[2023-02-26] MEDS: PRAZOSIN 1 MG CAP PO SCH (20:04)
[2023-02-26] MEDS: LORATADINE 10 MG TAB PO SCH (20:04)
[2023-02-26] MEDS: MIRTAZAPINE 7.5MG PER 1/2 TABLET PO SCH (20:04)
[2023-02-27] MEDS: PANTOPRAZOLE 20 MG TAB PO SCH (05:32)
[2023-02-27 06:39] VITALS: BP 137/67; TEMP 97.3; O2SAT 98
[2023-02-27] MEDS: ARIPiprazole 10 MG TAB PO SCH (08:22)
[2023-02-27] MEDS: VITAMIN D 1,000 INTERNATIONAL UNITS TABLET PO SCH (08:22)
[2023-02-27] MEDS: VENLAFAXINE **XR** 75MG CAPSULE PO SCH (08:22)
[2023-02-27] MEDS: DIVALPROEX 250MG TAB PO SCH (08:22)
[2023-02-27] MEDS: metroNIDAZOLE (FLAGYL) 500MG TABLET PO SCH (08:22)
[2023-02-27] MEDS: DOCUSATE SODIUM 100MG CAPSULE PO SCH (08:22)
== END 2023-02-27 13:21 | disposition home or self-care (01) | DRG 750 ==
LOC: M ED 01:01 → M ED INP 12:40 → M PSY 16:52
PROVIDERS: ADMIT Student in an Organized Health Care Education/Training Program; ATTEND Student in an Organized Health Care Education/Training Program
DX: F20.9 Schizophrenia, unspecified (principal); F43.10 Post-traumatic stress disorder, unspecified; F79 Unspecified intellectual disabilities; F12.90 Cannabis use, unspecified, uncomplicated; R45.851 Suicidal ideations; Z88.8 Allergy status to other drugs, medicaments and biological substances; Z79.899 Other long term (current) drug therapy; F17.210 Nicotine dependence, cigarettes, uncomplicated

== ENCOUNTER 2023-04-24 22:46 | Inpatient (IN) | payer MEDICAID, OTHER ==
[~2023-04-24] VITALS: Ht 154.9 cm; Wt 84.5 kg
[~2023-04-24 22:46] MED LIST changes: +METR-265 PO; +PANT20TA6 PO; +VENL150C43 PO; +med rec comment
[2023-04-24 23:29] LABS: HEMATOCRIT 40.1 % (36.0-47.0); HEMOGLOBIN 13.8 g/dl (12.0-15.5); MEAN CORPUSCULAR HEMOGLOBIN 30.5 pg (27.0-33.0); MEAN CORPUSCULAR HGB CONC 34.4 g/dl (32.0-36.5); MEAN CORPUSCULAR VOLUME 88.5 fl (80.0-96.0); PLATELET COUNT, AUTOMATED 231 10^3/uL (150-450); RED BLOOD COUNT 4.53 10^6/uL (4.00-5.40); WHITE BLOOD COUNT 11.9 10^3/uL (4.0-10.0)
[2023-04-24] MEDS ORDERED: PANT20TA51 PO (23:50)
[2023-04-24] MEDS ORDERED: VENL150C43 PO (23:50)
[2023-04-24] MEDS ORDERED: ABIL1INJ2 IM (23:50)
[2023-04-24] MEDS ORDERED: BANO25TA PO (23:50)
[2023-04-24] MEDS ORDERED: NICO4GUM47 MT (23:50)
[2023-04-24 23:51] LABS: AMPHETAMINES LEVEL URINE NEGATIVE (NEGATIVE); BARBITURATES URINE NEGATIVE (NEGATIVE); BENZODIAZEPINES URINE NEGATIVE (NEGATIVE); COCAINE METABOLITE URINE NEGATIVE (NEGATIVE); METHADONE URINE NEGATIVE (NEGATIVE); OPIATES URINE NEGATIVE (NEGATIVE); PHENCYCLIDINE URINE NEGATIVE (NEGATIVE)
[2023-04-24 23:53] LABS: ETHYL ALCOHOL (ETHANOL) < 0.003 % (0.000-0.010)
[2023-04-24 23:55] LABS: ALBUMIN 3.8 G/DL (3.2-5.2); ALKALINE PHOSPHATASE 60 U/L (46-116); ALT/SGPT < 9 U/L (7.0-40); AST/SGOT < 8 U/L (<34); BILIRUBIN,DIRECT < 0.1 MG/DL (<0.4); BILIRUBIN,TOTAL < 0.2 MG/DL (0.3-1.2); BLOOD UREA NITROGEN 15 MG/DL (9-23); CALCIUM LEVEL 9.2 MG/DL (8.5-10.1); CANNABINOIDS URINE POSITIVE (NEGATIVE); CARBON DIOXIDE LEVEL 23 MMOL/L (20-31); CHLORIDE LEVEL 108 MMOL/L (98-107); GLOMERULAR FILTRATION RATE > 60.0 (>60); GLUCOSE, FASTING 97 MG/DL (60-100); POTASSIUM SERUM 3.7 MMOL/L (3.5-5.1); SALICYLATE LEVEL < 3.0 MG/DL (<30); SODIUM LEVEL 138 MMOL/L (136-145); TOTAL PROTEIN 6.7 G/DL (5.7-8.2)
[2023-04-24 23:56] LABS: HCG, SERUM QUALITATIVE NEGATIVE (NEGATIVE)
[2023-04-24 23:57] LABS: THYROID STIMULATING HORMONE 1.825 uIU/ML (0.55-4.78)
[2023-04-25] MEDS ORDERED: MED REC IN PROGRESS XX SCH
[2023-04-25] MEDS ORDERED: diphenhydrAMINE 50MG/ML VIAL As Ordered ONE (04:44)
[2023-04-25] MEDS ORDERED: HALOPERIDOL 5MG/ML 1ML VIAL As Ordered ONE (04:45)
[2023-04-25] MEDS ORDERED: LORazepam 2 MG/ML 1ML VIAL As Ordered ONE (04:46)
[2023-04-25] MEDS: LORazepam 2 MG/ML 1ML VIAL IM ONE (04:54)
[2023-04-25] MEDS: diphenhydrAMINE 50MG/ML VIAL IM ONE (04:55)
[2023-04-25] MEDS: HALOPERIDOL 5MG/ML 1ML VIAL IM ONE (04:55)
[2023-04-25] MEDS ORDERED: HOME MED LIST COMPLETE! XX SCH (08:35)
[2023-04-25] MEDS ORDERED: SENOKOT S TAB PO PRN (08:50)
[2023-04-25] MEDS ORDERED: diphenhydrAMINE 25MG CAP PO PRN (08:50)
[2023-04-25] MEDS: VITAMIN D 1,000 INTERNATIONAL UNITS TABLET PO SCH (09:11)
[2023-04-25] MEDS: DIVALPROEX 250MG TAB PO SCH (09:11)
[2023-04-25] MEDS: DOCUSATE SODIUM 100MG CAPSULE PO SCH (09:11)
[2023-04-25] MEDS: VENLAFAXINE **XR** 75MG CAPSULE PO SCH (09:11)
[2023-04-25] MEDS: PANTOPRAZOLE 20 MG TAB PO SCH (09:26)
[2023-04-25 15:27] VITALS: BP 118/57; TEMP 97.5; O2SAT 96
[2023-04-25] MEDS ORDERED: NICOTINE 21MG/24HR 1 EA TRANSDERMAL TD PRN (15:30)
[2023-04-25] MEDS: BENZTROPINE 0.5 MG TAB PO PRN (20:53)
[2023-04-25] MEDS: PRAZOSIN 1 MG CAP PO SCH (20:53)
[2023-04-25] MEDS: LORATADINE 10 MG TAB PO SCH (20:53)
[2023-04-26 06:39] VITALS: BP 144/73; TEMP 96.3; O2SAT 95
[2023-04-26] MEDS ORDERED: NICOTINE 21MG/24HR 1 EA TRANSDERMAL TD SCH (09:00)
[2023-04-26] MEDS ORDERED: BENZTROPINE 0.5 MG TAB PO PRN (09:40)
[2023-04-26] MEDS: VITAMIN D 1,000 INTERNATIONAL UNITS TABLET PO SCH (10:19)
[2023-04-26] MEDS: VENLAFAXINE **XR** 75MG CAPSULE PO SCH (10:19)
[2023-04-26] MEDS: DIVALPROEX 250MG TAB PO SCH (10:19)
[2023-04-26] MEDS: DOCUSATE SODIUM 100MG CAPSULE PO SCH (10:20)
[2023-04-26] MEDS: diphenhydrAMINE 25MG CAP PO PRN (19:23)
[2023-04-26] MEDS: traZODone 50 MG TAB PO PRN (21:13)
[2023-04-26] MEDS: LORATADINE 10 MG TAB PO SCH (21:13)
[2023-04-26] MEDS: PRAZOSIN 1 MG CAP PO SCH (21:16)
[2023-04-27 06:26] VITALS: BP 126/70; TEMP 97.8; O2SAT 97
[2023-04-27] MEDS: PANTOPRAZOLE 20 MG TAB PO SCH (09:07)
[2023-04-27] MEDS: LORazepam 1 MG TAB PO PRN (10:31)
[2023-04-27 18:30] VITALS: BP 126/75; TEMP 97
[2023-04-28 06:33] VITALS: BP 97/57; TEMP 97.3; O2SAT 96
[2023-04-28 19:00] VITALS: BP 149/79; TEMP 97.4
[2023-04-29 18:14] VITALS: BP 125/62; TEMP 98; O2SAT 99
[2023-04-30 06:41] VITALS: BP 121/62; TEMP 97.5; O2SAT 97
[2023-04-30] MEDS: ARIPiprazole MONOHYDRATE 400 MG INJ (ABILIFY)(FREE PSY INPT ONLY) IM ONE (09:28)
[2023-04-30] MEDS: traZODone 100 MG TAB PO PRN (20:03)
[2023-05-01 17:32] VITALS: BP 142/80; TEMP 98.6
[2023-05-01] MEDS: IBUPROFEN 400MG TAB PO PRN (19:51)
[2023-05-02 17:14] VITALS: BP 144/81; TEMP 98.7; O2SAT 99
[2023-05-03 06:33] VITALS: BP 130/73; TEMP 97; O2SAT 95
[2023-05-03] MEDS: hydrOXYzine 50 MG TAB PO PRN (17:52)
[2023-05-04] MEDS: LORazepam 2 MG TAB PO ONE (21:00)
[2023-05-04] MEDS: diphenhydrAMINE 50MG CAP PO ONE (21:00)
[2023-05-05 16:31] VITALS: BP 123/69; TEMP 97.1; O2SAT 98
[2023-05-05] MEDS: SENOKOT S TAB PO PRN (20:54)
[2023-05-06 06:53] VITALS: BP 106/67; TEMP 97.1; O2SAT 98
[2023-05-06 18:57] VITALS: BP 135/74; TEMP 97.7
[2023-05-07] MEDS ORDERED: LORazepam 1 MG TAB PO PRN (11:50)
[2023-05-07] MEDS: BENZTROPINE 0.5 MG TAB PO PRN (11:59)
[2023-05-07] MEDS: LORazepam 2 MG TAB PO PRN (12:00)
[2023-05-07 18:00] VITALS: BP 123/84; TEMP 98.3
[2023-05-07] MEDS: DIVALPROEX 500 MG TAB PO SCH (21:09)
[2023-05-08 06:20] VITALS: BP 123/68; TEMP 97.6; O2SAT 98
[2023-05-08] MEDS: DIVALPROEX 250MG TAB PO SCH (08:57)
[2023-05-08] MEDS: diphenhydrAMINE 50MG CAP PO PRN (11:17)
[2023-05-09 16:10] VITALS: BP 138/65; TEMP 99.3; O2SAT 95
[2023-05-09] MEDS ORDERED: LORazepam 2 MG TAB PO PRN (21:00)
[2023-05-11 06:22] VITALS: BP 133/67; TEMP 98; O2SAT 96
[2023-05-14 19:10] VITALS: BP 99/66; TEMP 97.1; O2SAT 99
[2023-05-15 07:02] VITALS: BP 128/58; TEMP 97.2; O2SAT 97
[2023-05-16] MEDS: LORazepam 1 MG TAB PO PRN (15:47)
[2023-05-16] MEDS: QUEtiapine FUMARATE 100 MG TAB PO ONE (22:34)
[2023-05-16] MEDS: LORazepam 2 MG TAB PO ONE (22:35)
[2023-05-17 06:56] VITALS: BP 110/57; TEMP 98
[2023-05-17 16:32] VITALS: BP 119/59; TEMP 97.7; O2SAT 96
[2023-05-17] MEDS: QUEtiapine FUMARATE 100 MG TAB PO SCH (21:06)
[2023-05-17] MEDS: traZODone 50 MG TAB PO PRN (21:07)
[2023-05-17] MEDS: ACETAMINOPHEN TAB 650MG DOSE (2X325MG) PO PRN (23:22)
[2023-05-19] MEDS: QUEtiapine FUMARATE 100 MG TAB PO PRN (20:14)
[2023-05-21 17:17] VITALS: BP 112/65; TEMP 97.7; O2SAT 97
[2023-05-22 19:57] VITALS: BP 134/69
[2023-05-23] MEDS: **PENDING PPD ENTRY XX SCH (09:00)
[2023-05-23] MEDS ORDERED: TUBERCULIN PPD 5 UNITS/0.1 ML ID ONE (11:10)
[2023-05-23 19:48] VITALS: BP 133/73
[2023-05-24 06:44] VITALS: BP 123/74; TEMP 98.4; O2SAT 100
[2023-05-24] MEDS: HALOPERIDOL DECANOATE 100 MG/ML 1ML VIAL IM ONE (12:21)
[2023-05-25 07:03] VITALS: BP 123/84; TEMP 98; O2SAT 98
[2023-05-25] MEDS ORDERED: PPD DOCUMENTATION ENTRY MISC XX SCH (10:00)
[2023-05-26] MEDS: CEPACOL LOZENGE PO PRN (08:07)
[2023-05-26 15:37] VITALS: BP 122/82; TEMP 97.2; O2SAT 98
[2023-05-27 06:38] VITALS: BP 127/72; TEMP 97.3; O2SAT 100
[2023-05-27] MEDS: MAALOX 30 ML SUSP *UDC PO PRN (12:03)
[2023-05-27] MEDS: TUBERCULIN PPD 5 UNITS/0.1 ML ID ONE (15:31)
[2023-05-27 18:30] VITALS: BP 100/68; TEMP 97.6; O2SAT 99
[2023-05-27 21:19] VITALS: BP 131/81
[2023-05-28 06:18] VITALS: BP 129/78; TEMP 99; O2SAT 99
[2023-05-28] MEDS: busPIRone 10 MG TAB PO SCH (08:36)
[2023-05-28] MEDS: HALOPERIDOL DECANOATE 100 MG/ML 1ML VIAL IM ONE (13:08)
[2023-05-28 13:51] LABS: HIV 1&2 SCREEN NEGATIVE (NEGATIVE)
[2023-05-28 15:02] LABS: GC DNA AMPLIFICATION NEGATIVE (NEGATIVE)
[2023-05-29 07:07] LABS: HSV TYPE I IgG SPECIFIC <0.91 index (0.00-0.90); HSV TYPE II IgG SPECIFIC <0.91 index (0.00-0.90)
[2023-05-29] MEDS: BENZTROPINE 1 MG TAB PO SCH (13:48)
[2023-05-29] MEDS: PPD DOCUMENTATION ENTRY MISC XX ONE (15:00)
[2023-05-29 18:30] VITALS: BP 135/78; TEMP 97.2
[2023-05-30 18:08] VITALS: BP 176/70; TEMP 97.5; O2SAT 96
[2023-05-31 16:28] VITALS: BP 138/85; TEMP 97.8; O2SAT 95
[2023-05-31] MEDS: MOM 30ML SUSPENSION UDC PO PRN (18:56)
[2023-06-01 16:24] VITALS: BP 140/73; TEMP 98.1; O2SAT 98
[2023-06-03 06:16] VITALS: BP 105/52; TEMP 97.3; O2SAT 97
[2023-06-03 17:21] VITALS: BP 120/58; TEMP 97.6; O2SAT 98
[2023-06-03] MEDS: BENZTROPINE 1 MG TAB PO SCH (20:13)
[2023-06-04 06:22] VITALS: BP 120/83; TEMP 97.5; O2SAT 99
[2023-06-04] MEDS: guaiFENesin ER TABLET 600 MG TAB PO SCH (16:51)
[2023-06-05 06:28] VITALS: BP 106/69; TEMP 97.1; O2SAT 100
[2023-06-05 16:22] VITALS: BP 123/67; TEMP 98.1; O2SAT 97
[2023-06-06 06:16] VITALS: BP 127/75; TEMP 98.7; O2SAT 98
[2023-06-06 09:00] VITALS: BP 141/79; O2SAT 97
[2023-06-06 17:12] VITALS: BP 125/61; TEMP 97.2; O2SAT 98
[2023-06-07 06:24] VITALS: BP 126/59; TEMP 99.2; O2SAT 99
[2023-06-07 15:10] VITALS: BP 124/57; TEMP 98.1; O2SAT 99
[2023-06-08 06:40] VITALS: BP 143/86; TEMP 97.5; O2SAT 96
[2023-06-08 16:30] VITALS: BP 127/89; TEMP 97.3; O2SAT 97
[2023-06-09 06:34] VITALS: BP 127/65; TEMP 98; O2SAT 97
[2023-06-09 16:31] VITALS: BP 126/72; TEMP 98.5; O2SAT 96
[2023-06-09 19:53] VITALS: BP 149/76
[2023-06-10 17:55] VITALS: BP 133/63; TEMP 97.6; O2SAT 97
[2023-06-11 17:14] VITALS: BP 125/86; TEMP 97.2; O2SAT 96
[2023-06-12 17:14] VITALS: BP 118/64; TEMP 97.4
[2023-06-12 19:30] VITALS: BP 124/60
[2023-06-13 06:22] VITALS: BP 138/77; TEMP 97.5; O2SAT 98
[2023-06-13] MEDS ORDERED: QUET100T2 PO (08:53)
[2023-06-13] MEDS ORDERED: VITAD1000T PO (08:53)
[2023-06-13] MEDS ORDERED: COLA100C5 PO (08:53)
[2023-06-13] MEDS ORDERED: BENZ1TAB5 PO (08:53)
[2023-06-13] MEDS ORDERED: DEPA1TAB3 PO (08:53)
[2023-06-13] MEDS ORDERED: HALO10TA20 PO ×2 (08:53)
[2023-06-13] MEDS ORDERED: BUSP10TA PO (08:53)
[2023-06-13] MEDS ORDERED: DEPA250T32 PO (08:53)
== END 2023-06-13 11:13 | DRG 750 ==
LOC: M ED 22:46 → M ED INP 04-25 13:06 → M PSY 04-25 15:25
PROVIDERS: ADMIT Student in an Organized Health Care Education/Training Program; ATTEND Student in an Organized Health Care Education/Training Program
DX: F20.9 Schizophrenia, unspecified (principal); R45.850 Homicidal ideations; R45.851 Suicidal ideations; F79 Unspecified intellectual disabilities; Z91.148 Patient's other noncompliance with medication regimen for other reason; F43.10 Post-traumatic stress disorder, unspecified; F12.90 Cannabis use, unspecified, uncomplicated; F17.210 Nicotine dependence, cigarettes, uncomplicated; Z88.8 Allergy status to other drugs, medicaments and biological substances; Z79.899 Other long term (current) drug therapy

== ENCOUNTER 2023-10-14 02:25 | Inpatient (IN) | payer OTHER ==
[~2023-10-14] VITALS: Ht 157.5 cm; Wt 81.0 kg
[~2023-10-14 02:25] MED LIST changes: +BENZ1TAB5 PO; +BUSP10TA PO; +DEPA1TAB3 PO; +DEPA250T32 PO; +HALO10TA20 PO; +NICO4GUM47 MT; -OLAN20TA14 PO; +OLAN20TA53 PO; +PANT20TA51 PO; +QUET100T2 PO
[2023-10-14 03:02] LABS: HEMATOCRIT 40.4 % (36.0-47.0); HEMOGLOBIN 13.7 g/dl (12.0-15.5); MEAN CORPUSCULAR HEMOGLOBIN 29.1 pg (27.0-33.0); MEAN CORPUSCULAR HGB CONC 33.9 g/dl (32.0-36.5); PLATELET COUNT, AUTOMATED 229 10^3/uL (150-450); WHITE BLOOD COUNT 11.6 10^3/uL (4.0-10.0)
[2023-10-14 03:27] LABS: ETHYL ALCOHOL (ETHANOL) < 0.003 % (0.000-0.010)
[2023-10-14 03:29] LABS: ALBUMIN 3.9 G/DL (3.2-5.2); ALKALINE PHOSPHATASE 74 U/L (46-116); ALT/SGPT 12 U/L (7.0-40); AST/SGOT 9 U/L (<34); BILIRUBIN,DIRECT < 0.1 MG/DL (<0.4); BILIRUBIN,TOTAL 0.2 MG/DL (0.3-1.2); BLOOD UREA NITROGEN 9 MG/DL (9-23); CALCIUM LEVEL 9.3 MG/DL (8.5-10.1); CARBON DIOXIDE LEVEL 25 MMOL/L (20-31); CHLORIDE LEVEL 109 MMOL/L (98-107); CREATININE FOR GFR 0.74 MG/DL (0.55-1.30); GLOMERULAR FILTRATION RATE > 60.0 (>60); GLUCOSE, FASTING 116 MG/DL (60-100); POTASSIUM SERUM 3.3 MMOL/L (3.5-5.1); SALICYLATE LEVEL < 3.0 MG/DL (<30); SODIUM LEVEL 140 MMOL/L (136-145); TOTAL PROTEIN 6.4 G/DL (5.7-8.2)
[2023-10-14 03:31] LABS: THYROID STIMULATING HORMONE 1.072 uIU/ML (0.55-4.78)
[2023-10-14 04:13] LABS: HCG, SERUM QUALITATIVE NEGATIVE (NEGATIVE)
[2023-10-14 07:14] LABS: AMPHETAMINES LEVEL URINE NEGATIVE (NEGATIVE); BARBITURATES URINE NEGATIVE (NEGATIVE); BENZODIAZEPINES URINE NEGATIVE (NEGATIVE); COCAINE METABOLITE URINE NEGATIVE (NEGATIVE); METHADONE URINE NEGATIVE (NEGATIVE); OPIATES URINE NEGATIVE (NEGATIVE); PHENCYCLIDINE URINE NEGATIVE (NEGATIVE)
[2023-10-14 07:16] LABS: CANNABINOIDS URINE POSITIVE (NEGATIVE)
[2023-10-14] MEDS ORDERED: MOM 30ML SUSPENSION UDC PO PRN (12:30)
[2023-10-14] MEDS ORDERED: OLANZapine ORAL DISINTEGRATING TAB 5MG PO PRN (12:30)
[2023-10-14] MEDS: DIVALPROEX 250MG TAB PO SCH (13:40)
[2023-10-14] MEDS: NICOTINE 21MG/24HR 1 EA TRANSDERMAL TD SCH (13:40)
[2023-10-14] MEDS ORDERED: BUSP10TA PO (14:29)
[2023-10-14] MEDS ORDERED: DIVA250T67 PO (14:29)
[2023-10-14] MEDS ORDERED: DEPA1TAB3 PO (14:29)
[2023-10-14] MEDS ORDERED: DIPH50TA6 PO (14:29)
[2023-10-14] MEDS ORDERED: CETI10CH PO (14:29)
[2023-10-14] MEDS ORDERED: QUET100T2 PO (14:29)
[2023-10-14] MEDS ORDERED: PANT-23 PO (14:29)
[2023-10-14] MEDS ORDERED: INVE234I IM (14:29)
[2023-10-14] MEDS ORDERED: BENZ2TAB48 PO (14:29)
[2023-10-14] MEDS ORDERED: HOME MED LIST COMPLETE! XX SCH (14:45)
[2023-10-14] MEDS: traZODone 50 MG TAB PO PRN (21:40)
[2023-10-15 06:29] VITALS: BP 119/59; TEMP 99.1; O2SAT 99
[2023-10-15] MEDS ORDERED: CETIRIZINE (ZyrTEC) 5 MG/5 ML UDC DYE FREE PO SCH (09:00)
[2023-10-15] MEDS: busPIRone 10 MG TAB PO SCH (09:00)
[2023-10-15] MEDS ORDERED: QUEtiapine FUMARATE 100 MG TAB PO PRN (10:25)
[2023-10-15] MEDS: CETIRIZINE (ZyrTEC) 10 MG TAB PO SCH (13:25)
[2023-10-15] MEDS: VITAMIN D 1,000 INTERNATIONAL UNITS TABLET PO SCH (13:25)
[2023-10-15] MEDS: PANTOPRAZOLE 40MG TAB (PROTONIX) PO SCH (13:26)
[2023-10-15] MEDS: DOCUSATE SODIUM 100MG CAPSULE PO SCH (13:26)
[2023-10-15] MEDS: PALIPERIDONE 3MG ER TAB (INVEGA) PO SCH (13:26)
[2023-10-15] MEDS: BENZTROPINE 2 MG TAB PO SCH (13:26)
[2023-10-15] MEDS: VENLAFAXINE **XR** 37.5 MG CAPSULE PO SCH (13:26)
[2023-10-15] MEDS: VENLAFAXINE **XR** 75MG CAPSULE PO SCH (13:26)
[2023-10-15 15:53] LABS: BASO % 0.4 % (0.0-1.0); EOS # 0.1 10^3/uL (0.0-0.5); EOS % 1.4 % (0.0-3.0); HEMATOCRIT 40.8 % (36.0-47.0); HEMOGLOBIN 13.4 g/dl (12.0-15.5); LYMPH # 2.1 10^3/uL (1.5-5.0); LYMPH % 25.9 % (24.0-44.0); MEAN CORPUSCULAR HEMOGLOBIN 28.5 pg (27.0-33.0); MEAN CORPUSCULAR HGB CONC 32.8 g/dl (32.0-36.5); MEAN CORPUSCULAR VOLUME 86.6 fl (80.0-96.0); MONO # 0.4 10^3/uL (0.0-0.8); NEUTROPHILS # 5.3 10^3/uL (1.5-8.5); PLATELET COUNT, AUTOMATED 202 10^3/uL (150-450); RED BLOOD COUNT 4.71 10^6/uL (4.00-5.40); WHITE BLOOD COUNT 7.9 10^3/uL (4.0-10.0)
[2023-10-15] MEDS: DIVALPROEX 500 MG TAB PO SCH (20:56)
[2023-10-15] MEDS: PRAZOSIN 1 MG CAP PO SCH (21:00)
[2023-10-15] MEDS ORDERED: PRAZOSIN 1 MG CAP PO SCH (21:00)
[2023-10-16 06:25] VITALS: BP 135/74; TEMP 97.4; O2SAT 99
[2023-10-16] MEDS: VENLAFAXINE **XR** 75MG CAPSULE PO SCH (08:34)
[2023-10-16] MEDS: DIVALPROEX 250MG TAB PO SCH (08:34)
[2023-10-16 18:26] VITALS: BP 138/82; TEMP 97.9
[2023-10-16] MEDS: diphenhydrAMINE 25MG CAP PO PRN (20:43)
[2023-10-17 06:53] LABS: CHOLESTEROL RISK RATIO 3.45 (<5); HDL CHOLESTEROL 28.4 MG/DL (>40); LDL CHOLESTEROL 55.6 MG/DL (<100); NON-HDL-C 69.6 MG/DL
[2023-10-17] MEDS: PALIPERIDONE PAL 234MG/1.5ML INJ (INVEGA)(FREE PSY INPT ONLY) IM ONE (08:30)
[2023-10-17] MEDS: PALIPERIDONE 3MG ER TAB (INVEGA) PO SCH (21:29)
[2023-10-18 15:38] VITALS: BP 132/74; TEMP 98; O2SAT 97
[2023-10-19] MEDS: ACETAMINOPHEN TAB 650MG DOSE (2X325MG) PO PRN (11:19)
[2023-10-19 16:42] VITALS: BP 135/71; TEMP 97.8; O2SAT 96
[2023-10-21] MEDS: VENLAFAXINE **XR** 37.5 MG CAPSULE PO SCH (12:40)
[2023-10-21] MEDS: VENLAFAXINE **XR** 75MG CAPSULE PO SCH (12:40)
[2023-10-21 18:42] VITALS: BP 120/61; TEMP 97.6
[2023-10-22] MEDS ORDERED: PALIPERIDONE PAL 156MG/1ML INJ(INVEGA)(FREE PSY INPT ONLY) IM ONE (07:45)
[2023-10-22] MEDS: PALIPERIDONE PAL 156MG/1ML INJ(INVEGA)(FREE PSY INPT ONLY) IM ONE (15:52)
[2023-10-22 17:53] VITALS: BP 120/70; TEMP 98.8
[2023-10-23 18:23] VITALS: BP 117/70; TEMP 97.9
[2023-10-23 21:09] VITALS: BP 118/74
[2023-10-24 06:15] VITALS: BP 120/70; TEMP 98.2; O2SAT 98
[2023-10-24 16:28] VITALS: BP 123/71; TEMP 98.1; O2SAT 99
[2023-10-24 20:21] VITALS: BP 116/67
[2023-10-25] MEDS: MAALOX 30 ML SUSP *UDC PO PRN (00:38)
[2023-10-25 16:20] VITALS: BP 117/68; TEMP 99.1; O2SAT 95
[2023-10-26 06:30] VITALS: BP 113/65; TEMP 98.7; O2SAT 98
[2023-10-26 16:44] VITALS: BP 119/70; TEMP 98.4; O2SAT 95
[2023-10-26] MEDS: LORazepam 1 MG TAB PO PRN (18:09)
[2023-10-27 20:25] VITALS: BP 138/82
[2023-10-27] MEDS: IBUPROFEN 400MG TAB PO PRN (20:26)
[2023-10-28] MEDS ORDERED: ISOVUE-370 76% 100ML VIAL As Ordered ONE (08:45)
[2023-10-28 10:02] LABS: BASO % 0.3 % (0.0-1.0); EOS # 0.1 10^3/uL (0.0-0.5); HEMATOCRIT 37.5 % (36.0-47.0); HEMOGLOBIN 12.9 g/dl (12.0-15.5); LYMPH # 1.5 10^3/uL (1.5-5.0); LYMPH % 15.1 % (24.0-44.0); MEAN CORPUSCULAR HEMOGLOBIN 29.7 pg (27.0-33.0); MEAN CORPUSCULAR HGB CONC 34.4 g/dl (32.0-36.5); MEAN CORPUSCULAR VOLUME 86.4 fl (80.0-96.0); MONO # 0.9 10^3/uL (0.0-0.8); MONO % 8.9 % (2.0-8.0); NEUTROPHILS # 7.3 10^3/uL (1.5-8.5); NEUTROPHILS % 73.9 % (36.0-66.0); PLATELET COUNT, AUTOMATED 203 10^3/uL (150-450); RED BLOOD COUNT 4.34 10^6/uL (4.00-5.40); WHITE BLOOD COUNT 9.9 10^3/uL (4.0-10.0)
[2023-10-28 10:17] LABS: INR 1.07; PARTIAL THROMBOPLASTIN TIME 27.1 SECONDS (24.8-34.2); PROTHROMBIN TIME 13.6 SECONDS (12.5-14.5)
[2023-10-28 10:34] LABS: ALKALINE PHOSPHATASE 62 U/L (46-116); ALT/SGPT < 9 U/L (7.0-40); AST/SGOT < 8 U/L (<34); BILIRUBIN,TOTAL 0.2 MG/DL (0.3-1.2); BLOOD UREA NITROGEN 7 MG/DL (9-23); CALCIUM LEVEL 8.1 MG/DL (8.5-10.1); CARBON DIOXIDE LEVEL 23 MMOL/L (20-31); CHLORIDE LEVEL 106 MMOL/L (98-107); CREATININE FOR GFR 0.63 MG/DL (0.55-1.30); GLOMERULAR FILTRATION RATE > 60.0 (>60); GLUCOSE, FASTING 125 MG/DL (60-100); SODIUM LEVEL 136 MMOL/L (136-145); TOTAL PROTEIN 5.9 G/DL (5.7-8.2)
[2023-10-28] MEDS ORDERED: OLAN5ZYD PO (11:25)
[2023-10-28] MEDS ORDERED: PALI1TAB2 PO (11:25)
== END 2023-10-28 13:20 | disposition short-term general hospital (02) | DRG 750 ==
LOC: M ED 02:25 → M ED INP 12:27 → M PSY 17:08
PROVIDERS: ADMIT Student in an Organized Health Care Education/Training Program; ATTEND Student in an Organized Health Care Education/Training Program
DX: F20.9 Schizophrenia, unspecified (principal); F43.10 Post-traumatic stress disorder, unspecified; F79 Unspecified intellectual disabilities; F12.90 Cannabis use, unspecified, uncomplicated; Z91.148 Patient's other noncompliance with medication regimen for other reason; Z88.8 Allergy status to other drugs, medicaments and biological substances; Z79.899 Other long term (current) drug therapy; F17.200 Nicotine dependence, unspecified, uncomplicated; E55.9 Vitamin D deficiency, unspecified; K21.9 Gastro-esophageal reflux disease without esophagitis; E87.6 Hypokalemia; F17.210 Nicotine dependence, cigarettes, uncomplicated; L03.211 Cellulitis of face

== ENCOUNTER 2023-10-28 11:39 | Inpatient (IN) | payer OTHER ==
[~2023-10-28] VITALS: Ht 157.5 cm; Wt 76.4 kg
[~2023-10-28 11:39] MED LIST changes: +BENZ2TAB48 PO; +CETI10CH PO; +DIPH50TA6 PO; +INVE234I IM; +OLAN5ZYD PO; +PALI1TAB2 PO; +PANT-23 PO
[2023-10-28] MEDS ORDERED: ACETAMINOPHEN TAB 650MG DOSE (2X325MG) PO PRN (11:45)
[2023-10-28 13:30] VITALS: BP 126/87; TEMP 98.6; O2SAT 95
[2023-10-28] MEDS: NS 1,000 ML IV SCH (14:18)
[2023-10-28] MEDS: NICOTINE 21MG/24HR 1 EA TRANSDERMAL TD SCH (14:24)
[2023-10-28] MEDS ORDERED: AMPICILLIN SOD/SULBACTAM SOD 3 GM in D5W MINI-BAG PLUS 100 ML IV SCH (15:00)
[2023-10-28] MEDS: AMPICILLIN SOD/SULBACTAM SOD 3 GM in D5W MINI-BAG PLUS 100 ML IV SCH (15:44)
[2023-10-28] MEDS: busPIRone 10 MG TAB PO SCH (15:46)
[2023-10-28 20:02] VITALS: BP 122/85; TEMP 98.8; O2SAT 97
[2023-10-28] MEDS: PANTOPRAZOLE 40MG TAB (PROTONIX) PO SCH (20:03)
[2023-10-28] MEDS: PALIPERIDONE 3MG ER TAB (INVEGA) PO SCH (20:03)
[2023-10-28] MEDS: QUEtiapine FUMARATE 100 MG TAB PO PRN (20:03)
[2023-10-28] MEDS: DOCUSATE SODIUM 100MG CAPSULE PO SCH (20:03)
[2023-10-28] MEDS: PRAZOSIN 1 MG CAP PO SCH (20:03)
[2023-10-28] MEDS: BENZTROPINE 2 MG TAB PO SCH (20:04)
[2023-10-28] MEDS: DIVALPROEX 500 MG TAB PO SCH (20:04)
[2023-10-28] MEDS ORDERED: PRAZOSIN 1 MG CAP PO SCH (21:00)
[2023-10-29] VITALS (9 sets, daily range): BP systolic 98–119; BP diastolic 58–82; TEMP 97.8–99; O2SAT 93–97
[2023-10-29] MEDS: CALCIUM CARBONATE 500 MG CHEW U/D PO ONE (00:34)
[2023-10-29 07:12] LABS: HEMOGLOBIN 11.7 g/dl (12.0-15.5); MEAN CORPUSCULAR HGB CONC 33.4 g/dl (32.0-36.5); MEAN CORPUSCULAR VOLUME 86.6 fl (80.0-96.0); PLATELET COUNT, AUTOMATED 213 10^3/uL (150-450); RED BLOOD COUNT 4.04 10^6/uL (4.00-5.40); WHITE BLOOD COUNT 10.5 10^3/uL (4.0-10.0)
[2023-10-29 07:41] LABS: BLOOD UREA NITROGEN 7 MG/DL (9-23); CALCIUM LEVEL 8.8 MG/DL (8.5-10.1); CARBON DIOXIDE LEVEL 26 MMOL/L (20-31); CHLORIDE LEVEL 108 MMOL/L (98-107); CREATININE FOR GFR 0.51 MG/DL (0.55-1.30); GLOMERULAR FILTRATION RATE > 60.0 (>60); GLUCOSE, FASTING 101 MG/DL (60-100); MAGNESIUM LEVEL 1.9 MG/DL (1.8-2.4); POTASSIUM SERUM 4.2 MMOL/L (3.5-5.1); SODIUM LEVEL 139 MMOL/L (136-145)
[2023-10-29 08:00] LABS: HEMOGLOBIN A1c 5.3 % (4.0-6.0)
[2023-10-29] MEDS: VITAMIN D 1,000 INTERNATIONAL UNITS TABLET PO SCH (08:17)
[2023-10-29] MEDS: CETIRIZINE (ZyrTEC) 10 MG TAB PO SCH (08:17)
[2023-10-29] MEDS: DIVALPROEX 250MG TAB PO SCH (08:17)
[2023-10-29] MEDS: VENLAFAXINE **XR** 37.5 MG CAPSULE PO SCH (08:18)
[2023-10-29] MEDS ORDERED: SUGAMMADEX SODIUM 500 MG/5 ML VIAL (BRIDION) As Ordered ONE (13:23)
[2023-10-29] MEDS ORDERED: ONDANSETRON 4MG 2ML VIAL As Ordered ONE (13:23)
[2023-10-29] MEDS ORDERED: LIDOCAINE 2% 100MG/5ML SDV (FOR ANES.) As Ordered ONE (13:23)
[2023-10-29] MEDS ORDERED: KETOROLAC 60MG 2ML VIAL As Ordered ONE (13:23)
[2023-10-29] MEDS ORDERED: ROCURONIUM BROMIDE 50MG/5ML VIAL As Ordered ONE (13:23)
[2023-10-29] MEDS ORDERED: propofoL 200 MG/20 ML VIAL As Ordered ONE (13:23)
[2023-10-29] MEDS ORDERED: ACETAMINOPHEN 1000MG 100ML IV BAG As Ordered ONE (13:23)
[2023-10-29] MEDS ORDERED: MIDAZOLAM INJ 2MG/2ML VIAL As Ordered ONE (16:30)
[2023-10-29] MEDS ORDERED: fentaNYL 100 MCG/2 ML INJECTION As Ordered ONE (16:30)
[2023-10-29] MEDS: UNASYN 3GM VIAL As Ordered ONE (16:52)
[2023-10-29] MEDS: LIDOCAINE 2% W/ EPINEPHRINE 1.7 ML DENTAL INJ As Ordered ONE (17:07)
[2023-10-29] MEDS: OLANZapine ORAL DISINTEGRATING TAB 5MG PO PRN (20:29)
[2023-10-30 03:03] VITALS: BP 116/75; TEMP 98.1; O2SAT 98
[2023-10-30 08:00] VITALS: BP 110/66; TEMP 98.1; O2SAT 97
[2023-10-30] MEDS: ENOXAPARIN 40MG/0.4ML SYRINGE (J1650 PER 10MG) SC SCH (08:55)
[2023-10-30] MEDS ORDERED: AMOX875T2 PO (11:09)
[2023-10-30 12:00] VITALS: BP 113/67; TEMP 98.1; O2SAT 97
[2023-10-30] MEDS: CALCIUM CARBONATE 500 MG CHEW U/D PO PRN (12:06)
[2023-10-30 16:00] VITALS: BP 114/70; TEMP 98.6; O2SAT 97
== END 2023-10-30 18:24 | DRG 364 ==
LOC: M MSPAV 13:35
PROVIDERS: ADMIT Psychiatry & Neurology Psychiatry; ATTEND Internal Medicine
PROC: 0W950ZZ Drainage of Lower Jaw, Open Approach (ICD-10-PCS; 2023-10-29)
PROC: 0CTX0Z1 Resection of Lower Tooth, Multiple, Open Approach (ICD-10-PCS; principal; 2023-10-29 16:00)
DX: L03.211 Cellulitis of face (principal); E55.9 Vitamin D deficiency, unspecified; F43.10 Post-traumatic stress disorder, unspecified; F79 Unspecified intellectual disabilities; F17.200 Nicotine dependence, unspecified, uncomplicated; F39 Unspecified mood [affective] disorder; K02.9 Dental caries, unspecified; Z88.8 Allergy status to other drugs, medicaments and biological substances; Z79.899 Other long term (current) drug therapy; K21.9 Gastro-esophageal reflux disease without esophagitis; F12.90 Cannabis use, unspecified, uncomplicated

== ENCOUNTER 2023-10-30 15:40 | Inpatient (IN) | payer OTHER ==
[~2023-10-30] VITALS: Ht 152.4 cm; Wt 78.5 kg
[~2023-10-30 15:40] MED LIST changes: +AMOX875T2 PO
[2023-10-30] MEDS ORDERED: QUEtiapine FUMARATE 100 MG TAB PO PRN (15:45)
[2023-10-30] MEDS ORDERED: MOM 30ML SUSPENSION UDC PO PRN (15:45)
[2023-10-30] MEDS ORDERED: IBUPROFEN 400MG TAB PO PRN (15:45)
[2023-10-30] MEDS ORDERED: ACETAMINOPHEN TAB 650MG DOSE (2X325MG) PO PRN (15:45)
[2023-10-30 18:52] VITALS: BP 133/74; TEMP 98.5; O2SAT 98
[2023-10-30] MEDS: MAALOX 30 ML SUSP *UDC PO PRN (20:11)
[2023-10-30] MEDS: diphenhydrAMINE 25MG CAP PO PRN (20:11)
[2023-10-30] MEDS: traZODone 50 MG TAB PO PRN (20:11)
[2023-10-30] MEDS: busPIRone 10 MG TAB PO SCH (20:12)
[2023-10-30] MEDS: AUGMENTIN 875 MG TAB PO SCH (20:12)
[2023-10-30] MEDS: PANTOPRAZOLE 40MG TAB (PROTONIX) PO SCH (20:12)
[2023-10-30] MEDS: DIVALPROEX 500 MG TAB PO SCH (20:12)
[2023-10-30] MEDS: DOCUSATE SODIUM 100MG CAPSULE PO SCH (20:12)
[2023-10-30] MEDS: PALIPERIDONE 3MG ER TAB (INVEGA) PO SCH (20:12)
[2023-10-30] MEDS: PRAZOSIN 1 MG CAP PO SCH (20:13)
[2023-10-30] MEDS: BENZTROPINE 2 MG TAB PO SCH (20:14)
[2023-10-30] MEDS ORDERED: diphenhydrAMINE 50MG CAP PO SCH (21:00)
[2023-10-31] MEDS: VITAMIN D 1,000 INTERNATIONAL UNITS TABLET PO SCH (08:44)
[2023-10-31] MEDS: DIVALPROEX 250MG TAB PO SCH (08:44)
[2023-10-31] MEDS: VENLAFAXINE **XR** 37.5 MG CAPSULE PO SCH (08:44)
[2023-10-31] MEDS: CETIRIZINE (ZyrTEC) 10 MG TAB PO SCH (08:45)
[2023-10-31 19:00] VITALS: BP 137/77; TEMP 97.8; O2SAT 100
[2023-10-31 19:48] VITALS: BP 138/86
[2023-11-01] MEDS ORDERED: BENZTROPINE 2 MG TAB As Ordered ONE (08:22)
[2023-11-01] MEDS ORDERED: VITAMIN D 1,000 INTERNATIONAL UNITS TABLET As Ordered ONE (08:22)
[2023-11-01] MEDS ORDERED: VENLAFAXINE **XR** 37.5 MG CAPSULE As Ordered ONE (08:23)
[2023-11-01] MEDS ORDERED: PANTOPRAZOLE 40MG TAB (PROTONIX) As Ordered ONE (08:23)
[2023-11-01] MEDS ORDERED: busPIRone 10 MG TAB As Ordered ONE (08:23)
[2023-11-01] MEDS ORDERED: CETIRIZINE (ZyrTEC) 10 MG TAB As Ordered ONE (08:23)
[2023-11-01] MEDS ORDERED: DOCUSATE SODIUM 100MG CAPSULE As Ordered ONE (08:24)
[2023-11-01] MEDS ORDERED: DIVALPROEX 250MG TAB As Ordered ONE (08:25)
[2023-11-01] MEDS ORDERED: PRAZ1CAP PO (13:06)
[2023-11-01] MEDS ORDERED: CETI10CH PO (13:06)
[2023-11-01] MEDS ORDERED: BUSP10TA PO (13:06)
[2023-11-01] MEDS ORDERED: PRAZ2CAP PO (13:06)
[2023-11-01] MEDS ORDERED: BENZ2TAB48 PO (13:06)
[2023-11-01] MEDS ORDERED: QUET100T2 PO (13:06)
[2023-11-01] MEDS ORDERED: DIVA250T67 PO (13:06)
[2023-11-01] MEDS ORDERED: VENL150C43 PO (13:06)
[2023-11-01] MEDS ORDERED: INVE234I IM (13:15)
[2023-11-29] MEDS ORDERED: PALIPERIDONE PAL 234MG/1.5ML INJ (INVEGA)(FREE PSY INPT ONLY) IM SCH (09:00)
== END 2023-11-01 13:18 | disposition home or self-care (01) | DRG 750 ==
LOC: M PSY 18:27
PROVIDERS: ADMIT Student in an Organized Health Care Education/Training Program; ATTEND Student in an Organized Health Care Education/Training Program
DX: F20.9 Schizophrenia, unspecified (principal); F43.10 Post-traumatic stress disorder, unspecified; F12.90 Cannabis use, unspecified, uncomplicated; F17.200 Nicotine dependence, unspecified, uncomplicated; F79 Unspecified intellectual disabilities; E55.9 Vitamin D deficiency, unspecified; K21.9 Gastro-esophageal reflux disease without esophagitis; Z91.148 Patient's other noncompliance with medication regimen for other reason; Z62.810 Personal history of physical and sexual abuse in childhood; Z79.899 Other long term (current) drug therapy; Z88.8 Allergy status to other drugs, medicaments and biological substances

== ENCOUNTER 2023-12-11 04:44 | Inpatient (IN) | payer OTHER, MEDICAID ==
[~2023-12-11 04:44] MED LIST changes: -ARIP1TAB43 PO; +ARIP20TA51 PO
[2023-12-11 05:49] LABS: HEMATOCRIT 40.2 % (36.0-47.0); HEMOGLOBIN 13.5 g/dl (12.0-15.5); MEAN CORPUSCULAR HEMOGLOBIN 29.6 pg (27.0-33.0); MEAN CORPUSCULAR HGB CONC 33.6 g/dl (32.0-36.5); MEAN CORPUSCULAR VOLUME 88.2 fl (80.0-96.0); PLATELET COUNT, AUTOMATED 230 10^3/uL (150-450); RED BLOOD COUNT 4.56 10^6/uL (4.00-5.40); WHITE BLOOD COUNT 8.3 10^3/uL (4.0-10.0)
[2023-12-11 06:05] LABS: ETHYL ALCOHOL (ETHANOL) < 0.003 % (0.000-0.010); SALICYLATE LEVEL < 3.0 MG/DL (<30)
[2023-12-11 06:06] LABS: ALKALINE PHOSPHATASE 72 U/L (46-116); ALT/SGPT 11 U/L (7.0-40); AST/SGOT 12 U/L (<34); BILIRUBIN,DIRECT 0.1 MG/DL (<0.4); BILIRUBIN,TOTAL 0.3 MG/DL (0.3-1.2); BLOOD UREA NITROGEN 7 MG/DL (9-23); CALCIUM LEVEL 9.7 MG/DL (8.5-10.1); CARBON DIOXIDE LEVEL 22 MMOL/L (20-31); CHLORIDE LEVEL 113 MMOL/L (98-107); CREATININE FOR GFR 0.83 MG/DL (0.55-1.30); GLOMERULAR FILTRATION RATE > 60.0 (>60); GLUCOSE, FASTING 134 MG/DL (60-100); POTASSIUM SERUM 3.5 MMOL/L (3.5-5.1); SODIUM LEVEL 142 MMOL/L (136-145)
[2023-12-11 06:08] LABS: THYROID STIMULATING HORMONE 0.556 uIU/ML (0.55-4.78)
[2023-12-11 06:11] LABS: HCG, SERUM QUALITATIVE NEGATIVE (NEGATIVE)
[2023-12-11] MEDS ORDERED: INVE3TAB2 PO (11:51)
[2023-12-11] MEDS ORDERED: CETI10CH PO (11:59)
[2023-12-11] MEDS ORDERED: HOME MED LIST COMPLETE! XX SCH (12:00)
[2023-12-11 14:27] LABS: AMPHETAMINES LEVEL URINE NEGATIVE (NEGATIVE); BARBITURATES URINE NEGATIVE (NEGATIVE); BENZODIAZEPINES URINE NEGATIVE (NEGATIVE); COCAINE METABOLITE URINE NEGATIVE (NEGATIVE); METHADONE URINE NEGATIVE (NEGATIVE)
[2023-12-11 14:28] LABS: OPIATES URINE NEGATIVE (NEGATIVE); PHENCYCLIDINE URINE NEGATIVE (NEGATIVE)
[2023-12-11 14:30] LABS: CANNABINOIDS URINE POSITIVE (NEGATIVE)
[2023-12-11] MEDS ORDERED: traZODone 50 MG TAB PO PRN (14:50)
[2023-12-11] MEDS ORDERED: ACETAMINOPHEN TAB 650MG DOSE (2X325MG) PO PRN (14:50)
[2023-12-11] MEDS ORDERED: IBUPROFEN 400MG TAB PO PRN (14:50)
[2023-12-11] MEDS ORDERED: MOM 30ML SUSPENSION UDC PO PRN (14:50)
[2023-12-11] MEDS ORDERED: MAALOX 30 ML SUSP *UDC PO PRN (14:50)
[2023-12-12] MEDS: diphenhydrAMINE 25MG CAP PO PRN (11:00)
[2023-12-12] MEDS: BENZTROPINE 2 MG TAB PO SCH (12:20)
[2023-12-12] MEDS: DIVALPROEX 250MG TAB PO SCH (12:20)
[2023-12-12] MEDS: VENLAFAXINE **XR** 37.5 MG CAPSULE PO SCH (12:20)
[2023-12-12] MEDS: busPIRone 10 MG TAB PO SCH (12:20)
[2023-12-12] MEDS: PANTOPRAZOLE 40MG TAB (PROTONIX) PO SCH (12:20)
[2023-12-12] MEDS: DOCUSATE SODIUM 100MG CAPSULE PO SCH (12:20)
[2023-12-12] MEDS: DIVALPROEX 500 MG TAB PO SCH (20:29)
[2023-12-12] MEDS: PRAZOSIN 1 MG CAP PO SCH (20:30)
[2023-12-12] MEDS: PALIPERIDONE 3MG ER TAB (INVEGA) PO SCH (20:30)
[2023-12-12] MEDS: CETIRIZINE (ZyrTEC) 10 MG TAB PO SCH (20:30)
[2023-12-12] MEDS: LORazepam 2 MG TAB PO PRN (21:56)
[2023-12-12] MEDS: QUEtiapine FUMARATE 100 MG TAB PO PRN (22:23)
[2023-12-13] MEDS: VITAMIN D 1,000 INTERNATIONAL UNITS TABLET PO SCH (09:15)
[2023-12-13] MEDS: BACITRACIN OINTMENT 30GM TUBE TOP PRN (10:24)
[2023-12-13] MEDS: LORazepam 2 MG TAB PO STA (14:53)
[2023-12-13 15:52] VITALS: BP 144/70; TEMP 97.5; O2SAT 97
[2023-12-14 08:38] VITALS: BP 147/73; TEMP 96.8; O2SAT 98
[2023-12-14 15:33] VITALS: BP 142/80; TEMP 98; O2SAT 97
[2023-12-16 15:40] VITALS: BP 127/81; TEMP 97.3; O2SAT 97
[2023-12-17 19:38] VITALS: BP 125/68
[2023-12-18 06:38] VITALS: BP 130/60; TEMP 98.1; O2SAT 98
[2023-12-18] MEDS ORDERED: DIVA250T67 PO (08:34)
[2023-12-18] MEDS ORDERED: BACI50OI TOP (08:34)
[2023-12-18] MEDS ORDERED: INVE234I IM (08:34)
[2023-12-18] MEDS: PALIPERIDONE PAL 234MG/1.5ML INJ (INVEGA)(FREE PSY INPT ONLY) IM ONE (09:47)
== END 2023-12-18 12:24 | disposition home or self-care (01) | DRG 750 ==
LOC: M ED 04:44 → M ED INP 14:50 → M PSY 16:01
PROVIDERS: ADMIT Psychiatry & Neurology Child & Adolescent Psychiatry; ATTEND Psychiatry & Neurology Child & Adolescent Psychiatry
DX: F20.9 Schizophrenia, unspecified (principal); F79 Unspecified intellectual disabilities; R45.851 Suicidal ideations; Z91.148 Patient's other noncompliance with medication regimen for other reason; F43.10 Post-traumatic stress disorder, unspecified; F12.90 Cannabis use, unspecified, uncomplicated; Z88.8 Allergy status to other drugs, medicaments and biological substances; Z79.899 Other long term (current) drug therapy

== ENCOUNTER 2024-01-31 04:58 | Inpatient (IN) | payer MEDICAID, OTHER ==
[~2024-01-31] VITALS: Ht 160 cm; Wt 72.7 kg
[~2024-01-31 04:58] MED LIST changes: -ARIP10TA32 PO; +ARIP10TA63 PO; +BACI50OI TOP; +INVE3TAB2 PO; -SENN-111 PO; +SENN-165 PO
[2024-01-31 08:28] LABS: HEMATOCRIT 37.6 % (36.0-47.0); HEMOGLOBIN 12.5 g/dl (12.0-15.5); MEAN CORPUSCULAR HEMOGLOBIN 29.1 pg (27.0-33.0); MEAN CORPUSCULAR HGB CONC 33.2 g/dl (32.0-36.5); MEAN CORPUSCULAR VOLUME 87.6 fl (80.0-96.0); PLATELET COUNT, AUTOMATED 240 10^3/uL (150-450); RED BLOOD COUNT 4.29 10^6/uL (4.00-5.40); WHITE BLOOD COUNT 8.5 10^3/uL (4.0-10.0)
[2024-01-31 08:44] LABS: ETHYL ALCOHOL (ETHANOL) < 0.003 % (0.000-0.010); VALPROIC ACID (DEPAKOTE) < 3.0 UG/ML (50.0-100.0)
[2024-01-31 08:46] LABS: SALICYLATE LEVEL < 3.0 MG/DL (<30)
[2024-01-31 08:47] LABS: THYROID STIMULATING HORMONE 0.526 uIU/ML (0.55-4.78)
[2024-01-31 08:49] LABS: ALBUMIN 3.2 G/DL (3.2-5.2); ALKALINE PHOSPHATASE 68 U/L (46-116); ALT/SGPT < 9 U/L (7.0-40); AST/SGOT < 8 U/L (<34); BILIRUBIN,DIRECT < 0.1 MG/DL (<0.4); BILIRUBIN,TOTAL 0.2 MG/DL (0.3-1.2); BLOOD UREA NITROGEN < 5 MG/DL (9-23); CALCIUM LEVEL 9.2 MG/DL (8.5-10.1); CARBON DIOXIDE LEVEL 24 MMOL/L (20-31); CHLORIDE LEVEL 114 MMOL/L (98-107); CREATININE FOR GFR 0.68 MG/DL (0.55-1.30); GLOMERULAR FILTRATION RATE > 60.0 (>60); GLUCOSE, FASTING 93 MG/DL (60-100); POTASSIUM SERUM 4.1 MMOL/L (3.5-5.1); SODIUM LEVEL 142 MMOL/L (136-145)
[2024-01-31 09:02] LABS: HCG, SERUM QUALITATIVE NEGATIVE (NEGATIVE)
[2024-01-31 11:05] LABS: AMPHETAMINES LEVEL URINE NEGATIVE (NEGATIVE); BARBITURATES URINE NEGATIVE (NEGATIVE); BENZODIAZEPINES URINE NEGATIVE (NEGATIVE)
[2024-01-31 11:06] LABS: CANNABINOIDS URINE POSITIVE (NEGATIVE); COCAINE METABOLITE URINE NEGATIVE (NEGATIVE); METHADONE URINE NEGATIVE (NEGATIVE); OPIATES URINE NEGATIVE (NEGATIVE); PHENCYCLIDINE URINE NEGATIVE (NEGATIVE)
[2024-01-31] MEDS ORDERED: MAALOX 30 ML SUSP *UDC PO PRN (13:10)
[2024-01-31] MEDS ORDERED: IBUPROFEN 400MG TAB PO PRN (13:10)
[2024-01-31] MEDS ORDERED: ACETAMINOPHEN 325 MG TAB PO PRN (13:10)
[2024-01-31] MEDS ORDERED: MOM 30ML SUSPENSION UDC PO PRN (13:10)
[2024-01-31 15:05] VITALS: BP 121/65; TEMP 96.9; O2SAT 95
[2024-01-31] MEDS ORDERED: HOME MED LIST COMPLETE! XX SCH (16:10)
[2024-02-01] MEDS: NICOTINE 21MG/24HR 1 EA TRANSDERMAL TD SCH (11:13)
[2024-02-01] MEDS: VENLAFAXINE 37.5 MG TAB PO SCH (11:13)
[2024-02-01 15:24] VITALS: BP 140/85; TEMP 97; O2SAT 95
[2024-02-01] MEDS: LORazepam 1 MG TAB PO PRN (17:46)
[2024-02-01] MEDS: diphenhydrAMINE 25MG CAP PO PRN (20:41)
[2024-02-01] MEDS: traZODone 50 MG TAB PO PRN (20:41)
[2024-02-01] MEDS: risperiDONE 2 MG TAB PO SCH (20:41)
[2024-02-03 14:30] VITALS: BP 121/72; TEMP 98; O2SAT 97
[2024-02-04] MEDS ORDERED: BENZTROPINE 2 MG TAB PO PRN (07:30)
[2024-02-04] MEDS: DOCUSATE SODIUM 100MG CAPSULE PO SCH (08:43)
[2024-02-04] MEDS: PALIPERIDONE PAL 234MG/1.5ML INJ (INVEGA)(FREE PSY INPT ONLY) IM ONE (16:05)
[2024-02-04 16:57] VITALS: BP 147/63; TEMP 98.1
[2024-02-04] MEDS: DIVALPROEX 250MG TAB PO SCH (20:07)
[2024-02-05] MEDS ORDERED: VENL37TA PO (08:59)
[2024-02-05] MEDS ORDERED: RISP2TAB32 PO (08:59)
== END 2024-02-05 12:55 | disposition home or self-care (01) | DRG 750 ==
LOC: M ED 04:58 → M ED INP 13:09 → M PSY 14:55
PROVIDERS: ADMIT Psychiatry & Neurology Psychiatry; ATTEND Psychiatry & Neurology Psychiatry
DX: F25.9 Schizoaffective disorder, unspecified (principal); F43.10 Post-traumatic stress disorder, unspecified; F17.210 Nicotine dependence, cigarettes, uncomplicated; Z79.899 Other long term (current) drug therapy; Z88.8 Allergy status to other drugs, medicaments and biological substances

== ENCOUNTER 2024-02-12 14:45 | Inpatient (IN) | payer MEDICAID, OTHER ==
[~2024-02-12] VITALS: Ht 154.9 cm; Wt 69.3 kg
[~2024-02-12 14:45] MED LIST changes: +RISP2TAB32 PO; +VENL37TA PO
[2024-02-12 15:41] LABS: HEMATOCRIT 40.1 % (36.0-47.0); HEMOGLOBIN 13.3 g/dl (12.0-15.5); MEAN CORPUSCULAR HEMOGLOBIN 29.5 pg (27.0-33.0); MEAN CORPUSCULAR HGB CONC 33.2 g/dl (32.0-36.5); MEAN CORPUSCULAR VOLUME 88.9 fl (80.0-96.0); PLATELET COUNT, AUTOMATED 211 10^3/uL (150-450); RED BLOOD COUNT 4.51 10^6/uL (4.00-5.40); WHITE BLOOD COUNT 8.3 10^3/uL (4.0-10.0)
[2024-02-12 16:02] LABS: ETHYL ALCOHOL (ETHANOL) 0.005 % (0.000-0.010)
[2024-02-12] MEDS ORDERED: RISP-106 PO (16:02)
[2024-02-12] MEDS ORDERED: VENL37TA PO (16:02)
[2024-02-12] MEDS ORDERED: DIVA250T67 PO (16:02)
[2024-02-12 16:03] LABS: SALICYLATE LEVEL < 3.0 MG/DL (<30)
[2024-02-12] MEDS ORDERED: HOME MED LIST COMPLETE! XX SCH (16:05)
[2024-02-12 16:10] LABS: HCG, SERUM QUALITATIVE NEGATIVE (NEGATIVE)
[2024-02-12 16:12] LABS: ALBUMIN 3.6 G/DL (3.2-5.2); ALKALINE PHOSPHATASE 67 U/L (35-104); ALT/SGPT 10 U/L (7.0-40); AST/SGOT 33 U/L (<34); BILIRUBIN,DIRECT < 0.1 MG/DL (<0.4); BILIRUBIN,TOTAL < 0.2 MG/DL (0.3-1.2); BLOOD UREA NITROGEN 7 MG/DL (9-23); CALCIUM LEVEL 9.3 MG/DL (8.5-10.1); CARBON DIOXIDE LEVEL 22 MMOL/L (20-31); CHLORIDE LEVEL 112 MMOL/L (98-107); CREATININE FOR GFR 0.67 MG/DL (0.55-1.30); GLOMERULAR FILTRATION RATE > 60.0 (>60); GLUCOSE, FASTING 139 MG/DL (60-100); POTASSIUM SERUM 5.3 MMOL/L (3.5-5.1); SODIUM LEVEL 140 MMOL/L (136-145); THYROID STIMULATING HORMONE 0.805 uIU/ML (0.55-4.78); TOTAL PROTEIN 6.9 G/DL (5.7-8.2)
[2024-02-12 18:32] LABS: AMPHETAMINES LEVEL URINE NEGATIVE (NEGATIVE); BARBITURATES URINE NEGATIVE (NEGATIVE); BENZODIAZEPINES URINE NEGATIVE (NEGATIVE); COCAINE METABOLITE URINE NEGATIVE (NEGATIVE); METHADONE URINE NEGATIVE (NEGATIVE); OPIATES URINE NEGATIVE (NEGATIVE); PHENCYCLIDINE URINE NEGATIVE (NEGATIVE)
[2024-02-12 18:37] LABS: CANNABINOIDS URINE POSITIVE (NEGATIVE)
[2024-02-13] MEDS: OLANZapine ORAL DISINTEGRATING TAB 5MG PO ONE (12:46)
[2024-02-13] MEDS ORDERED: ACETAMINOPHEN 325 MG TAB PO PRN (13:35)
[2024-02-13] MEDS ORDERED: OLANZapine ORAL DISINTEGRATING TAB 5MG PO PRN (13:35)
[2024-02-13 14:25] VITALS: BP 140/65; TEMP 96.8; O2SAT 97
[2024-02-13 14:26] VITALS: BP 140/65; TEMP 96.8; O2SAT 97
[2024-02-13] MEDS: busPIRone 10 MG TAB PO SCH (15:32)
[2024-02-13 16:30] VITALS: BP 140/65; TEMP 96.8; O2SAT 97
[2024-02-13] MEDS: VENLAFAXINE 37.5 MG TAB PO SCH (20:23)
[2024-02-13] MEDS: risperiDONE 2 MG TAB PO SCH (20:23)
[2024-02-13] MEDS: DIVALPROEX 250MG TAB PO SCH (20:23)
[2024-02-13] MEDS: PRAZOSIN 1 MG CAP PO SCH (20:23)
[2024-02-13] MEDS: DOCUSATE SODIUM 100MG CAPSULE PO SCH (20:23)
[2024-02-13] MEDS ORDERED: PRAZOSIN 1 MG CAP PO SCH (21:00)
[2024-02-14] MEDS: diphenhydrAMINE 25MG CAP PO PRN (08:53)
[2024-02-14] MEDS: LORazepam 2 MG TAB PO PRN (09:12)
[2024-02-14 12:39] LABS: BLOOD UREA NITROGEN 5 MG/DL (9-23); CALCIUM LEVEL 9.2 MG/DL (8.5-10.1); CARBON DIOXIDE LEVEL 24 MMOL/L (20-31); CHLORIDE LEVEL 108 MMOL/L (98-107); CREATININE FOR GFR 0.75 MG/DL (0.55-1.30); GLOMERULAR FILTRATION RATE > 60.0 (>60); GLUCOSE, FASTING 101 MG/DL (60-100); POTASSIUM SERUM 4.1 MMOL/L (3.5-5.1); SODIUM LEVEL 136 MMOL/L (136-145)
[2024-02-14 14:55] VITALS: BP 127/79; TEMP 98.2; O2SAT 97
[2024-02-14] MEDS: diphenhydrAMINE 50MG CAP PO PRN (15:23)
[2024-02-14] MEDS: MAALOX 30 ML SUSP *UDC PO PRN (18:53)
[2024-02-14] MEDS: traZODone 50 MG TAB PO PRN (22:20)
[2024-02-14] MEDS: IBUPROFEN 400MG TAB PO PRN (22:21)
[2024-02-16 15:30] VITALS: BP 106/54; TEMP 98.2; O2SAT 97
[2024-02-17] MEDS: VENLAFAXINE **XR** 75MG CAPSULE PO SCH (09:45)
[2024-02-17 16:45] VITALS: BP 123/68; TEMP 97.6; O2SAT 98
[2024-02-17] MEDS: risperiDONE 3 MG TAB PO SCH (22:36)
[2024-02-18 16:19] VITALS: BP 134/83; TEMP 97.6; O2SAT 97
[2024-02-19 15:08] VITALS: BP 122/73; TEMP 98.1; O2SAT 98
[2024-02-21 15:31] VITALS: BP 138/67; TEMP 97.6; O2SAT 96
[2024-02-22 16:02] VITALS: BP 125/61; TEMP 97.6; O2SAT 96
[2024-02-23 15:34] VITALS: BP 116/72; TEMP 97.7; O2SAT 97
[2024-02-26 06:34] VITALS: BP 122/64; TEMP 97.6; O2SAT 99
[2024-02-26] MEDS ORDERED: LORazepam 2 MG/ML 1ML VIAL IM STA (17:11)
[2024-02-26] MEDS ORDERED: HALOPERIDOL LACTATE 5MG/ML VIAL IM STA (17:11)
[2024-02-27 09:00] VITALS: BP 145/79; TEMP 96.5; O2SAT 98
[2024-02-27] MEDS: HALOPERIDOL LACTATE 5MG/ML VIAL IM STA (09:17)
[2024-02-27] MEDS: LORazepam 2 MG/ML 1ML VIAL IM STA (09:17)
[2024-02-27] MEDS: diphenhydrAMINE 50MG/ML VIAL IM STA (09:18)
[2024-02-27 10:45] VITALS: BP 109/55; TEMP 97.3; O2SAT 98
[2024-02-27 12:18] LABS: HEPATITIS B SURFACE ANTIGEN NEGATIVE (NEGATIVE)
[2024-02-27 12:31] LABS: HIV SCREEN CENTAUR SOURCE NEGATIVE (NEGATIVE)
[2024-02-28 15:04] VITALS: BP 123/68; TEMP 97.3; O2SAT 97
[2024-02-29 14:58] VITALS: BP 112/78; TEMP 97.9; O2SAT 100
[2024-03-01 15:24] VITALS: BP 116/58; TEMP 97.8; O2SAT 96
[2024-03-02] MEDS: MOM 30ML SUSPENSION UDC PO PRN (11:09)
[2024-03-02 15:44] VITALS: BP 113/63; TEMP 97.9; O2SAT 98
[2024-03-03] MEDS: PALIPERIDONE PAL 234MG/1.5ML INJ (INVEGA)(FREE PSY INPT ONLY) IM ONE (08:34)
[2024-03-03] MEDS: diphenhydrAMINE 50MG CAP PO SCH (13:25)
[2024-03-04] MEDS: BENZTROPINE 2 MG TAB PO PRN (10:09)
[2024-03-04 15:58] VITALS: BP 145/92; TEMP 97.9; O2SAT 99
[2024-03-05 14:55] VITALS: BP 141/77; TEMP 97.7; O2SAT 96
[2024-03-08 16:07] VITALS: BP 135/66; TEMP 97.4; O2SAT 99
[2024-03-14 15:30] VITALS: BP 132/64; TEMP 97.8; O2SAT 100
[2024-03-16 15:41] VITALS: BP 118/88; TEMP 97.3; O2SAT 98
[2024-03-17] MEDS ORDERED: BENZTROPINE 0.5 MG TAB PO PRN (10:05)
[2024-03-17] MEDS: DIVALPROEX 250MG *ER* TAB PO SCH (20:11)
[2024-03-18] MEDS: VENLAFAXINE **XR** 75MG CAPSULE PO SCH (10:18)
[2024-03-18 16:22] VITALS: BP 135/81; TEMP 97.6; O2SAT 97
[2024-03-19] MEDS: **PENDING PPD ENTRY XX SCH (09:00)
[2024-03-19] MEDS ORDERED: TUBERCULIN PPD 5 UNITS/0.1 ML ID ONE (11:40)
[2024-03-19] MEDS: DIVALPROEX 500MG *ER* TAB PO SCH (19:21)
[2024-03-21] MEDS ORDERED: PPD DOCUMENTATION ENTRY MISC XX SCH (10:00)
[2024-03-23 06:25] VITALS: BP 124/64; TEMP 97.8; O2SAT 97
[2024-03-23] MEDS: BENZTROPINE 0.5 MG TAB PO SCH (10:51)
[2024-03-23] MEDS ORDERED: BENZTROPINE 1 MG TAB PO SCH (11:20)
[2024-03-23 15:38] VITALS: BP 128/62; TEMP 97.1; O2SAT 96
[2024-03-23] MEDS: BENZTROPINE 1 MG TAB PO SCH (19:27)
[2024-03-24 16:21] VITALS: BP 115/72; TEMP 98; O2SAT 97
[2024-03-24] MEDS: traZODone 100 MG TAB PO PRN (20:09)
[2024-03-24 20:10] VITALS: BP 122/78
[2024-03-25] MEDS ORDERED: INVE234I IM (11:36)
[2024-03-25] MEDS ORDERED: DEPA500T2 PO (11:36)
[2024-03-25] MEDS ORDERED: VENL75CA47 PO (11:36)
[2024-03-25] MEDS ORDERED: TRAZ-257 PO (11:36)
[2024-03-26] MEDS ORDERED: PROT1TAB2 PO (09:57)
[2024-03-26] MEDS ORDERED: D 1010004 PO (09:57)
[2024-03-26] MEDS ORDERED: BANO25TA PO (09:57)
== END 2024-03-25 12:59 | disposition home or self-care (01) | DRG 750 ==
LOC: M ED 14:45 → M ED INP 02-13 13:31 → M PSY 02-13 14:13
PROVIDERS: ADMIT Psychiatry & Neurology Psychiatry; ATTEND Psychiatry & Neurology Psychiatry
DX: F20.9 Schizophrenia, unspecified (principal); Z78.1 Physical restraint status; R45.851 Suicidal ideations; F79 Unspecified intellectual disabilities; Z91.148 Patient's other noncompliance with medication regimen for other reason; F12.90 Cannabis use, unspecified, uncomplicated; F43.10 Post-traumatic stress disorder, unspecified; Z88.8 Allergy status to other drugs, medicaments and biological substances; Z79.899 Other long term (current) drug therapy; F17.200 Nicotine dependence, unspecified, uncomplicated; K21.9 Gastro-esophageal reflux disease without esophagitis; E55.9 Vitamin D deficiency, unspecified; E87.6 Hypokalemia

== ENCOUNTER 2024-03-28 09:33 | Inpatient (IN) | payer OTHER ==
[~2024-03-28] VITALS: Ht 165.1 cm; Wt 77.3 kg
[~2024-03-28 09:33] MED LIST changes: +DEPA500T2 PO; +PROT1TAB2 PO; +RISP-106 PO
[2024-03-28 10:27] LABS: HEMATOCRIT 39.4 % (36.0-47.0); HEMOGLOBIN 13.2 g/dl (12.0-15.5); MEAN CORPUSCULAR HEMOGLOBIN 29.7 pg (27.0-33.0); MEAN CORPUSCULAR HGB CONC 33.5 g/dl (32.0-36.5); MEAN CORPUSCULAR VOLUME 88.7 fl (80.0-96.0); PLATELET COUNT, AUTOMATED 263 10^3/uL (150-450); RED BLOOD COUNT 4.44 10^6/uL (4.00-5.40); WHITE BLOOD COUNT 9.7 10^3/uL (4.0-10.0)
[2024-03-28 10:50] LABS: ETHYL ALCOHOL (ETHANOL) 0.004 % (0.000-0.010)
[2024-03-28 10:52] LABS: ALBUMIN 3.7 G/DL (3.2-5.2); ALKALINE PHOSPHATASE 66 U/L (35-104); ALT/SGPT < 9 U/L (7.0-40); AST/SGOT < 8 U/L (<34); BILIRUBIN,DIRECT < 0.1 MG/DL (<0.4); BILIRUBIN,TOTAL 0.2 MG/DL (0.3-1.2); BLOOD UREA NITROGEN 10 MG/DL (9-23); CALCIUM LEVEL 9.5 MG/DL (8.5-10.1); CARBON DIOXIDE LEVEL 23 MMOL/L (20-31); CHLORIDE LEVEL 106 MMOL/L (98-107); CREATININE FOR GFR 0.56 MG/DL (0.55-1.30); GLOMERULAR FILTRATION RATE > 60.0 (>60); GLUCOSE, FASTING 95 MG/DL (60-100); POTASSIUM SERUM 4.2 MMOL/L (3.5-5.1); SALICYLATE LEVEL < 3.0 MG/DL (<30); SODIUM LEVEL 140 MMOL/L (136-145); TOTAL PROTEIN 7.3 G/DL (5.7-8.2)
[2024-03-28 10:55] LABS: THYROID STIMULATING HORMONE 2.293 uIU/ML (0.55-4.78)
[2024-03-28 10:59] LABS: HCG, SERUM QUALITATIVE NEGATIVE (NEGATIVE)
[2024-03-28 11:33] LABS: AMPHETAMINES LEVEL URINE NEGATIVE (NEGATIVE); BARBITURATES URINE NEGATIVE (NEGATIVE); BENZODIAZEPINES URINE NEGATIVE (NEGATIVE); COCAINE METABOLITE URINE NEGATIVE (NEGATIVE); METHADONE URINE NEGATIVE (NEGATIVE); OPIATES URINE NEGATIVE (NEGATIVE); PHENCYCLIDINE URINE NEGATIVE (NEGATIVE)
[2024-03-28 11:34] LABS: CANNABINOIDS URINE POSITIVE (NEGATIVE)
[2024-03-28] MEDS: OLANZapine ORAL DISINTEGRATING TAB 5MG PO ONE (12:40)
[2024-03-28] MEDS ORDERED: DIVA500T9 PO (16:38)
[2024-03-28] MEDS ORDERED: BANO25TA PO (16:38)
[2024-03-28] MEDS ORDERED: PANT-23 PO (16:38)
[2024-03-28] MEDS ORDERED: D31000CA4 PO (16:47)
[2024-03-28] MEDS ORDERED: HOME MED LIST COMPLETE! XX SCH (16:50)
[2024-03-29] MEDS: diphenhydrAMINE 25MG CAP PO PRN (00:19)
[2024-03-29] MEDS: traZODone 50 MG TAB PO PRN (00:19)
[2024-03-29] MEDS: ACETAMINOPHEN 325 MG TAB PO PRN (00:20)
[2024-03-29 06:52] VITALS: BP 141/81; TEMP 97.1; O2SAT 96
[2024-03-29] MEDS: diphenhydrAMINE 25MG CAP PO ONE (10:29)
[2024-03-29] MEDS: LORazepam 2 MG TAB PO ONE (10:29)
[2024-03-29 11:04] VITALS: BP_SYST 131; BP_DIAS 8; BP_DIAS 80; TEMP 96.2; TEMP 96.7; O2SAT 98
[2024-03-29 11:19] VITALS: BP 125/80; TEMP 96.7; O2SAT 98
[2024-03-29] MEDS: BENZTROPINE 2 MG TAB PO SCH (11:41)
[2024-03-29] MEDS: VENLAFAXINE **XR** 75MG CAPSULE PO SCH (11:42)
[2024-03-29] MEDS: DIVALPROEX 500MG *ER* TAB PO SCH (20:47)
[2024-03-30] MEDS ORDERED: diphenhydrAMINE 25MG CAP PO PRN (09:55)
[2024-03-30] MEDS: diphenhydrAMINE 50MG CAP PO PRN (10:21)
[2024-03-30] MEDS: LORazepam 2 MG TAB PO PRN (10:42)
[2024-03-30] MEDS ORDERED: LORazepam 2 MG TAB PO SCH (12:00)
[2024-03-30] MEDS: TUBERCULIN PPD 5 UNITS/0.1 ML ID ONE (15:00)
[2024-03-30 17:10] VITALS: BP 131/69; TEMP 98.2; O2SAT 97
[2024-03-30] MEDS: traZODone 50 MG TAB PO PRN (19:42)
[2024-03-31] MEDS: DOCUSATE SODIUM 100MG CAPSULE PO SCH (10:28)
[2024-03-31] MEDS: busPIRone 10 MG TAB PO SCH (10:28)
[2024-03-31] MEDS: PANTOPRAZOLE 40MG TAB (PROTONIX) PO SCH (10:38)
[2024-03-31 15:00] VITALS: BP 127/79; TEMP 98; O2SAT 96
[2024-03-31] MEDS: PRAZOSIN 1 MG CAP PO SCH (20:13)
[2024-04-01] MEDS: MAALOX 30 ML SUSP *UDC PO PRN (01:21)
[2024-04-01] MEDS: [UNRECOGNIZED DRUG - REMARK] XX SCH (08:55)
[2024-04-01] MEDS: LORazepam 2 MG/ML 1ML VIAL IM STA (09:15)
[2024-04-01] MEDS: diphenhydrAMINE 50MG/ML VIAL IM STA (09:15)
[2024-04-01] MEDS: HALOPERIDOL LACTATE 5MG/ML VIAL IM STA (09:16)
[2024-04-01] MEDS ORDERED: TUBERCULIN PPD 5 UNITS/0.1 ML ID ONE (10:00)
[2024-04-01] MEDS ORDERED: PPD DOCUMENTATION ENTRY MISC XX ONE (15:00)
[2024-04-02 09:30] VITALS: BP 131/85; O2SAT 96
[2024-04-02 09:45] VITALS: BP 130/80; O2SAT 98
[2024-04-02] MEDS ORDERED: PPD DOCUMENTATION ENTRY MISC XX SCH (10:00)
[2024-04-02 10:15] VITALS: BP 114/62; O2SAT 90
[2024-04-02 14:46] VITALS: BP 144/60; TEMP 98.3; O2SAT 96
[2024-04-03 15:15] VITALS: BP 129/79; TEMP 98; O2SAT 98
[2024-04-03] MEDS: MOM 30ML SUSPENSION UDC PO PRN (19:31)
[2024-04-04 07:46] VITALS: BP 137/73; O2SAT 99
[2024-04-04 08:28] VITALS: TEMP 97.8
[2024-04-04 15:39] VITALS: BP 136/77; TEMP 98.2; O2SAT 97
[2024-04-04] MEDS: IBUPROFEN 400MG TAB PO PRN (16:53)
[2024-04-05] MEDS: diphenhydrAMINE 50MG CAP PO STA (14:08)
[2024-04-05] MEDS: LORazepam 2 MG TAB PO STA (14:08)
[2024-04-05 15:30] VITALS: BP 131/83; TEMP 97.6; O2SAT 97
[2024-04-05] MEDS: traZODone 100 MG TAB PO PRN (20:00)
[2024-04-06 17:40] VITALS: BP 129/92; TEMP 97.4; O2SAT 97
[2024-04-07] MEDS: HALOPERIDOL DECANOATE 100 MG/ML 1ML VIAL IM ONE (07:49)
[2024-04-07 17:17] VITALS: BP 110/68; TEMP 99.3; O2SAT 98
[2024-04-08 16:15] VITALS: BP 120/70; TEMP 97.7; O2SAT 96
[2024-04-09 16:05] VITALS: BP 163/70; TEMP 98.1; O2SAT 97
[2024-04-10] MEDS: PALIPERIDONE PAL 234MG/1.5ML INJ (INVEGA)(FREE PSY INPT ONLY) IM ONE (12:51)
[2024-04-11 16:16] VITALS: BP 111/69; TEMP 97.7; O2SAT 100
[2024-04-13] MEDS: HALOPERIDOL LACTATE 5MG/ML VIAL IM STA ×2 (11:56→13:03)
[2024-04-13] MEDS: LORazepam 2 MG/ML 1ML VIAL IM STA ×2 (11:56→13:07)
[2024-04-13] MEDS: diphenhydrAMINE 50MG/ML VIAL IM ONE (11:56)
[2024-04-13] MEDS ORDERED: chlorproMAZINE INJ 50MG/2ML AMP IM PRN (15:00)
[2024-04-15 16:22] VITALS: BP 128/79; TEMP 99; O2SAT 96
[2024-04-15] MEDS: DIVALPROEX 500MG *ER* TAB PO SCH (20:38)
[2024-04-16] MEDS ORDERED: OLANZapine ORAL DISINTEGRATING TAB 5MG PO STA (01:16)
[2024-04-16] MEDS: OLANZapine INTRAMUSCULAR 10MG VIAL IM STA (01:35)
[2024-04-16 15:19] VITALS: BP 141/64; TEMP 97; O2SAT 97
[2024-04-20 15:35] VITALS: BP 149/81; TEMP 97.2; O2SAT 98
[2024-04-21 16:46] VITALS: BP 116/70; TEMP 97.5; O2SAT 97
[2024-04-22 08:10] VITALS: BP 132/71; TEMP 97.3; O2SAT 97
[2024-04-22 15:04] VITALS: BP 134/72; TEMP 98.1; O2SAT 95
[2024-04-23 15:44] VITALS: BP 106/74; TEMP 97.4; O2SAT 99
[2024-04-25 15:55] VITALS: BP 122/76; TEMP 98.4; O2SAT 95
[2024-04-26 14:49] VITALS: BP 123/75; TEMP 98.2; O2SAT 100
[2024-04-27] MEDS ORDERED: DIVALPROEX 250MG *ER* TAB PO SCH (10:54)
[2024-04-27] MEDS: TUBERCULIN PPD 5 UNITS/0.1 ML ID ONE (11:57)
[2024-04-27 15:22] VITALS: BP 136/74; TEMP 99; O2SAT 97
[2024-04-27] MEDS: DIVALPROEX 250MG *ER* TAB PO SCH (21:07)
[2024-04-29] MEDS: PPD DOCUMENTATION ENTRY MISC XX SCH (10:19)
[2024-04-29 13:15] VITALS: BP 136/84; TEMP 97.7; O2SAT 98
[2024-04-29] MEDS: HALOPERIDOL DECANOATE 100 MG/ML 1ML VIAL IM ONE (14:29)
[2024-04-30 13:52] LABS: URINE PREG TEST NEGATIVE (NEGATIVE)
[2024-04-30 16:40] VITALS: BP 138/80; TEMP 97.8; O2SAT 99
[2024-05-01 17:20] VITALS: BP 121/76; TEMP 97.7; O2SAT 97
[2024-05-02] MEDS: BENZTROPINE 1 MG TAB PO SCH (09:12)
[2024-05-03 15:51] VITALS: BP 130/77; TEMP 98.4; O2SAT 95
[2024-05-03] MEDS: LORazepam 1 MG TAB PO PRN (20:37)
[2024-05-04 15:29] VITALS: BP 126/74; TEMP 97.6; O2SAT 96
[2024-05-05] MEDS: HALOPERIDOL DECANOATE 100 MG/ML 1ML VIAL IM ONE (13:51)
[2024-05-06 16:47] VITALS: BP 123/88; TEMP 97.6; O2SAT 100
[2024-05-10 06:38] VITALS: BP 129/72; TEMP 97; O2SAT 97
[2024-05-12 13:57] LABS: ALKALINE PHOSPHATASE 56 U/L (35-104); ALT/SGPT < 9 U/L (7.0-40); AST/SGOT < 8 U/L (<34); BILIRUBIN,TOTAL 0.2 MG/DL (0.3-1.2); BLOOD UREA NITROGEN 12 MG/DL (9-23); CALCIUM LEVEL 8.3 MG/DL (8.5-10.1); CARBON DIOXIDE LEVEL 28 MMOL/L (20-31); CHLORIDE LEVEL 107 MMOL/L (98-107); CREATININE FOR GFR 0.69 MG/DL (0.55-1.30); GLOMERULAR FILTRATION RATE > 60.0 (>60); GLUCOSE, FASTING 109 MG/DL (60-100); POTASSIUM SERUM 4.3 MMOL/L (3.5-5.1); SODIUM LEVEL 141 MMOL/L (136-145); TOTAL PROTEIN 6.3 G/DL (5.7-8.2)
[2024-05-12 15:12] VITALS: BP 110/65; TEMP 97.3; O2SAT 98
[2024-05-13 15:44] VITALS: BP 114/78; TEMP 97.1; O2SAT 95
[2024-05-13 20:45] VITALS: BP 147/84
[2024-05-14] MEDS ORDERED: DEPA250T2 PO (09:00)
[2024-05-14] MEDS ORDERED: HALO5TAB33 PO (09:00)
[2024-05-14] MEDS ORDERED: HALD100I2 IM (12:10)
[2024-05-14] MEDS: diphenhydrAMINE 50MG CAP PO ONE (12:11)
[2024-05-14] MEDS: LORazepam 2 MG TAB PO ONE (12:11)
== END 2024-05-14 14:50 | DRG 750 ==
LOC: M ED 09:33 → M ED INP 13:27 → M PSY 15:19
PROVIDERS: ADMIT Psychiatry & Neurology Psychiatry; ATTEND Psychiatry & Neurology Psychiatry
DX: F20.9 Schizophrenia, unspecified (principal); F43.10 Post-traumatic stress disorder, unspecified; F79 Unspecified intellectual disabilities; F12.90 Cannabis use, unspecified, uncomplicated; R45.851 Suicidal ideations; Z78.1 Physical restraint status; F17.200 Nicotine dependence, unspecified, uncomplicated; Z71.6 Tobacco abuse counseling; Z71.51 Drug abuse counseling and surveillance of drug abuser; Z79.899 Other long term (current) drug therapy; Z88.8 Allergy status to other drugs, medicaments and biological substances; Z91.148 Patient's other noncompliance with medication regimen for other reason

== ENCOUNTER 2024-07-26 20:38 | Inpatient (IN) | payer MEDICAID, OTHER ==
[~2024-07-26] VITALS: Ht 152.4 cm; Wt 84.2 kg
[2024-07-26 00:30] VITALS: BP 146/78; TEMP 97.2; O2SAT 98
[~2024-07-26 20:38] MED LIST changes: +D31000CA4 PO; +DIVA500T9 PO
[2024-07-26 21:33] LABS: HEMATOCRIT 37.4 % (36.0-47.0); HEMOGLOBIN 12.5 g/dl (12.0-15.5); MEAN CORPUSCULAR HEMOGLOBIN 28.9 pg (27.0-33.0); MEAN CORPUSCULAR HGB CONC 33.4 g/dl (32.0-36.5); MEAN CORPUSCULAR VOLUME 86.4 fl (80.0-96.0); PLATELET COUNT, AUTOMATED 232 10^3/uL (150-450); RED BLOOD COUNT 4.33 10^6/uL (4.00-5.40); WHITE BLOOD COUNT 9.5 10^3/uL (4.0-10.0)
[2024-07-26 22:04] LABS: AMPHETAMINES LEVEL URINE NEGATIVE (NEGATIVE)
[2024-07-26 22:05] LABS: BARBITURATES URINE NEGATIVE (NEGATIVE); BENZODIAZEPINES URINE NEGATIVE (NEGATIVE); COCAINE METABOLITE URINE NEGATIVE (NEGATIVE); METHADONE URINE NEGATIVE (NEGATIVE); OPIATES URINE NEGATIVE (NEGATIVE); PHENCYCLIDINE URINE NEGATIVE (NEGATIVE)
[2024-07-26 22:06] LABS: CANNABINOIDS URINE POSITIVE (NEGATIVE)
[2024-07-26 22:08] LABS: ETHYL ALCOHOL (ETHANOL) < 0.003 % (0.000-0.010)
[2024-07-26 22:09] LABS: SALICYLATE LEVEL < 3.0 MG/DL (<30)
[2024-07-26 22:13] LABS: ALBUMIN 3.5 G/DL (3.2-5.2); ALKALINE PHOSPHATASE 65 U/L (35-104); ALT/SGPT 10 U/L (7.0-40); AST/SGOT < 8 U/L (<34); BILIRUBIN,DIRECT 0.1 MG/DL (<0.4); BILIRUBIN,TOTAL 0.2 MG/DL (0.3-1.2); BLOOD UREA NITROGEN < 5 MG/DL (9-23); CALCIUM LEVEL 8.7 MG/DL (8.5-10.1); CARBON DIOXIDE LEVEL 28 MMOL/L (20-31); CHLORIDE LEVEL 105 MMOL/L (98-107); CREATININE FOR GFR 0.64 MG/DL (0.55-1.30); GLOMERULAR FILTRATION RATE > 90.0 (>60); GLUCOSE, FASTING 114 MG/DL (60-100); POTASSIUM SERUM 3.9 MMOL/L (3.5-5.1); SODIUM LEVEL 140 MMOL/L (136-145); THYROID STIMULATING HORMONE 0.538 uIU/ML (0.55-4.78); TOTAL PROTEIN 6.7 G/DL (5.7-8.2)
[2024-07-26 22:24] LABS: HCG, SERUM QUALITATIVE NEGATIVE (NEGATIVE)
[2024-07-26] MEDS ORDERED: ACETAMINOPHEN 325 MG TAB PO PRN (23:15)
[2024-07-26] MEDS ORDERED: IBUPROFEN 400MG TAB PO PRN (23:15)
[2024-07-26] MEDS ORDERED: MAALOX 30 ML SUSP *UDC PO PRN (23:15)
[2024-07-27 00:30] VITALS: BP 146/78; TEMP 97.2; O2SAT 98
[2024-07-27] MEDS ORDERED: BENA25CA4 PO (10:55)
[2024-07-27] MEDS ORDERED: HALO5TAB33 PO (10:55)
[2024-07-27] MEDS ORDERED: OLAN1TAB20 PO (10:55)
[2024-07-27] MEDS ORDERED: DIPH50CA29 PO (10:55)
[2024-07-27] MEDS ORDERED: CETI-24 PO (10:55)
[2024-07-27] MEDS ORDERED: FAMO20TA PO (10:55)
[2024-07-27] MEDS ORDERED: HALO10AM IM (10:55)
[2024-07-27] MEDS ORDERED: DIVA250T7 PO (10:55)
[2024-07-27] MEDS ORDERED: HOME MED LIST COMPLETE! XX SCH (11:00)
[2024-07-27] MEDS: CETIRIZINE (ZyrTEC) 10 MG TAB PO SCH (14:10)
[2024-07-27] MEDS: PANTOPRAZOLE 40MG TAB (PROTONIX) PO SCH (14:11)
[2024-07-27] MEDS: VENLAFAXINE **XR** 75MG CAPSULE PO SCH (14:11)
[2024-07-27] MEDS: FAMOTIDINE 20 MG TAB PO PRN (14:12)
[2024-07-27] MEDS: BENZTROPINE 2 MG TAB PO SCH (14:12)
[2024-07-27] MEDS: DOCUSATE SODIUM 100MG CAPSULE PO SCH (14:12)
[2024-07-27 15:54] VITALS: BP 136/83; TEMP 97.6; O2SAT 96
[2024-07-27] MEDS: busPIRone 10 MG TAB PO SCH (16:05)
[2024-07-27] MEDS: traZODone 50 MG TAB PO PRN (20:47)
[2024-07-27] MEDS: diphenhydrAMINE 50MG CAP PO SCH (20:47)
[2024-07-27] MEDS: DIVALPROEX 250MG *ER* TAB PO SCH (20:47)
[2024-07-27] MEDS: PRAZOSIN 1 MG CAP PO SCH (20:47)
[2024-07-27] MEDS: LORazepam 1 MG TAB PO PRN (20:49)
[2024-07-27] MEDS ORDERED: VENLAFAXINE **XR** 75MG CAPSULE PO SCH (21:00)
[2024-07-28] MEDS: HALOPERIDOL DECANOATE 100 MG/ML 1ML VIAL IM ONE (13:35)
[2024-07-28] MEDS: diphenhydrAMINE 25MG CAP PO PRN (14:51)
[2024-07-28 16:31] VITALS: BP 138/63; TEMP 96.9; O2SAT 99
[2024-07-28] MEDS: OLANZapine 5 MG TAB PO PRN (23:34)
[2024-07-29 06:45] VITALS: BP 113/62; TEMP 97.4; O2SAT 95
[2024-07-29 15:54] VITALS: BP 124/88; TEMP 97.9; O2SAT 96
[2024-07-29 18:15] VITALS: BP 142/79; TEMP 98.4; O2SAT 96
[2024-07-29] MEDS: HALOPERIDOL LACTATE 5MG/ML VIAL IM ONE (18:23)
[2024-07-29] MEDS: LORazepam 2 MG/ML 1ML VIAL IM ONE (18:23)
[2024-07-29 18:44] VITALS: BP 140/91; TEMP 97.1; O2SAT 96
[2024-07-29 20:14] VITALS: O2SAT 96
[2024-07-29] MEDS: traZODone 100 MG TAB PO SCH (20:44)
[2024-07-30] MEDS: QUEtiapine FUMARATE 50MG TAB PO PRN (01:23)
[2024-07-30 16:31] VITALS: BP 131/72; TEMP 97.1; O2SAT 98
[2024-07-30] MEDS: MOM 30ML SUSPENSION UDC PO PRN (18:19)
[2024-07-30] MEDS: LORazepam 2 MG/ML 1ML VIAL IV STA (20:08)
[2024-07-30] MEDS: OLANZapine INTRAMUSCULAR 10MG VIAL IM ONE (20:10)
[2024-07-30] MEDS: LORazepam 2 MG/ML 1ML VIAL IM STA (22:26)
[2024-07-31] MEDS: DIVALPROEX 500MG *ER* TAB PO SCH (19:50)
[2024-07-31] MEDS: BENZTROPINE 1 MG TAB PO SCH (19:51)
[2024-08-02 19:48] VITALS: BP 140/80
[2024-08-03] MEDS ORDERED: VENL75CA47 PO (12:09)
[2024-08-03] MEDS ORDERED: TRAZ-257 PO (12:09)
[2024-08-03] MEDS ORDERED: DIPH-435 PO (12:09)
[2024-08-03] MEDS ORDERED: QUET50TA4 PO (12:09)
[2024-08-03] MEDS ORDERED: BENZ1TAB5 PO (12:09)
[2024-08-03] MEDS ORDERED: DEPA500T2 PO (12:09)
[2024-08-03] MEDS ORDERED: OLAN1TAB16 PO (12:09)
[2024-08-03] MEDS ORDERED: ATIV1TAB7 PO (12:09)
== END 2024-08-03 14:14 | disposition home or self-care (01) | DRG 750 ==
LOC: M ED 20:38 → M ED INP 23:15 → M PSY 07-27 03:05
PROVIDERS: ADMIT Psychiatry & Neurology Neurology; ATTEND Psychiatry & Neurology Neurology
DX: F25.0 Schizoaffective disorder, bipolar type (principal); R45.850 Homicidal ideations; R45.851 Suicidal ideations; F41.9 Anxiety disorder, unspecified; F12.10 Cannabis abuse, uncomplicated; F60.3 Borderline personality disorder; F17.210 Nicotine dependence, cigarettes, uncomplicated; Z62.810 Personal history of physical and sexual abuse in childhood; Z88.8 Allergy status to other drugs, medicaments and biological substances; Z79.899 Other long term (current) drug therapy

== ENCOUNTER 2024-10-31 13:14 | Inpatient (IN) | payer OTHER ==
[~2024-10-31] VITALS: Ht 157.5 cm; Wt 81.2 kg
[~2024-10-31 13:14] MED LIST changes: +CETI-24 PO; +DEPA250T PO; -DEPA250T2 PO; -DEPA250T32 PO; +DIPH-435 PO; +DIPH50CA29 PO; +DIVA-65 PO; +FAMO20TA PO; +LORA-1164 PO; -LORA-622 PO; +OLAN1TAB16 PO; +QUET50TA4 PO; +SENN-225 PO; -SENO8.6T5 PO
[2024-10-31 14:22] LABS: PLATELET COUNT, AUTOMATED 275 10^3/uL (150-450)
[2024-10-31 14:26] LABS: KETONE, URINE AUTO RFX TRACE mg/dL (NEGATIVE); LEUKOCYTE ESTERASE UR AUTO RFX 3+ (NEGATIVE); MUCUS, URINE RFX SMALL (NEGATIVE); NITRITE, URINE AUTO RFX NEGATIVE (NEGATIVE); RBC, URINE AUTO RFX 8 /HPF (0-3); SQUAM EPITHELIAL CELL UR AURFX 23 /HPF (0-6); WBC, URINE AUTO RFX 31 /HPF (0-3)
[2024-10-31 14:40] LABS: AMPHETAMINES LEVEL URINE NEGATIVE (NEGATIVE); BARBITURATES URINE NEGATIVE (NEGATIVE); BENZODIAZEPINES URINE NEGATIVE (NEGATIVE); COCAINE METABOLITE URINE NEGATIVE (NEGATIVE); METHADONE URINE NEGATIVE (NEGATIVE); OPIATES URINE NEGATIVE (NEGATIVE); PHENCYCLIDINE URINE NEGATIVE (NEGATIVE)
[2024-10-31 14:43] LABS: ETHYL ALCOHOL (ETHANOL) < 0.003 % (0.000-0.010)
[2024-10-31 14:45] LABS: ALT/SGPT < 9 U/L (7.0-40); AST/SGOT 14 U/L (<34); CALCIUM LEVEL 9.4 MG/DL (8.5-10.1); CARBON DIOXIDE LEVEL 24 MMOL/L (20-31); CHLORIDE LEVEL 104 MMOL/L (98-107); CREATININE FOR GFR 0.69 MG/DL (0.55-1.30); GLOMERULAR FILTRATION RATE > 90.0 (>60); POTASSIUM SERUM 4.2 MMOL/L (3.5-5.1); SALICYLATE LEVEL < 3.0 MG/DL (<30); SODIUM LEVEL 140 MMOL/L (136-145)
[2024-10-31 14:47] LABS: CANNABINOIDS URINE POSITIVE (NEGATIVE)
[2024-10-31 14:49] LABS: HCG, SERUM QUALITATIVE NEGATIVE (NEGATIVE)
[2024-10-31] MEDS ORDERED: ACETAMINOPHEN 325 MG TAB PO PRN (16:55)
[2024-10-31] MEDS ORDERED: MAALOX 30 ML SUSP *UDC PO PRN (16:55)
[2024-10-31] MEDS ORDERED: HOME MED LIST COMPLETE! XX SCH (18:00)
[2024-10-31 18:20] VITALS: BP 139/76; TEMP 97.1; O2SAT 92
[2024-10-31] MEDS: HALOPERIDOL 5 MG TAB PO PRN (20:25)
[2024-10-31] MEDS: traZODone 50 MG TAB PO PRN (20:25)
[2024-10-31] MEDS: BENZTROPINE 0.5 MG TAB PO PRN (20:25)
[2024-11-01] VITALS (9 sets, daily range): BP systolic 122–179; BP diastolic 58–108; TEMP 97.8–98; O2SAT 98
[2024-11-01] MEDS: HALOPERIDOL 5 MG TAB PO SCH (09:03)
[2024-11-01] MEDS: IBUPROFEN 400 MG TAB PO PRN (16:07)
[2024-11-01] MEDS: busPIRone 5 MG TAB PO SCH (20:37)
[2024-11-01] MEDS: OLANZapine 5 MG TAB PO PRN (20:38)
[2024-11-01] MEDS: PRAZOSIN 1 MG CAP PO SCH (20:38)
[2024-11-02] MEDS: VENLAFAXINE **XR** 75MG CAPSULE PO SCH (08:08)
[2024-11-02] MEDS: NICOTINE POLACRILEX 2 MG GUM PO PRN (16:38)
[2024-11-02 16:40] VITALS: BP 139/65; TEMP 97.7; O2SAT 97
[2024-11-02] MEDS: QUEtiapine FUMARATE 50MG TAB PO ONE (21:40)
[2024-11-03] MEDS: HALOPERIDOL DECANOATE 100 MG/ML 1 ML VIAL IM ONE (12:05)
[2024-11-03 15:18] VITALS: BP 147/58; TEMP 97.6; O2SAT 100
[2024-11-03 17:31] LABS: KETONE, URINE AUTO RFX NEGATIVE (NEGATIVE); NITRITE, URINE AUTO RFX NEGATIVE (NEGATIVE); RBC, URINE AUTO RFX TNTC /HPF (0-3); SQUAM EPITHELIAL CELL UR AURFX 12 /HPF (0-6)
[2024-11-03 17:33] LABS: LEUKOCYTE ESTERASE UR AUTO RFX 3+ (NEGATIVE); WBC, URINE AUTO RFX 69 /HPF (0-3)
[2024-11-03 18:24] LABS: Trichomonas vaginalis (AMP) POSITIVE (NEGATIVE)
[2024-11-03 19:01] LABS: GC DNA AMPLIFICATION NEGATIVE (NEGATIVE)
[2024-11-03] MEDS ORDERED: NITROFURANTOIN 100 MG CAP PO SCH (21:00)
[2024-11-04] MEDS: QUEtiapine FUMARATE 50MG TAB PO ONE (00:57)
[2024-11-04 15:27] VITALS: BP 134/69; TEMP 97.5; O2SAT 98
[2024-11-04] MEDS: QUEtiapine FUMARATE 50MG TAB PO PRN (20:09)
[2024-11-05] MEDS: MOM 30 ML SUSPENSION UDC PO PRN (00:53)
[2024-11-05] MEDS: QUEtiapine FUMARATE 50MG TAB PO ONE ×2 (00:53→22:55)
[2024-11-05 20:01] VITALS: BP 134/69
[2024-11-06] MEDS ORDERED: QUET50TA4 PO (08:15)
[2024-11-06] MEDS ORDERED: BUSP5TA PO (08:15)
[2024-11-06] MEDS ORDERED: VENL75CA47 PO (08:15)
[2024-11-06] MEDS ORDERED: PRAZ1CAP PO (08:15)
== END 2024-11-06 11:54 | disposition home or self-care (01) | DRG 750 ==
LOC: M ED 13:14 → EDBD 13:14 → M ED INP 16:51 → M PSY 18:12
PROVIDERS: ADMIT General Practice; ATTEND General Practice
DX: F25.0 Schizoaffective disorder, bipolar type (principal); Z78.1 Physical restraint status; F12.90 Cannabis use, unspecified, uncomplicated; F43.10 Post-traumatic stress disorder, unspecified; Z56.0 Unemployment, unspecified; Z88.8 Allergy status to other drugs, medicaments and biological substances; Z62.810 Personal history of physical and sexual abuse in childhood; Z79.899 Other long term (current) drug therapy; F17.200 Nicotine dependence, unspecified, uncomplicated; Z71.6 Tobacco abuse counseling; G47.00 Insomnia, unspecified; L29.2 Pruritus vulvae

== ENCOUNTER → 2024-11-16 | Outpatient (REF) ==
[~2024-11-16] MED LIST changes: +BUSP5TA PO
[2024-11-17 01:03] LABS: ETHYL ALCOHOL (ETHANOL) < 0.003 % (0.000-0.010)
[2024-11-17 01:07] LABS: THYROXINE (T4) 9.9 UG/DL (4.5-10.9)
== END ==
LOC: M LAB REF 22:42
DX: Z02.83 Encounter for blood-alcohol and blood-drug test (principal)

== ENCOUNTER 2025-01-17 19:06 | Emergency (ER) | payer MEDICAID, OTHER ==
[~2025-01-17] VITALS: Ht 157.5 cm; Wt 82.0 kg
[2025-01-17 20:06] LABS: AMPHETAMINES LEVEL URINE NEGATIVE (NEGATIVE); BARBITURATES URINE NEGATIVE (NEGATIVE); BENZODIAZEPINES URINE NEGATIVE (NEGATIVE); COCAINE METABOLITE URINE NEGATIVE (NEGATIVE); METHADONE URINE NEGATIVE (NEGATIVE); OPIATES URINE NEGATIVE (NEGATIVE); PHENCYCLIDINE URINE NEGATIVE (NEGATIVE)
[2025-01-17 20:12] LABS: PLATELET COUNT, AUTOMATED 277 10^3/uL (150-450)
[2025-01-17 20:17] LABS: CANNABINOIDS URINE POSITIVE (NEGATIVE)
[2025-01-17 20:33] LABS: ETHYL ALCOHOL (ETHANOL) 0.004 % (0.000-0.010)
[2025-01-17 20:34] LABS: SALICYLATE LEVEL < 3.0 MG/DL (<30)
[2025-01-17 20:35] LABS: ALT/SGPT < 9 U/L (7.0-40); AST/SGOT 11 U/L (<34); CALCIUM LEVEL 9.3 MG/DL (8.5-10.1); CARBON DIOXIDE LEVEL 24 MMOL/L (20-31); CHLORIDE LEVEL 105 MMOL/L (98-107); CREATININE FOR GFR 0.79 MG/DL (0.55-1.30); GLOMERULAR FILTRATION RATE > 90.0 (>60); POTASSIUM SERUM 3.9 MMOL/L (3.5-5.1); SODIUM LEVEL 134 MMOL/L (136-145)
[2025-01-17 20:40] LABS: HCG, SERUM QUALITATIVE NEGATIVE (NEGATIVE)
[2025-01-17 21:40] VITALS: BP 148/83; TEMP 96.9; O2SAT 98
== END 2025-01-17 21:50 | disposition home or self-care (01) ==
LOC: M ED 19:06
DX: Z04.6 Encounter for general psychiatric examination, requested by authority (principal); F32.A Depression, unspecified; F20.9 Schizophrenia, unspecified; F43.10 Post-traumatic stress disorder, unspecified; F17.200 Nicotine dependence, unspecified, uncomplicated; F12.10 Cannabis abuse, uncomplicated; Z88.8 Allergy status to other drugs, medicaments and biological substances; Z79.899 Other long term (current) drug therapy